=== PATIENT | female | born 1980 | race Caucasian/White ===

== ENCOUNTER 2021-06-23 14:07 | Inpatient (IN) ==
[2021-06-23 14:12] VITALS: BMI 34.3
[2021-06-23] MEDS ORDERED: ZOFRAN INJ 4 MG VIAL ONE (14:17)
[2021-06-23] MEDS ORDERED: NS 1,000 ML IV 1,000 ML ONE ×2 (14:17→17:36)
[2021-06-23] MEDS ORDERED: NS 1,000 ML IV 1,000 ML IV ONE (14:30)
[2021-06-23] MEDS ORDERED: ZOFRAN INJ 4 MG VIAL IVP ONE (14:30)
--- NOTE | 2021-06-23 15:06 | DR.SOBA ---
HPI Time Seen Time Seen by Provider: 06/23/21 14:45 Primary Care Physician Primary Care Physician: WOODY Complaints Chief Complaint Doctors Comments: 40 y/o female, ill for 1 week. Having a harsh, barky cough. Saw her MD. Has tested negative for Covid twice. Was treated with IM rocephin/steroid, then d/c'd to home with cefdinir, steroids and nebulizer treatment. Not much better. went back to work today. Started feeling dyspnea with exertion from her desk. + developed nausea, vomited x 1 after eating lunch. Started becoming lightheaded, nauseous, diaphoretic. Came here. Denies chest pain. No previous h/o lung or cardiac issues in the past. Chief Complaint:: PATIENT STATES SHE HAS BEEN HAVING DIFFICULTY BREATHING THAT STARTED TODAY. PATIENT STATES SHE HAS BEEN SICK FOR THE PAST WEEK AND SHE HAS BEEN TESTED FOR COVID TWICE, BUT WAS NEGATIVE. PATIENT HAS BEEN BEIUNG TREATED FOR A UPPER RESP INFECTION WITH ANTIBIOTIC AND BREATHING TREATMENTS. PATINET STATES SHE IS VERY NASUEATED AND SHE HAS VOMITED TODAY COVID-19 Coronavirus risk:travel/contact w/high risk person: No Has patient experienced Coronavirus symptoms: Yes Coronavirus symptoms experienced: Shortness of Breath Reviewed Nurses Notes Reviewed: Yes Source History Provided: Patient Mode of Arrival Mode of Arrival: Ambulatory Timing Onset of Chief Complaint: 06/16/21 PMH PMH Past Medical History: No Past Surgical History: Yes Surgical History: Family History History of Family Medical Conditions: Yes Family Medical History: Diabetes Mellitus, [place], Coronary Artery Disease and Hypertension Social History Does any household member use tobacco: No Alcohol Use: None Do you use any recreational Drugs:: No Lives With: Family Lives Where: Home Travel Risk Coronavirus risk:travel/contact w/high risk person: No Has patient experienced Coronavirus symptoms: Yes Coronavirus symptoms experienced: Shortness of Breath Infectious screening In the last 2 months have you had wt loss of >10#?: NO Have you had fever, night sweats or hemotysis?: No Have you traveled outside the country in the last 6 months?: No Isolation: Droplet ROS Review of Systems Constitutional: Diaphoresis and Weakness Eyes: No Symptoms Reported ENTM: No Symptoms Reported Respiratoy: Non-Productive Cough and Short of Breath Cardiovascular: No Symptoms Reported Gastrointestinal/Abdominal: Nausea and Vomiting Genitourinary: No Symptoms Reported Neurological: Weakness Musculoskeletal: No Symptoms Reported Integumentary: No Symptoms Reported Hematologic/Lymphatic: No Symptoms Reported Psychiatric: No Symptoms Reported All Other Systems: Reviewed and Negative PE Vital Signs Vitals: Temperature 97.6 F Pulse Rate 130 Respiratory Rate 20 Blood Pressure [Left Arm] 112/64 Blood Pressure 159/85 O2 Sat by Pulse Oximetry 93 General Limitations: No Limitations General Appearance: Alert and In No Apparent Distress Head Head Exam: Normal Inspection Eyes Eye exam: Normal Appearance, PERRL and EOMI ENT ENT Exam: Normal Exam and Mucous Membranes Moist Neck Neck Exam: Normal Inspection Chest Chest Inspection: Normal Inspection Respiratory Respiratory Exam: Normal Lung Sounds Bilat; negative Accessory Muscle Use and Respiratory Distress Respiratory Exam: Bilateral: Clear to Auscultation Cardiovascular Cardiovascular Exam: Regular Rate, Normal Rhythm and Normal Heart Sounds Abdominal Exam Abdominal Exam: Normal Inspection, Normal Bowel Sounds and Soft; negative Tenderness Extremities Extremities Exam: Normal Inspection, Full ROM and Tenderness; negative Edema Back Back Exam: Normal Inspection Neurologic Neurological Exam: Alert, Oriented X3 and CN II-XII Intact; negative Motor Senso ry Deficit Psychiatric Psychiatric Exam: Normal Affect Skin Skin Exam: Warm and Dry MDM Differential Diagnosis Differential Diagnosis: Bronchitis, CHF and Pneumonia Differential Diagnosis Comment:: Covid, Flu COURSE Treatment Treatment: Pt ill with URI symptoms over the past week, already treated with steroids/antibiotics. Feeling worse today. W/u initiated. Results show CXR to be acceptable. Chemistries with elevated WBC and hyperglycemia (483). Both possibly due to steroids (was on decadron 12 mg qday). Denies previous h/o DM. EMR shows glucose to have been elevated in the 200s last visit 2018 (had steroids then too, per pt). Recommend admission. Discussed with Dr Dow, covering for admissions, she accepts the admission. Pt given 5 U regular insulin here, additional IV fluids. Will admit on a sliding scale. ROR Labs Reviewed Result Diagrams: 06/23/21 14:00 06/23/21 14:00 Laboratory: WBC 15.1 X10^3/uL (3.6-10.0) H 06/23/21 14:00 RBC 5.05 X10^6/uL (3.5-5.4) 06/23/21 14:00 Hgb 9.0 g/dL (12.0-16.0) L 06/23/21 14:00 Hct 30.2 % (36.0-47.0) L 06/23/21 14:00 MCV 59.9 fL (80.0-100.0) L 06/23/21 14:00 MCH 17.8 pg (27.0-34.0) L 06/23/21 14:00 MCHC 29.8 g/dL (33.0-35.0) L 06/23/21 14:00 RDW 20.5 % (11.6-16.5) H 06/23/21 14:00 Plt Count 648 X10^3/uL (150.0-450.0) H 06/23/21 14:00 Plt Count Comment Increased (ADEQUATE) A 06/23/21 14:00 MPV 8.1 fL (7.4-11.0) 06/23/21 14:00 Neut % (Auto) 90.0 % (42.0-75.0) H 06/23/21 14:00 Lymph % (Auto) 6.5 % (21.0-51.0) L 06/23/21 14:00 [place] % (Auto) 3.1 % (0.0-13.0) 06/23/21 14:00 Eos % (Auto) 0.1 % (0.9-2.9) L 06/23/21 14:00 Baso % (Auto) 0.3 % (0.2-1.0) 06/23/21 14:00 Neut # (Auto) 13.6 x10^3/uL (2.2-4.8) H 06/23/21 14:00 Lymph # (Auto) 1.0 X10^3/uL (1.3-2.9) L 06/23/21 14:00 [place] # (Auto) 0.5 x10^3/uL (0.3-0.8) 06/23/21 14:00 Eos # (Auto) 0.0 x10^3/uL (0.0-0.2) 06/23/21 14:00 Baso # (Auto) 0.0 X10^3/uL (0.0-0.1) 06/23/21 14:00 Absolute Nucleated RBC 0.1 /100WBC 06/23/21 14:00 Plt Morphology Comment Normal (NORMAL) 06/23/21 14:00 RBC Morphology Abnormal (NORMAL) A 06/23/21 14:00 Anisocytosis 1+ A 06/23/21 14:00 Microcytosis 3+ A 06/23/21 14:00 Sodium 123 mmol/L (136-145) L* 06/23/21 14:00 Corrected Sodium 132 mmol/L (136-145) L 06/23/21 14:00 Potassium 4.8 mmol/L (3.5-5.1) 06/23/21 14:00 Chloride 89 mmol/L (98-107) L 06/23/21 14:00 Carbon Dioxide 24.0 mmol/L (21-32) 06/23/21 14:00 BUN 16 mg/dL (7-18) 06/23/21 14:00 Creatinine 1.02 mg/dL (0.55-1.02) 06/23/21 14:00 Est GFR (MDRD) Af Amer > 60 (>60) 06/23/21 14:00 Est GFR (MDRD) Non-Af > 60 (>60) 06/23/21 14:00 Glucose 483 mg/dL (65-99) H 06/23/21 14:00 Calcium 9.7 mg/dL (8.5-10.1) 06/23/21 14:00 Corrected Calcium 10.3 mg/dL (8.5-10.1) H 06/23/21 14:00 Total Bilirubin 1.00 mg/dL (0.2-1.0) 06/23/21 14:00 AST 7 Units/L (15-37) L 06/23/21 14:00 ALT 11 Units/L (12-78) L 06/23/21 14:00 Alkaline Phosphatase 83 Units/L (46-116) 06/23/21 14:00 Creatine Kinase 14 Units/L (26-192) L 06/23/21 14:00 CK-MB (CK-2) < 1.0 ng/mL (0-4.0) 06/23/21 14:00 CK/CKMB % Calc 7.1 % (<4) 06/23/21 14:00 Troponin I High Sens < 4.0 ng/L (4.0-60.0) L 06/23/21 14:00 Total Protein 9.7 g/dL (6.4-8.2) H 06/23/21 14:00 Albumin 3.3 g/dL (3.4-5.0) L 06/23/21 14:00 Globulin 6.4 g/dL (2.5-4.5) H 06/23/21 14:00 Albumin/Globulin Ratio 0.5 Ratio (1.1-2.1) L 06/23/21 14:00 SARS-CoV-2 (PCR) Negative (NEGATIVE) 06/23/21 15:00 Influenza Type A (PCR) Negative (NEGATIVE) 06/23/21 15:00 Influenza Type B (PCR) Negative (NEGATIVE) 06/23/21 15:00 RSV (PCR) Negative (NEGATIVE) 06/23/21 15:00 Opioid Opioid Risk Tool Age ([place] box if 16-45): Yes History of Preadolescent Sexual Abuse: No Total: 1 Total Score Risk Category: Low Risk Copyright: Darius CARRANZA predicting aberrant behaviors Diagnosis Discharge Problem: New onset type 2 diabetes mellitus, Hyponatremia
--- NOTE | 2021-06-23 15:30 | RAD ---
HISTORYDYSPNEA, CP, N/V CSECTION,STUDYCHEST, 1 VIEWCOMPARISONChest x-ray dated March 06, 2019.FINDINGSThe trachea is midline. The cardiac silhouette is unremarkable. The lungs are clear without focal infiltrate, pneumothorax, or effusion. The bony thorax is unremarkable.IMPRESSIONNo acute cardiopulmonary findings .Electronically signed by: ANTHONY GONZALEZ (Jun 23, 2021 15:29:29)
[2021-06-23 15:46] LABS: MONOCYTES # (AUTO) 0.5 x10^3/uL (0.3-0.8); MONOCYTES % (AUTO) 3.1 % (0.0-13.0)
[2021-06-23 15:51] LABS: BASOPHILS % (AUTO) 0.3 % (0.2-1.0); EOSINOPHILS % (AUTO) 0.1 % (0.9-2.9); HEMATOCRIT 30.2 % (36.0-47.0); LYMPHOCYTES % (AUTO) 6.5 % (21.0-51.0); MEAN CORPUSCULAR HEMOGLOBIN 17.8 pg (27.0-34.0); MEAN CORPUSCULAR HGB CONC 29.8 g/dL (33.0-35.0); MEAN CORPUSCULAR VOLUME 59.9 fL (80.0-100.0); MEAN PLATELET VOLUME 8.1 fL (7.4-11.0); NEUTROPHILS # (AUTO) 13.6 x10^3/uL (2.2-4.8); PLATELET COUNT 648 X10^3/uL (150.0-450.0); RED BLOOD COUNT 5.05 X10^6/uL (3.5-5.4); RED CELL DISTRIBUTION WIDTH 20.5 % (11.6-16.5); WHITE BLOOD COUNT 15.1 X10^3/uL (3.6-10.0)
[2021-06-23 15:55] LABS: MICROCYTOSIS 3+; PLATELET MORPHOLOGY COMMENT NORMAL (NORMAL)
[2021-06-23 15:56] LABS: ANISOCYTOSIS 1+
[2021-06-23 16:06] LABS: ALANINE AMINOTRANSFERASE 11 Units/L (12-78); ALBUMIN 3.3 g/dL (3.4-5.0); ALKALINE PHOSPHATASE 83 Units/L (46-116); ASPARTATE AMINO TRANSFERASE 7 Units/L (15-37); BLOOD UREA NITROGEN 16 mg/dL (7-18); CALCIUM 9.7 mg/dL (8.5-10.1); CHLORIDE 89 mmol/L (98-107); CKMB % 7.1 % (<4); COR CA(FOR HYPOALB) 10.3 mg/dL (8.5-10.1); COR NA(FOR HYPERGLY) 132 mmol/L (136-145); CREATINE KINASE 14 Units/L (26-192); CREATINE KINASE MB < 1.0 ng/mL (0-4.0); CREATININE 1.02 mg/dL (0.55-1.02); TOTAL PROTEIN 9.7 g/dL (6.4-8.2); eGFR NON BLACK RACES > 60 (>60)
[2021-06-23 16:09] LABS: SODIUM 123 mmol/L (136-145)
[2021-06-23] MEDS ORDERED: NovoLIN R (or HumuLIN R) IV ONE (17:26)
[2021-06-23] MEDS ORDERED: NovoLIN R (or HumuLIN R) ONE (17:36)
[2021-06-23] MEDS ORDERED: NS 1,000 ML IV 1,000 ML IV SCH (18:00)
[2021-06-23] MEDS ORDERED: NovoLIN R (or HumuLIN R) SUBCUT PRN (18:05)
[2021-06-23] MEDS: NS 1,000 ML IV 1,000 ML IV SCH (19:18)
[2021-06-23] MEDS ORDERED: SNACK - Diabetic Appropriate PO SCH ×2 (20:00)
[2021-06-24] MEDS: NS 1,000 ML IV 1,000 ML IV SCH (03:36)
[2021-06-24 05:25] LABS: BASOPHILS # (AUTO) 0.1 X10^3/uL (0.0-0.1); BASOPHILS % (AUTO) 0.7 % (0.2-1.0); EOSINOPHILS # (AUTO) 0.2 x10^3/uL (0.0-0.2); EOSINOPHILS % (AUTO) 2.3 % (0.9-2.9); HEMATOCRIT 25.5 % (36.0-47.0); HEMOGLOBIN 7.7 g/dL (12.0-16.0); MEAN CORPUSCULAR VOLUME 59.9 fL (80.0-100.0); MEAN PLATELET VOLUME 7.8 fL (7.4-11.0); MONOCYTES # (AUTO) 0.7 x10^3/uL (0.3-0.8); MONOCYTES % (AUTO) 8.4 % (0.0-13.0); NEUTROPHILS # (AUTO) 4.9 x10^3/uL (2.2-4.8); NEUTROPHILS % (AUTO) 62.6 % (42.0-75.0); PLATELET COUNT 431 X10^3/uL (150.0-450.0); RED BLOOD COUNT 4.26 X10^6/uL (3.5-5.4); RED CELL DISTRIBUTION WIDTH 20.3 % (11.6-16.5); WHITE BLOOD COUNT 7.8 X10^3/uL (3.6-10.0)
[2021-06-24 05:35] LABS: ALANINE AMINOTRANSFERASE 10 Units/L (12-78); ALBUMIN 2.7 g/dL (3.4-5.0); ALKALINE PHOSPHATASE 59 Units/L (46-116); ASPARTATE AMINO TRANSFERASE 7 Units/L (15-37); BLOOD UREA NITROGEN 11 mg/dL (7-18); CALCIUM 8.8 mg/dL (8.5-10.1); CARBON DIOXIDE 29.1 mmol/L (21-32); CHLORIDE 98 mmol/L (98-107); COR CA(FOR HYPOALB) 9.8 mg/dL (8.5-10.1); COR NA(FOR HYPERGLY) 134 mmol/L (136-145); CREATININE 0.59 mg/dL (0.55-1.02); SODIUM 132 mmol/L (136-145); TOTAL PROTEIN 7.7 g/dL (6.4-8.2); eGFR NON BLACK RACES > 60 (>60)
[2021-06-24 06:01] LABS: PLATELET MORPHOLOGY COMMENT NORMAL (NORMAL)
[2021-06-24 06:02] LABS: ANISOCYTOSIS 1+; HYPOCHROMASIA 2+; MICROCYTOSIS 3+
[2021-06-24 08:44] LABS: HEMOGLOBIN A1C 8.2 %
[2021-06-24] MEDS ORDERED: FOLIC ACID TAB 1 MG PO SCH (10:00)
[2021-06-24 11:48] LABS: HEMATOCRIT 27.1 % (36.0-47.0); HEMOGLOBIN 8.1 g/dL (12.0-16.0)
--- NOTE | 2021-06-24 12:36 | DR.SSS ---
SHORT STAY SUMMARY Admission Date Date of Admission: 06/23/21 Discharge Date Discharge Date: 06/24/21 Admission Diagnoses Admission Diagnoses: Hyponatremia Hyperglycemia Anemia Discharge Diagnoses Discharge Diagnoses: Hyponatremia Idon deficiency anemia Type 2 diabetes mellitus Folic deficiency Chief Complaint Chief Complaint: nausea, dizziness History of Present Illness History of Present Illness: Ms Rob is a 40 y/o female with no pertinent PMH presented with dizziness, nausea and diaphoresis. She had been sick for the past week with URI Sx. She saw her PCP and was tested for COVID twice, both negative. She was treated with abx and steroids. She reports going back to work yesterday and started feeling dizzy with nausea so came to the ER. Denies chest pain or SOB. Denies fever or chills. Patient states her URI Sx have improved. In the ER, she was noted to have hyponatremia and hyperglycemia. Her covid test was negative and also normal cardiac enzymes. Her glucose was above 400 and she was started on IV fluids and insulin. Denies hx of diabetes. Patient was admitted for further care. Past Surgical History Surgical History: Allergies Allergies Allergy/AdvReac Type Severity Reaction Status Date / Time No Known Drug Allergies Allergy Verified 03/06/19 21:36 Medications Home Medications: No Known Drug Allergies Allergy (Verified 03/06/19 21:36) CONTINUE taking the following medications albuterol sulfate [ProAir HFA] 2 puff INHALATION Q4-6H PRN 06/23/21 [History] ipratropium-albuterol 3 ml INHALATION Q4-6H PRN 06/23/21 [History] New Prescriptions ferrous gluconate 324 mg PO BIDWM 30 Days #60 tab 06/24/21 [Rx] folic acid 1 mg PO DAILY 30 Days #30 tab 06/24/21 [Rx] metformin 500 mg PO BIDWM 30 Days #60 tab 06/24/21 [Rx] Family History Family Medical History: Diabetes Mellitus, [place], Coronary Artery Disease and Hypertension Social History Does patient currently use any type of tobacco product: No Have you used tobacco products in the last 12 months: No Type of Tobacco Use: None Does any household member use tobacco: No Alcohol Use: None Drug Use: None Review of Systems Constitutional: Weakness and Malaise Eyes: No Symptoms Reported ENT: No Symptoms Reported Respiratory: Cough Cardiovascular: No Symptoms Reported Gastrointestinal: Nausea Genitourinary: No Symptoms Reported Musculoskeletal: No Symptoms Reported Skin: No Symptoms Reported Neurological: No Symptoms Reported Physical Exam Vital Signs: Last Vital Signs Temp 98.1 F 06/24/21 08:00 Pulse 94 H 06/24/21 08:00 Resp 20 06/24/21 08:00 BP 136/77 06/24/21 08:00 Pulse Ox 98 06/24/21 08:00 Oriented: Normal Eyes: Normal Ear: Normal Nose: Normal Throat: Normal Respiratory: Clear Throughout Cardiovascular: Normal Auscultation: Bowel Sounds: Normal Palpation: Normal Tenderness: Normal Skin: Normal Musculoskeletal: Normal Psychiatric: Normal Mood Description: Calm Affect: Normal Speech Pattern: Clear and Appropriate Labs Labs: Laboratory Last Values WBC 7.8 X10^3/uL (3.6-10.0) 06/24/21 04:40 RBC 4.26 X10^6/uL (3.5-5.4) 06/24/21 04:40 Hgb 8.1 g/dL (12.0-16.0) L 06/24/21 11:41 Hct 27.1 % (36.0-47.0) L 06/24/21 11:41 MCV 59.9 fL (80.0-100.0) L 06/24/21 04:40 MCH 18.0 pg (27.0-34.0) L 06/24/21 04:40 MCHC 30.0 g/dL (33.0-35.0) L 06/24/21 04:40 RDW 20.3 % (11.6-16.5) H 06/24/21 04:40 Plt Count 431 X10^3/uL (150.0-450.0) 06/24/21 04:40 Plt Count Comment Adequate (ADEQUATE) 06/24/21 04:40 MPV 7.8 fL (7.4-11.0) 06/24/21 04:40 Neut % (Auto) 62.6 % (42.0-75.0) 06/24/21 04:40 Lymph % (Auto) 26.0 % (21.0-51.0) 06/24/21 04:40 [place] % (Auto) 8.4 % (0.0-13.0) 06/24/21 04:40 Eos % (Auto) 2.3 % (0.9-2.9) 06/24/21 04:40 Baso % (Auto) 0.7 % (0.2-1.0) 06/24/21 04:40 Neut # (Auto) 4.9 x10^3/uL (2.2-4.8) H 06/24/21 04:40 Lymph # (Auto) 2.0 X10^3/uL (1.3-2.9) 06/24/21 04:40 [place] # (Auto) 0.7 x10^3/uL (0.3-0.8) 06/24/21 04:40 Eos # (Auto) 0.2 x10^3/uL (0.0-0.2) 06/24/21 04:40 Baso # (Auto) 0.1 X10^3/uL (0.0-0.1) 06/24/21 04:40 Absolute Nucleated RBC 0.1 /100WBC 06/24/21 04:40 Plt Morphology Comment Normal (NORMAL) 06/24/21 04:40 RBC Morphology Abnormal (NORMAL) A 06/24/21 04:40 Hypochromasia 2+ A 06/24/21 04:40 Anisocytosis 1+ A 06/24/21 04:40 Microcytosis 3+ A 06/24/21 04:40 Sodium 132 mmol/L (136-145) L 06/24/21 04:40 Corrected Sodium 134 mmol/L (136-145) L 06/24/21 04:40 Potassium 3.9 mmol/L (3.5-5.1) 06/24/21 04:40 Chloride 98 mmol/L (98-107) 06/24/21 04:40 Carbon Dioxide 29.1 mmol/L (21-32) 06/24/21 04:40 BUN 11 mg/dL (7-18) 06/24/21 04:40 Creatinine 0.59 mg/dL (0.55-1.02) 06/24/21 04:40 Est GFR (MDRD) Af Amer > 60 (>60) 06/24/21 04:40 Est GFR (MDRD) Non-Af > 60 (>60) 06/24/21 04:40 Glucose 200 mg/dL (65-99) H 06/24/21 04:40 POC Glucose (mg/dL) 191 mg/dL (65-99) H 06/24/21 05:02 Hemoglobin A1c 8.2 % 06/24/21 04:40 Calcium 8.8 mg/dL (8.5-10.1) 06/24/21 04:40 Corrected Calcium 9.8 mg/dL (8.5-10.1) 06/24/21 04:40 Iron 20 ug/dL (50-175) L 06/24/21 04:40 Transferrin 222 mg/dL (202-364) 06/24/21 04:40 Ferritin 40 ng/mL (8-252) 06/24/21 04:40 Total Bilirubin 0.60 mg/dL (0.2-1.0) 06/24/21 04:40 AST 7 Units/L (15-37) L 06/24/21 04:40 ALT 10 Units/L (12-78) L 06/24/21 04:40 Alkaline Phosphatase 59 Units/L (46-116) 06/24/21 04:40 Creatine Kinase 14 Units/L (26-192) L 06/23/21 14:00 CK-MB (CK-2) < 1.0 ng/mL (0-4.0) 06/23/21 14:00 CK/CKMB % Calc 7.1 % (<4) 06/23/21 14:00 Troponin I High Sens < 4.0 ng/L (4.0-60.0) L 06/23/21 14:00 Total Protein 7.7 g/dL (6.4-8.2) 06/24/21 04:40 Albumin 2.7 g/dL (3.4-5.0) L 06/24/21 04:40 Globulin 5.0 g/dL (2.5-4.5) H 06/24/21 04:40 Albumin/Globulin Ratio 0.5 Ratio (1.1-2.1) L 06/24/21 04:40 Vitamin B12 227 pg/mL (193-986) 06/24/21 04:40 Folate 6.1 ng/mL (>8.6) L 06/24/21 04:40 SARS-CoV-2 (PCR) Negative (NEGATIVE) 06/23/21 15:00 Influenza Type A (PCR) Negative (NEGATIVE) 06/23/21 15:00 Influenza Type B (PCR) Negative (NEGATIVE) 06/23/21 15:00 RSV (PCR) Negative (NEGATIVE) 06/23/21 15:00 Assessment/Plan (1) Dehydration: (2) Sinus tachycardia: (3) New onset type 2 diabetes mellitus: (4) Hyponatremia: (5) MILVIA (iron deficiency anemia): (6) Folic acid deficiency: Hospital Course Hospital Course: Patient was admitted for hyponatremia and hyperglycemia. Her glucose improved with insulin and she was started on metformin 500 mg BID. Her A1C was 8.3%. She also has anemia, work up show iron deficiency and folic acid deficiency. Denies active bleeding. Her Hgb was monitored and remained stable. She was started on iron and folic acid supplements. She will follow up with PCP for further anemia work up. She was stable for discharge, tolerating PO intake. She was ambulating in the room. She will follow up with PCP in one week. Discharge Medications Discharge Medications: Home Medication List albuterol sulfate [ProAir HFA] 2 puff INHALATION Q4-6H PRN 06/23/21 [History] ipratropium-albuterol 3 ml INHALATION Q4-6H PRN 06/23/21 [History] ferrous gluconate 324 mg PO BIDWM 30 Days #60 tab 06/24/21 [Rx] folic acid 1 mg PO DAILY 30 Days #30 tab 06/24/21 [Rx] metformin 500 mg PO BIDWM 30 Days #60 tab 06/24/21 [Rx] Prescriptions: ferrous gluconate Loyda Dow folic acid Loyda Dow metformin Loyda Dow Discharge Disposition Discharge Disposition: Home
[2021-06-24 14:07] VITALS: BP 134/79
[2021-06-24] MEDS ORDERED: GLUCOPHAGE PO SCH (17:00)
[2021-06-24] MEDS ORDERED: FERROUS GLUCONATE PO SCH (17:00)
== END 2021-06-24 14:07 | disposition home or self-care (01) | DRG 638 ==
LOC: ER 14:07 → MED/SURG 17:04
PROVIDERS: ADMIT Internal Medicine; ATTEND Internal Medicine
DX: E11.65 Type 2 diabetes mellitus with hyperglycemia; Z20.822 Contact with and (suspected) exposure to COVID-19; R06.02 Shortness of breath; E87.1 Hypo-osmolality and hyponatremia

== ENCOUNTER 2021-07-19 09:09 | Inpatient (IN) ==
[2021-07-19] MEDS ORDERED: NS 1,000 ML IV 1,000 ML IV ONE (09:29)
[2021-07-19] MEDS ORDERED: ZOFRAN INJ 4 MG VIAL IVP ONE (09:32)
[2021-07-19] MEDS ORDERED: TORADOL 30 MG VIAL IVP ONE (09:32)
--- NOTE | 2021-07-19 09:41 | DR.GENAD ---
HPI Time Seen Time Seen by Provider: 07/19/21 09:29 Complaint/Symptoms Chief Complaint Doctors Comments: 41 y/o female presents for evaluation. Hospitalized 3 weeks ago with syncope, hasn't felt right since. Has a persistent cough, has been running fevers. Cough productive of white sputum. Has had ne gative Covid tests, last done last week. Feeling malaise, weakness. Having nausea, some vomiting. Last DM last pm, was dark with increased odor. Has had runny nose. Over the past 3 days, developed a tender mass of the lower abdomen. Pain is dull, constant, worse or RLQ. Does not radiate. Is worse with movement and palpation. Nothing makes it better. LMP < 1 month. H/o . COVID-19 Coronavirus risk:travel/contact w/high risk person: No Has patient experienced Coronavirus symptoms: No Coronavirus symptoms experienced: Fever and Coughing Nurses notes reviewed Nurses Notes Review: Yes Source History Provided: Patient Mode of Arrival Mode of Arrival: Ambulatory PMH PMH Past Surgical History: Yes Surgical History: Family History Family Medical History: Diabetes Mellitus, [place], Coronary Artery Disease and Hypertension Social History Do you use any recreational Drugs:: No Travel Risk Coronavirus risk:travel/contact w/high risk person: No Has patient experienced Coronavirus symptoms: No ROS Review of Systems Constitutional: Fever and Weakness Eyes: No Symptoms Reported ENTM: Nose Discharge Respiratoy: Productive Cough; negative Short of Breath Cardiovascular: No Symptoms Reported Gastrointestinal/Abdominal: Abdominal Pain, Nausea and Vomiting Genitourinary: No Symptoms Reported Neurological: Weakness Musculoskeletal: Muscle Pain Integumentary: No Symptoms Reported Hematologic/Lymphatic: No Symptoms Reported Endocrine: No Symptoms Reported Psychiatric: No Symptoms Reported All Other Systems: Reviewed and Negative PE Vital Signs Vitals: Temperature 98.3 F Pulse Rate 112 Respiratory Rate 16 Blood Pressure [Left Arm] 134/79 Blood Pressure 103/55 O2 Sat by Pulse Oximetry 100 General Limitations: No Limitations General Appearance: Alert and In No Apparent Distress Head Head Exam: Normal Inspection Eyes Eye exam: Normal Appearance and PERRL ENT ENT Exam: Normal Exam Throat Exam: Normal Inspection Neck Neck Exam: Normal Inspection and Full ROM Chest Chest Inspection: Normal Inspection Respiratory Respiratory Exam: Normal Lung Sounds Bilat; negative Accessory Muscle Use and Respiratory Distress Respiratory Exam: Bilateral: Clear to Auscultation Cardiovascular Cardiovascular Exam: Regular Rate, Normal Rhythm, Tachycardia and Normal Heart Sounds Abdominal Exam Abdominal Exam: Normal Bowel Sounds and Mass (+ RLQ, 10 x 6 cms, firm, tender) Extremities Extremities Exam: Normal Inspection and Full ROM Back Back Exam: Normal Inspection and Full ROM; negative (R) CVA Tenderness and (L) CVA Tenderness Neurologic Neurological Exam: Alert, Oriented X3 and CN II-XII Intact Psychiatric Psychiatric Exam: Normal Affect Skin Skin Exam: Warm and Dry COURSE Treatment Treatment: 41 y/o femlae not feeling well past few weeks. W/u initiated. Now + for Covid. CXR acceptable. Labs show her to have hypokalemia (2.5), given IV po tassium. Hgb low at 6.2. CT of the abd/pelvis with IV only (pt was nauseous, oral not given) shows possible pelvic abscess (although appears more likely hernia clinically). Will consult with surgery, discussed with Dr Cooper. Will to medicine, will discuss with Dr Winter. Will cover with IV Zofran at the present time. 1225 - Discussed with Dr Winter, accepts the admission. ROR Labs Reviewed Laboratory Results Reviewed?: Yes Result Diagrams: 07/19/21 09:49 07/19/21 09:49 Laboratory: WBC 11.0 X10^3/uL (3.6-10.0) H 07/19/21 09:49 RBC 3.44 X10^6/uL (3.5-5.4) L 07/19/21 09:49 Hgb 6.2 g/dL (12.0-16.0) L* 07/19/21 09:49 Hct 20.7 % (36.0-47.0) L 07/19/21 09:49 MCV 60.2 fL (80.0-100.0) L 07/19/21 09:49 MCH 18.0 pg (27.0-34.0) L 07/19/21 09:49 MCHC 29.9 g/dL (33.0-35.0) L 07/19/21 09:49 RDW 20.1 % (11.6-16.5) H 07/19/21 09:49 Plt Count 380 X10^3/uL (150.0-450.0) 07/19/21 09:49 Plt Count Comment Adequate (ADEQUATE) 07/19/21 09:49 MPV 6.6 fL (7.4-11.0) L 07/19/21 09:49 Neut % (Auto) 89.9 % (42.0-75.0) H 07/19/21 09:49 Lymph % (Auto) 2.8 % (21.0-51.0) L 07/19/21 09:49 [place] % (Auto) 7.1 % (0.0-13.0) 07/19/21 09:49 Eos % (Auto) 0.1 % (0.9-2.9) L 07/19/21 09:49 Baso % (Auto) 0.1 % (0.2-1.0) L 07/19/21 09:49 Neut # (Auto) 9.9 x10^3/uL (2.2-4.8) H 07/19/21 09:49 Lymph # (Auto) 0.3 X10^3/uL (1.3-2.9) L 07/19/21 09:49 [place] # (Auto) 0.8 x10^3/uL (0.3-0.8) 07/19/21 09:49 Eos # (Auto) 0.0 x10^3/uL (0.0-0.2) 07/19/21 09:49 Baso # (Auto) 0.0 X10^3/uL (0.0-0.1) 07/19/21 09:49 Absolute Nucleated RBC 0.0 /100WBC 07/19/21 09:49 Plt Morphology Comment Normal (NORMAL) 07/19/21 09:49 RBC Morphology Abnormal (NORMAL) A 07/19/21 09:49 Hypochromasia 3+ A 07/19/21 09:49 Poikilocytosis Slight A 07/19/21 09:49 Anisocytosis 1+ A 07/19/21 09:49 Microcytosis 2+ A 07/19/21 09:49 Stomatocytes Present 07/19/21 09:49 Sodium 133 mmol/L (136-145) L 07/19/21 09:49 Corrected Sodium 135 mmol/L (136-145) L 07/19/21 09:49 Potassium 2.5 mmol/L (3.5-5.1) L* 07/19/21 09:49 Chloride 94 mmol/L (98-107) L 07/19/21 09:49 Carbon Dioxide 25.9 mmol/L (21-32) 07/19/21 09:49 BUN 11 mg/dL (7-18) 07/19/21 09:49 Creatinine 0.62 mg/dL (0.55-1.02) 07/19/21 09:49 Est GFR (MDRD) Af Amer > 60 (>60) 07/19/21 09:49 Est GFR (MDRD) Non-Af > 60 (>60) 07/19/21 09:49 Glucose 185 mg/dL (65-99) H 07/19/21 09:49 Calcium 8.6 mg/dL (8.5-10.1) 07/19/21 09:49 Corrected Calcium 10.1 mg/dL (8.5-10.1) 07/19/21 09:49 Total Bilirubin 1.10 mg/dL (0.2-1.0) H 07/19/21 09:49 AST 19 Units/L (15-37) 07/19/21 09:49 ALT 19 Units/L (12-78) 07/19/21 09:49 Alkaline Phosphatase 91 Units/L (46-116) 07/19/21 09:49 Total Protein 8.5 g/dL (6.4-8.2) H 07/19/21 09:49 Albumin 2.1 g/dL (3.4-5.0) L 07/19/21 09:49 Globulin 6.4 g/dL (2.5-4.5) H 07/19/21 09:49 Albumin/Globulin Ratio 0.3 Ratio (1.1-2.1) L 07/19/21 09:49 Lipase 57 Units/L (73-393) L 07/19/21 09:49 HCG, Qual Negative <10 mIU/mL 07/19/21 09:49 SARS CoV-2 RNA Rapid DARIEL Positive (NEGATIVE) A 07/19/21 09:56 Other Results Comments: see discussion XRAY XRAY Interpreted by: Radiologist X-ray Results: see discussion Opioid Opioid Risk Tool Age ([place] box if 16-45): No History of Preadolescent Sexual Abuse: No Total: 0 Total Score Risk Category: Low Risk Copyright: Darius CARRANZA predicting aberrant behaviors Diagnosis Discharge Problem: Abdominal mass, right lower quadrant, Acute hypokalemia Anemia Qualifiers: Anemia type: unspecified type Qualified Code(s): D64.9 - Anemia, unspecified
[2021-07-19] MEDS ORDERED: ZOFRAN INJ 4 MG VIAL ONE ×3 (09:42→22:39)
[2021-07-19] MEDS ORDERED: TORADOL 30 MG VIAL ONE (09:42)
[2021-07-19] MEDS ORDERED: NS 1,000 ML IV 1,000 ML ONE (09:42)
--- NOTE | 2021-07-19 10:00 | RAD ---
HISTORYCOUGH, FEVER, NAUSEA, ABD PAINSTUDYCHEST x-ray, 1 VIEWCOMPARISONX-ray 06/23/2021FINDINGSThe trachea is midline. The cardiac silhouette is unremarkable .Lungs appear clear. No pneumothorax or pleural effusion is seen.No acute bony abnormality is seen.IMPRESSIONNo acute cardiopulmonary abnormality is seen.Electronically signed by: Carroll Forrest (Jul 19, 2021 09:58:45)
[2021-07-19 10:18] LABS: ALANINE AMINOTRANSFERASE 19 Units/L (12-78); ALBUMIN 2.1 g/dL (3.4-5.0); ALKALINE PHOSPHATASE 91 Units/L (46-116); ASPARTATE AMINO TRANSFERASE 19 Units/L (15-37); BLOOD UREA NITROGEN 11 mg/dL (7-18); CALCIUM 8.6 mg/dL (8.5-10.1); CARBON DIOXIDE 25.9 mmol/L (21-32); CHLORIDE 94 mmol/L (98-107); COR CA(FOR HYPOALB) 10.1 mg/dL (8.5-10.1); COR NA(FOR HYPERGLY) 135 mmol/L (136-145); CREATININE 0.62 mg/dL (0.55-1.02); LIPASE 57 Units/L (73-393); SODIUM 133 mmol/L (136-145); TOTAL PROTEIN 8.5 g/dL (6.4-8.2); eGFR NON BLACK RACES > 60 (>60)
[2021-07-19 10:24] LABS: SERUM PREGNANCY TEST, QUAL NEGATIVE <10 mIU/mL
[2021-07-19 10:49] LABS: BASOPHILS % (AUTO) 0.1 % (0.2-1.0); EOSINOPHILS % (AUTO) 0.1 % (0.9-2.9); HEMATOCRIT 20.7 % (36.0-47.0); LYMPHOCYTES # (AUTO) 0.3 X10^3/uL (1.3-2.9); LYMPHOCYTES % (AUTO) 2.8 % (21.0-51.0); MEAN CORPUSCULAR HGB CONC 29.9 g/dL (33.0-35.0); MEAN CORPUSCULAR VOLUME 60.2 fL (80.0-100.0); MEAN PLATELET VOLUME 6.6 fL (7.4-11.0); MONOCYTES # (AUTO) 0.8 x10^3/uL (0.3-0.8); MONOCYTES % (AUTO) 7.1 % (0.0-13.0); NEUTROPHILS # (AUTO) 9.9 x10^3/uL (2.2-4.8); NEUTROPHILS % (AUTO) 89.9 % (42.0-75.0); RED BLOOD COUNT 3.44 X10^6/uL (3.5-5.4); RED CELL DISTRIBUTION WIDTH 20.1 % (11.6-16.5)
[2021-07-19 11:00] LABS: HEMOGLOBIN 6.2 g/dL (12.0-16.0)
[2021-07-19] MEDS ORDERED: K-RIDER 10 MEQ/NS 100 ML 10 MEQ/100 ML BAG IV ONE ×2 (11:17→11:40)
[2021-07-19 11:20] LABS: PLATELET MORPHOLOGY COMMENT NORMAL (NORMAL)
[2021-07-19 11:21] LABS: ANISOCYTOSIS 1+; HYPOCHROMASIA 3+; MICROCYTOSIS 2+; POIKILOCYTOSIS SLIGHT; STOMATOCYTES PRESENT
--- NOTE | 2021-07-19 11:24 | CT ---
HISTORYRLQ MASSSTUDYABDOMEN/PELVIS WITH CONCOMPARISONNone.TECHNIQUEMultiple axial images of the abdomen and pelvis were obtained from the lung bases to the pubic symphysis after the administration of IV contrast. Dose reduction techniques including Automated Exposure Control (AEC) and adjustment of mA and kV were utilized.FINDINGSThe lung bases are clear. The heart is normal in size. There is focal fatty infiltration of the liver adjacent the falciform ligament. The gallbladder, pancreas, and adrenal glands appear benign. The spleen is enlarged measuring 16.9 cm AP. See image 33 series 4. The kidneys appear benign without calculus, suspicious mass, or hydronephrosis.The urinary bladder appears benign. Uterus is present. There is wall thickening involving a long segment of the sigmoid colon with the left sided wall measuring up to 1.8 cm at the distal sigmoid colon image 73 series 4. There is a peripherally enhancing complex collection in the pelvis with internal debris and gas which extends from superior to the left uterine fundus image 74 series 4, anteriorly between the dome of the urinary bladder and inferior wall of the sigmoid colon image 34 series 7, and into the anterior pelvic wall. Together this collection measures up to 16.1 cm AP, approximately 6.4 cm craniocaudal, and approximately 10.1 cm medial-lateral image 77 series 4 and image 30 series 7. There is surrounding fat stranding and mild fluid about these collections. Normal amount of stool in the colon. The appendix appears normal. Normal caliber not atherosclerotic abdominal aorta. No discernible free air. No pathologic adenopathy. No acute osseous abnormality.IMPRESSIONThere is a large heterogeneous peripherally enhancing collection in the pelvis extending into the anterior pelvic wall as described above. The collection extends from superior to the uterus and in between the sigmoid colon and urinary bladder, through the anterior abdominal musculature, and into the subcutaneous fat. There is debris and gas within the collection. Suspect that this represents a large abscess although evolving hematoma with recent surgery can have a similar appearance. Recommend clinical correlation and aspiration as clinically warranted.There is severe wall thickening of a long segment of the sigmoid colon. This may be reactive from the presumed abscess or represent colitis. Recommend follow-up CT or colonoscopy after appropriate treatment to confirm resolution of sigmoid colon wall thickening. Differential includes perforated diverticulitis but this is less likely given the length of wall thickening and at the inflammation does not appear to be centered on the sigmoid colon.Splenomegaly. Recommend nonemergent clinical workup.Electronically signed by: Rip Zhu (Jul 19, 2021 11:23:01)
[2021-07-19] MEDS ORDERED: ZOSYN VIAL 3.375 GRAMS 3.375 G in NS 100 ML IV + SPIKE MINIBAG* 100 ML IV ONE (11:52)
[2021-07-19] MEDS ORDERED: NS 100 ML IV + SPIKE MINIBAG* 100 ML IV ONE ×2 (12:09→22:03)
[2021-07-19] MEDS ORDERED: ZOSYN VIAL 3.375 GRAMS IV ONE ×2 (12:09→22:03)
[2021-07-19] MEDS ORDERED: NovoLIN R (or HumuLIN R) SUBCUT PRN ×2 (16:22→20:33)
[2021-07-19] MEDS ORDERED: MORPHINE SULFATE INJ 2 MG INJ IVP PRN (16:24)
[2021-07-19] MEDS ORDERED: NS + KCL 20 MEQ/L 1,000 ML IV ONE (16:32)
[2021-07-19] MEDS ORDERED: MORPHINE SULFATE INJ 2 MG INJ ONE (16:32)
[2021-07-19] MEDS ORDERED: ZOFRAN INJ 4 MG VIAL IVP PRN (16:50)
[2021-07-19] MEDS ORDERED: NS + KCL 20 MEQ/L 1,000 ML IV SCH (17:00)
[2021-07-19] MEDS ORDERED: DUONEB 0.5 MG/3 MG (3 mL) NEB PRN ×2 (17:15→17:24)
[2021-07-19] MEDS ORDERED: DUONEB 0.5 MG/3 MG (3 mL) NEB SCH (18:00)
[2021-07-19 19:24] LABS: BILIRUBIN,URINE NEGATIVE (NEGATIVE); BLOOD/HEMOGLOBIN,URINE 4+ (NEGATIVE); GLUCOSE, URINE NEGATIVE (NEGATIVE); KETONES,URINE 4+ (NEGATIVE); LEUKOCYTE ESTERASE ,URINE 1+ (NEGATIVE); NITRITES,URINE NEGATIVE (NEGATIVE); PROTEIN,URINE 3+ (NEGATIVE); UROBILINOGEN,URINE 1+ (NORMAL)
[2021-07-19 19:37] LABS: APPEARANCE,URINE CLEAR (CLEAR); COLOR,URINE DARK YELLOW (YELLOW)
[2021-07-19 19:38] LABS: BACTERIA,URINE TRACE /HPF (NEGATIVE); SQUAMOUS EPITHELIAL CELL,UR MODERATE /HPF (NEGATIVE)
[2021-07-19] MEDS ORDERED: SNACK - Diabetic Appropriate PO SCH (20:00)
[2021-07-19] MEDS ORDERED: D5 1/2 NS 1,000 ML 1,000 ML IV ONE (20:13)
[2021-07-19] MEDS: D5 1/2 NS 1,000 ML 1,000 ML IV SCH (20:26)
[2021-07-19] MEDS ORDERED: TUSSIONEX PENNKINETIC SUSP PO PRN (20:33)
[2021-07-19] MEDS ORDERED: TYLENOL 325 MG TAB PO PRN (20:34)
[2021-07-19] MEDS ORDERED: TYLENOL 325 MG TAB PO ONE (20:39)
[2021-07-19] MEDS ORDERED: NS 250 ML IV 250 ML IV ONE (20:39)
[2021-07-19] MEDS: ZOSYN VIAL 3.375 GRAMS 3.375 G in NS 100 ML IV + SPIKE MINIBAG* 100 ML IV SCH (22:39)
[2021-07-19] MEDS: ZOFRAN INJ 4 MG VIAL IVP PRN (22:41)
[2021-07-20 01:59] LABS: HEMATOCRIT 23.8 % (36.0-47.0); HEMOGLOBIN 7.4 g/dL (12.0-16.0)
[2021-07-20] MEDS ORDERED: ZOSYN VIAL 3.375 GRAMS IV ONE ×2 (05:16→14:17)
[2021-07-20] MEDS ORDERED: NS 100 ML IV + SPIKE MINIBAG* 100 ML IV ONE ×2 (05:16→14:17)
[2021-07-20] MEDS ORDERED: ZOFRAN INJ 4 MG VIAL ONE ×2 (05:57→16:14)
[2021-07-20] MEDS: ZOFRAN INJ 4 MG VIAL IVP PRN ×3 (06:16→21:10)
[2021-07-20] MEDS: ZOSYN VIAL 3.375 GRAMS 3.375 G in NS 100 ML IV + SPIKE MINIBAG* 100 ML IV SCH ×3 (06:16→21:36)
[2021-07-20] MEDS ORDERED: POTASSIUM CHLORIDE LIQ 20 MEQ UDC PO PRN (07:02)
[2021-07-20] MEDS ORDERED: POTASSIUM CHL 40 MEQ/NS 0.45% 500 ML IV PRN (07:02)
[2021-07-20] MEDS ORDERED: KLOR-CON PO PRN (07:02)
[2021-07-20] MEDS ORDERED: MICRO K EXTEN CAP 10 MEQ PO PRN (07:02)
[2021-07-20] MEDS ORDERED: POTASSIUM CHL 60 MEQ/NS 0.45% 500 ML IV PRN (07:02)
[2021-07-20 07:50] LABS: BASOPHILS % (AUTO) 0.2 % (0.2-1.0); HEMATOCRIT 22.8 % (36.0-47.0); HEMOGLOBIN 7.1 g/dL (12.0-16.0); LYMPHOCYTES # (AUTO) 0.5 X10^3/uL (1.3-2.9); LYMPHOCYTES % (AUTO) 3.9 % (21.0-51.0); MEAN CORPUSCULAR HEMOGLOBIN 19.4 pg (27.0-34.0); MEAN CORPUSCULAR HGB CONC 30.9 g/dL (33.0-35.0); MEAN CORPUSCULAR VOLUME 62.6 fL (80.0-100.0); MEAN PLATELET VOLUME 6.9 fL (7.4-11.0); MONOCYTES % (AUTO) 7.2 % (0.0-13.0); NEUTROPHILS # (AUTO) 12.3 x10^3/uL (2.2-4.8); NEUTROPHILS % (AUTO) 88.7 % (42.0-75.0); RED BLOOD COUNT 3.64 X10^6/uL (3.5-5.4); RED CELL DISTRIBUTION WIDTH 21.9 % (11.6-16.5); WHITE BLOOD COUNT 13.8 X10^3/uL (3.6-10.0)
[2021-07-20 08:04] LABS: ANISOCYTOSIS 1+; HYPOCHROMASIA 3+; MICROCYTOSIS 2+; PLATELET MORPHOLOGY COMMENT NORMAL (NORMAL)
[2021-07-20 08:05] LABS: ALANINE AMINOTRANSFERASE 15 Units/L (12-78); ALBUMIN 1.6 g/dL (3.4-5.0); ALKALINE PHOSPHATASE 81 Units/L (46-116); ASPARTATE AMINO TRANSFERASE 20 Units/L (15-37); BLOOD UREA NITROGEN 6 mg/dL (7-18); CALCIUM 7.8 mg/dL (8.5-10.1); CHLORIDE 97 mmol/L (98-107); COR CA(FOR HYPOALB) 9.7 mg/dL (8.5-10.1); COR NA(FOR HYPERGLY) 136 mmol/L (136-145); CREATININE 0.58 mg/dL (0.55-1.02); SODIUM 134 mmol/L (136-145); eGFR NON BLACK RACES > 60 (>60)
[2021-07-20] MEDS: D5 1/2 NS 1,000 ML 1,000 ML IV SCH ×2 (08:38→20:30)
[2021-07-20] MEDS ORDERED: DIPRIVAN VIAL 20 ML ONE (10:42)
[2021-07-20] MEDS ORDERED: NS 1,000 ML IV 1,000 ML ONE ×2 (10:49→14:37)
--- NOTE | 2021-07-20 11:18 | DR.H&P ---
H&P History & Physical for Day of: H&P Date: 07/19/21 Chief Complaint Chief Complaint: Generalized weakness Abdominal pain, Cough, Congestion Allergies Allergies Allergy/AdvReac Type Severity Reaction Status Date / Time No Known Drug Allergies Allergy Verified 07/19/21 09:09 History of Present Illness History of Present Illness: Pt is a 41 year old female past medical history of DMT2 presenting with generalized weakness and lower abdominal pain. Pt reports symptoms have been gradually worsening. She reports feeling pain and "mass" in her lower abdomen for the past two days. She also has not been taking any iron supplements or metformin that she was prescribed prior to her discharge from the hospital. Reports her pcp and her decided diet control for diabetes. In the ED, labs/imaging: Wbc 11, Hgb 6.2, Plt 380, Na 133, K 2.5, Creatinine 0.62, Glucose 185, COVID-19 positive, CT Abdomen/Pelvis was obtained that revealed a large mass with peripheral enhancement in the pelvis protruding into the anterior pelvic wall and into the subcutaneous tissue. There is debris and gas within the collection suspicious for large abscess. There was some thickening of the long segment of the sigmoid colon. CXR: no acute cardiopulmonary abnormalities. Pt was started on IVF NS+KCL@75ml/h, antibiotics: IV Zosyn, and SSI. Will keep NPO. Replete potassium per protocol. Order and transfuse 1 unit packed red blood cells. Seriel H/H. General surgery consulted, follow up recommendations. Pt did test positive for COVID-19, her oxygen saturations are appropriate on room air. Will continue to closely monitor and follow up labs/imaging. Past Surgical History Surgical History: Family History Family Medical History: Diabetes Mellitus and Heart Failure Social History Does patient currently use any type of tobacco product: No Have you used tobacco products in the last 12 months: No Type of Tobacco Use: None Does any household member use tobacco: No Alcohol Use: None Medications Home Medications: No Known Drug Allergies Allergy (Verified 07/19/21 09:09) CONTINUE taking the following medications glipizide 2.5 mg PO DAILY 07/19/21 [History] ivermectin 12 mg PO HS 07/19/21 [History] Labs Result Diagrams: 07/20/21 07:42 07/20/21 07:42 Labs: Laboratory WBC 13.8 X10^3/uL (3.6-10.0) H 07/20/21 07:42 RBC 3.64 X10^6/uL (3.5-5.4) 07/20/21 07:42 Hgb 7.1 g/dL (12.0-16.0) L 07/20/21 07:42 Hct 22.8 % (36.0-47.0) L 07/20/21 07:42 MCV 62.6 fL (80.0-100.0) L 07/20/21 07:42 MCH 19.4 pg (27.0-34.0) L 07/20/21 07:42 MCHC 30.9 g/dL (33.0-35.0) L 07/20/21 07:42 RDW 21.9 % (11.6-16.5) H 07/20/21 07:42 Plt Count 332 X10^3/uL (150.0-450.0) 07/20/21 07:42 Plt Count Comment Adequate (ADEQUATE) 07/20/21 07:42 MPV 6.9 fL (7.4-11.0) L 07/20/21 07:42 Neut % (Auto) 88.7 % (42.0-75.0) H 07/20/21 07:42 Lymph % (Auto) 3.9 % (21.0-51.0) L 07/20/21 07:42 [place] % (Auto) 7.2 % (0.0-13.0) 07/20/21 07:42 Eos % (Auto) 0.0 % (0.9-2.9) L 07/20/21 07:42 Baso % (Auto) 0.2 % (0.2-1.0) 07/20/21 07:42 Neut # (Auto) 12.3 x10^3/uL (2.2-4.8) H 07/20/21 07:42 Lymph # (Auto) 0.5 X10^3/uL (1.3-2.9) L 07/20/21 07:42 [place] # (Auto) 1.0 x10^3/uL (0.3-0.8) H 07/20/21 07:42 Eos # (Auto) 0.0 x10^3/uL (0.0-0.2) 07/20/21 07:42 Baso # (Auto) 0.0 X10^3/uL (0.0-0.1) 07/20/21 07:42 Absolute Nucleated RBC 0.0 /100WBC 07/20/21 07:42 Plt Morphology Comment Normal (NORMAL) 07/20/21 07:42 RBC Morphology Abnormal (NORMAL) A 07/20/21 07:42 Dimorphic RBCs Slight 07/20/21 07:42 Hypochromasia 3+ A 07/20/21 07:42 Poikilocytosis Slight A 07/19/21 09:49 Anisocytosis 1+ A 07/20/21 07:42 Microcytosis 2+ A 07/20/21 07:42 Stomatocytes Present 07/19/21 09:49 Sodium 134 mmol/L (136-145) L 07/20/21 07:42 Corrected Sodium 136 mmol/L (136-145) 07/20/21 07:42 Potassium 2.4 mmol/L (3.5-5.1) L* 07/20/21 07:42 Chloride 97 mmol/L (98-107) L 07/20/21 07:42 Carbon Dioxide 29.0 mmol/L (21-32) 07/20/21 07:42 BUN 6 mg/dL (7-18) L 07/20/21 07:42 Creatinine 0.58 mg/dL (0.55-1.02) 07/20/21 07:42 Est GFR (MDRD) Af Amer > 60 (>60) 07/20/21 07:42 Est GFR (MDRD) Non-Af > 60 (>60) 07/20/21 07:42 Glucose 176 mg/dL (65-99) H 07/20/21 07:42 POC Glucose (mg/dL) 160 mg/dL (65-99) H 07/20/21 06:22 Calcium 7.8 mg/dL (8.5-10.1) L 07/20/21 07:42 Corrected Calcium 9.7 mg/dL (8.5-10.1) 07/20/21 07:42 Total Bilirubin 1.40 mg/dL (0.2-1.0) H 07/20/21 07:42 AST 20 Units/L (15-37) 07/20/21 07:42 ALT 15 Units/L (12-78) 07/20/21 07:42 Alkaline Phosphatase 81 Units/L (46-116) 07/20/21 07:42 Total Protein 7.0 g/dL (6.4-8.2) 07/20/21 07:42 Albumin 1.6 g/dL (3.4-5.0) L 07/20/21 07:42 Globulin 5.4 g/dL (2.5-4.5) H 07/20/21 07:42 Albumin/Globulin Ratio 0.3 Ratio (1.1-2.1) L 07/20/21 07:42 Lipase 57 Units/L (73-393) L 07/19/21 09:49 HCG, Qual Negative <10 mIU/mL 07/19/21 09:49 Specimen Type Clean catch urine 07/19/21 19:09 Urine Color Dark yellow (YELLOW) 07/19/21 19:09 Urine Appearance Clear (CLEAR) 07/19/21 19:09 Urine pH 6.0 (5.0 - 8.0) 07/19/21 19:09 Ur Specific [place] 1.010 (1.000-1.030) 07/19/21 19:09 Urine Protein 3+ (NEGATIVE) 07/19/21 19:09 Urine Glucose (UA) Negative (NEGATIVE) 07/19/21 19:09 Urine Ketones 4+ (NEGATIVE) 07/19/21 19:09 Urine Occult Blood 4+ (NEGATIVE) 07/19/21 19:09 Urine Nitrite Negative (NEGATIVE) 07/19/21 19:09 Urine Bilirubin Negative (NEGATIVE) 07/19/21 19:09 Urine Urobilinogen 1+ (NORMAL) 07/19/21 19:09 Ur Leukocyte Esterase 1+ (NEGATIVE) 07/19/21 19:09 Urine RBC 5-10 /HPF (0-3) A 07/19/21 19:09 Urine WBC 5-10 /HPF (0-5) A 07/19/21 19:09 Ur Squamous Epith Cells Moderate /HPF (NEGATIVE) 07/19/21 19:09 Urine Bacteria Trace /HPF (NEGATIVE) 07/19/21 19:09 Ur Culture Indicated? No/not indicated 07/19/21 19:09 SARS CoV-2 RNA Rapid DARIEL Positive (NEGATIVE) A 07/19/21 09:56 Blood Type O POSITIVE 07/19/21 16:45 Antibody Screen Negative 07/19/21 16:45 Crossmatch See Detail 07/19/21 16:45 Review of Systems Constitutional: Weakness; denies Fever and Chills Eyes: No Symptoms Reported ENT: No Symptoms Reported Respiratory: Cough; denies Shortness of Breath and Wheezing Cardiovascular: No Symptoms Reported Gastrointestinal: Abdominal Pain Genitourinary: No Symptoms Reported Musculoskeletal: No Symptoms Reported Skin: No Symptoms Reported Neurological: No Symptoms Reported Physical Exam Vital Signs: Temperature 99.5 F Pulse Rate [Apical] 113 Pulse Rate 122 Respiratory Rate 18 Blood Pressure [Left Arm] 119/69 Blood Pressure 110/60 O2 Sat by Pulse Oximetry 96 Oriented: Normal Eyes: Normal Ear: Normal Nose: Normal Throat: Normal Respiratory: Clear Throughout Cardiovascular: Normal : Normal Auscultation: Bowel Sounds: Normal Palpation: Normal Tenderness: RLQ, LUQ and Mild Skin: Normal Musculoskeletal: Normal Psychiatric: Normal Mood Description: Calm and Appropriate Affect: Normal Speech Pattern: Clear and Appropriate Assessment/Plan (1) Abdominal mass, right lower quadrant: Status: Acute Plan: surgery consult IV antibiotics (2) Acute hypokalemia: Status: Acute (3) Symptomatic anemia: Status: Acute (4) COVID-19: Status: Acute Review H&P Reviewed: Yes Patient was examined?: Yes
[2021-07-20] MEDS ORDERED: BETADINE SOLN ONE (13:54)
--- NOTE | 2021-07-20 13:54 | PCM.PROG ---
Progress Note Progress Note for Day of Date of Exam: 07/20/21 Subjective Subjective: Pt is a 41 year old female past medical history of DMT2 admitted for Abdominal mass/abscess rule out, Hypokalemia, Symptomatic anemia, COVID-19 positive. This morning she reports no significant change in her symptoms of feeling weak and fatigue. Labs/imaging: Wbc 13.8, Hgb 7.1, Plt 332, Na 134, K 2.4, Creatinine 0.58, Glucose 176. She did receive 1 unit packed red blood cells yesterday with hemoglobin responded appropriately. She is hypokalemic this morning, continue to replete per protocol. Continue current treatments of: IVF NS+KCL@75ml/h, antibiotics: IV Zosyn, and SSI. Pt was NPO overnight and received bowel prep for scheduled sigmoidoscopy this morning. Otherwise continue with shannon mendieta treatment plan. Breezy H/H. General surgery following. Continue to closely monitor and follow up labs/imaging. Past Medical Family Social History Past Med/Fam/Surg Hx: No changes since H&P Allergies: Allergies No Known Drug Allergies Allergy (Verified 07/19/21 09:09) Review of Systems ROS: No change since H&P Vital Signs and I&O's Vital Signs: Temperature 98.7 F Pulse Rate [Apical] 111 Pulse Rate 122 Respiratory Rate 19 Blood Pressure [Left Arm] 96/52 Blood Pressure 110/60 O2 Sat by Pulse Oximetry 99 Intake and Output: Intake & Output 07/17/21 07/18/21 07/19/21 07/20/21 23:59 23:59 23:59 23:59 Intake Total 3900 / 3900 1458 / 1458 Balance 3900 / 3900 1458 / 1458 Physical Exam Oriented: Normal Eyes: Normal Ear: Normal Nose: Normal Throat: Normal Respiratory: Normal Cardiovascular: Normal : Normal Auscultation: Bowel Sounds: Normal Tenderness: RLQ and Mild Skin: Normal Musculoskeletal: Normal Psychiatric: Normal Mood Description: Calm and Appropriate Affect: Normal Speech Pattern: Clear and Appropriate Laboratory and Diagnostics Result Diagrams: 07/20/21 07:42 07/20/21 07:42 Labs: Laboratory WBC 13.8 X10^3/uL (3.6-10.0) H 07/20/21 07:42 RBC 3.64 X10^6/uL (3.5-5.4) 07/20/21 07:42 Hgb 7.1 g/dL (12.0-16.0) L 07/20/21 07:42 Hct 22.8 % (36.0-47.0) L 07/20/21 07:42 MCV 62.6 fL (80.0-100.0) L 07/20/21 07:42 MCH 19.4 pg (27.0-34.0) L 07/20/21 07:42 MCHC 30.9 g/dL (33.0-35.0) L 07/20/21 07:42 RDW 21.9 % (11.6-16.5) H 07/20/21 07:42 Plt Count 332 X10^3/uL (150.0-450.0) 07/20/21 07:42 Plt Count Comment Adequate (ADEQUATE) 07/20/21 07:42 MPV 6.9 fL (7.4-11.0) L 07/20/21 07:42 Neut % (Auto) 88.7 % (42.0-75.0) H 07/20/21 07:42 Lymph % (Auto) 3.9 % (21.0-51.0) L 07/20/21 07:42 [place] % (Auto) 7.2 % (0.0-13.0) 07/20/21 07:42 Eos % (Auto) 0.0 % (0.9-2.9) L 07/20/21 07:42 Baso % (Auto) 0.2 % (0.2-1.0) 07/20/21 07:42 Neut # (Auto) 12.3 x10^3/uL (2.2-4.8) H 07/20/21 07:42 Lymph # (Auto) 0.5 X10^3/uL (1.3-2.9) L 07/20/21 07:42 [place] # (Auto) 1.0 x10^3/uL (0.3-0.8) H 07/20/21 07:42 Eos # (Auto) 0.0 x10^3/uL (0.0-0.2) 07/20/21 07:42 Baso # (Auto) 0.0 X10^3/uL (0.0-0.1) 07/20/21 07:42 Absolute Nucleated RBC 0.0 /100WBC 07/20/21 07:42 Plt Morphology Comment Normal (NORMAL) 07/20/21 07:42 RBC Morphology Abnormal (NORMAL) A 07/20/21 07:42 Dimorphic RBCs Slight 07/20/21 07:42 Hypochromasia 3+ A 07/20/21 07:42 Poikilocytosis Slight A 07/19/21 09:49 Anisocytosis 1+ A 07/20/21 07:42 Microcytosis 2+ A 07/20/21 07:42 Stomatocytes Present 07/19/21 09:49 Sodium 134 mmol/L (136-145) L 07/20/21 07:42 Corrected Sodium 136 mmol/L (136-145) 07/20/21 07:42 Potassium 2.4 mmol/L (3.5-5.1) L* 07/20/21 07:42 Chloride 97 mmol/L (98-107) L 07/20/21 07:42 Carbon Dioxide 29.0 mmol/L (21-32) 07/20/21 07:42 BUN 6 mg/dL (7-18) L 07/20/21 07:42 Creatinine 0.58 mg/dL (0.55-1.02) 07/20/21 07:42 Est GFR (MDRD) Af Amer > 60 (>60) 07/20/21 07:42 Est GFR (MDRD) Non-Af > 60 (>60) 07/20/21 07:42 Glucose 176 mg/dL (65-99) H 07/20/21 07:42 POC Glucose (mg/dL) 163 mg/dL (65-99) H 07/20/21 12:29 Calcium 7.8 mg/dL (8.5-10.1) L 07/20/21 07:42 Corrected Calcium 9.7 mg/dL (8.5-10.1) 07/20/21 07:42 Total Bilirubin 1.40 mg/dL (0.2-1.0) H 07/20/21 07:42 AST 20 Units/L (15-37) 07/20/21 07:42 ALT 15 Units/L (12-78) 07/20/21 07:42 Alkaline Phosphatase 81 Units/L (46-116) 07/20/21 07:42 Total Protein 7.0 g/dL (6.4-8.2) 07/20/21 07:42 Albumin 1.6 g/dL (3.4-5.0) L 07/20/21 07:42 Globulin 5.4 g/dL (2.5-4.5) H 07/20/21 07:42 Albumin/Globulin Ratio 0.3 Ratio (1.1-2.1) L 07/20/21 07:42 Lipase 57 Units/L (73-393) L 07/19/21 09:49 HCG, Qual Negative <10 mIU/mL 07/19/21 09:49 Specimen Type Clean catch urine 07/19/21 19:09 Urine Color Dark yellow (YELLOW) 07/19/21 19:09 Urine Appearance Clear (CLEAR) 07/19/21 19:09 Urine pH 6.0 (5.0 - 8.0) 07/19/21 19:09 Ur Specific [place] 1.010 (1.000-1.030) 07/19/21 19:09 Urine Protein 3+ (NEGATIVE) 07/19/21 19:09 Urine Glucose (UA) Negative (NEGATIVE) 07/19/21 19:09 Urine Ketones 4+ (NEGATIVE) 07/19/21 19:09 Urine Occult Blood 4+ (NEGATIVE) 07/19/21 19:09 Urine Nitrite Negative (NEGATIVE) 07/19/21 19:09 Urine Bilirubin Negative (NEGATIVE) 07/19/21 19:09 Urine Urobilinogen 1+ (NORMAL) 07/19/21 19:09 Ur Leukocyte Esterase 1+ (NEGATIVE) 07/19/21 19:09 Urine RBC 5-10 /HPF (0-3) A 07/19/21 19:09 Urine WBC 5-10 /HPF (0-5) A 07/19/21 19:09 Ur Squamous Epith Cells Moderate /HPF (NEGATIVE) 07/19/21 19:09 Urine Bacteria Trace /HPF (NEGATIVE) 07/19/21 19:09 Ur Culture Indicated? No/not indicated 07/19/21 19:09 SARS CoV-2 RNA Rapid DARIEL Positive (NEGATIVE) A 07/19/21 09:56 Blood Type O POSITIVE 07/19/21 16:45 Antibody Screen Negative 07/19/21 16:45 Crossmatch See Detail 07/19/21 16:45 Plan (1) Abdominal mass, right lower quadrant: Status: Acute Plan: surgery consult IV antibiotics (2) Acute hypokalemia: Status: Acute (3) Symptomatic anemia: Status: Acute (4) COVID-19: Status: Acute (5) Abdominal abscess: Status: Acute Plan: IV antibiotics
[2021-07-20] MEDS ORDERED: FENTANYL VIAL INJ 100 mcg ONE (14:08)
[2021-07-20] MEDS ORDERED: LR 1,000 ML IV 1,000 ML IV ONE (14:08)
[2021-07-20] MEDS ORDERED: KETAMINE HCL ONE (14:10)
[2021-07-20] MEDS ORDERED: DIPRIVAN VIAL ONE (14:10)
[2021-07-20] MEDS ORDERED: VERSED ONE (14:10)
[2021-07-20] MEDS ORDERED: XYLOCAINE 2 % (PLAIN) ONE (14:10)
[2021-07-20] MEDS ORDERED: XYLOCAINE 1 % (PLAIN) ONE (14:11)
--- NOTE | 2021-07-20 16:00 | OR.IMMED ---
Immediate Post-Op Note - Immediate Post-Op Note Pre-Op Diagnosis: anemia , abnormal abdominal / pelvic CT . pelvic and a bdominal wall abscess . Post-Op Diagnosis: limited sigmoidoscopy . abdominal and deep pelvic abscess Procedure: limited sigmoidoscopy . needle aspirate lower abdominal wall , pelvic abscess Description of Procedure: see report . Specimens Removed: purulent material from abdominal wall abscess Drains: NONE Complications: none . Condition: Stable (for I&D lower abdominal wa abscess later on rtoday .)
[2021-07-20] MEDS: MORPHINE SULFATE INJ 2 MG INJ IVP PRN ×2 (16:13→20:30)
[2021-07-20] MEDS ORDERED: MORPHINE SULFATE INJ 2 MG INJ ONE (16:13)
[2021-07-21] MEDS: ZOSYN VIAL 3.375 GRAMS 3.375 G in NS 100 ML IV + SPIKE MINIBAG* 100 ML IV SCH ×3 (06:10→21:59)
[2021-07-21 06:14] LABS: BASOPHILS % (AUTO) 0.2 % (0.2-1.0); EOSINOPHILS % (AUTO) 0.1 % (0.9-2.9); LYMPHOCYTES # (AUTO) 0.9 X10^3/uL (1.3-2.9); LYMPHOCYTES % (AUTO) 7.9 % (21.0-51.0); MEAN CORPUSCULAR HEMOGLOBIN 19.3 pg (27.0-34.0); MEAN CORPUSCULAR VOLUME 62.1 fL (80.0-100.0); MEAN PLATELET VOLUME 7.2 fL (7.4-11.0); MONOCYTES # (AUTO) 0.8 x10^3/uL (0.3-0.8); NEUTROPHILS # (AUTO) 9.6 x10^3/uL (2.2-4.8); NEUTROPHILS % (AUTO) 84.8 % (42.0-75.0); RED BLOOD COUNT 3.21 X10^6/uL (3.5-5.4); RED CELL DISTRIBUTION WIDTH 21.5 % (11.6-16.5); WHITE BLOOD COUNT 11.3 X10^3/uL (3.6-10.0)
[2021-07-21 06:28] LABS: ALANINE AMINOTRANSFERASE 11 Units/L (12-78); ALBUMIN 1.4 g/dL (3.4-5.0); ALKALINE PHOSPHATASE 65 Units/L (46-116); ASPARTATE AMINO TRANSFERASE 15 Units/L (15-37); BLOOD UREA NITROGEN 6 mg/dL (7-18); CALCIUM 7.9 mg/dL (8.5-10.1); CARBON DIOXIDE 32.3 mmol/L (21-32); CHLORIDE 98 mmol/L (98-107); COR NA(FOR HYPERGLY) 136 mmol/L (136-145); CREATININE 0.61 mg/dL (0.55-1.02); SODIUM 135 mmol/L (136-145); TOTAL PROTEIN 6.5 g/dL (6.4-8.2); eGFR NON BLACK RACES > 60 (>60)
[2021-07-21 06:33] LABS: HEMOGLOBIN 6.2 g/dL (12.0-16.0)
[2021-07-21 06:43] LABS: PLATELET MORPHOLOGY COMMENT NORMAL (NORMAL)
[2021-07-21 06:44] LABS: ANISOCYTOSIS 1+; HYPOCHROMASIA 3+; MICROCYTOSIS 2+
[2021-07-21] MEDS ORDERED: NS 100 ML IV 100 ML with VENOFER 400 MG IV NR ×2 (10:14)
[2021-07-21] MEDS: D5 1/2 NS 1,000 ML 1,000 ML IV SCH ×3 (10:41→21:59)
[2021-07-21 13:26] LABS: CRYPTOSPORIDIUM PARVUM ANTIGEN NEGATIVE (NEGATIVE); GIARDIA LAMBLIA ANTIGEN NEGATIVE (NEGATIVE)
[2021-07-21] MEDS: K-DUR TAB 20 MEQ PO PRN ×3 (13:43→20:58)
[2021-07-21] MEDS: MORPHINE SULFATE INJ 2 MG INJ IVP PRN ×2 (14:10→20:58)
[2021-07-21] MEDS: GOLYTELY or GAVILYTE or Equivalent PO SCH (15:19)
--- NOTE | 2021-07-21 15:31 | DR.PROGNOT ---
Hospital Progress Notes - Progress Note for Day of: Progress Note Date: 07/21/21 - Chief Complaint Chief Complaint: feeling better after draining the abscess . having transfusion today .. - Past Medical Family Social History Past Med/Fam/Surg Hx: No changes since H&P Allergies: Allergies No Known Drug Allergies Allergy (Verified 07/19/21 09:09) - Review Of Systems ROS: No change since H&P - Vital Signs Vital Signs: Temperature 98.5 F Pulse Rate [Apical] 90 Pulse Rate 122 Respiratory Rate 18 Blood Pressure [Left Arm] 91/52 Blood Pressure 110/60 O2 Sat by Pulse Oximetry 100 - Physical Exam Oriented: Normal Eyes: Normal Ear: Normal Nose: Normal Throat: Normal Respiratory: Normal Cardiovascular: Normal : Normal GI:Auscultation: Normal GI:Palpation: Normal GI: Tenderness: RLQ (soft abdomen with moderate tenderness RLQ and suprapubic area .), Mild Skin: Normal Musculoskeletal: Normal Psychiatric: Normal Mood Description: Calm, Appropriate Affect: Normal Speech Pattern: Clear, Appropriate - Laboratory and Diagnostics Result Diagrams: 07/21/21 05:29 07/21/21 05:29 Labs: 07/21/21 11:10 Stool - Final 07/20/21 14:35 Abdomen Wound Gram Stain - Final 07/20/21 14:35 Abdomen Wound Culture - Preliminary 07/20/21 11:12 Abdomen Wound Gram Stain - Final 07/20/21 11:12 Abdomen Wound Culture - Preliminary Laboratory WBC 11.3 X10^3/uL (3.6-10.0) H 07/21/21 05:29 RBC 3.21 X10^6/uL (3.5-5.4) L 07/21/21 05:29 Hgb 6.2 g/dL (12.0-16.0) L* 07/21/21 05:29 Hct 20.0 % (36.0-47.0) L* 07/21/21 05:29 MCV 62.1 fL (80.0-100.0) L 07/21/21 05:29 MCH 19.3 pg (27.0-34.0) L 07/21/21 05:29 MCHC 31.0 g/dL (33.0-35.0) L 07/21/21 05:29 RDW 21.5 % (11.6-16.5) H 07/21/21 05:29 Plt Count 290 X10^3/uL (150.0-450.0) 07/21/21 05:29 Plt Count Comment Adequate (ADEQUATE) 07/21/21 05:29 MPV 7.2 fL (7.4-11.0) L 07/21/21 05:29 Neut % (Auto) 84.8 % (42.0-75.0) H 07/21/21 05:29 Lymph % (Auto) 7.9 % (21.0-51.0) L 07/21/21 05:29 [place] % (Auto) 7.0 % (0.0-13.0) 07/21/21 05:29 Eos % (Auto) 0.1 % (0.9-2.9) L 07/21/21 05:29 Baso % (Auto) 0.2 % (0.2-1.0) 07/21/21 05:29 Neut # (Auto) 9.6 x10^3/uL (2.2-4.8) H 07/21/21 05:29 Lymph # (Auto) 0.9 X10^3/uL (1.3-2.9) L 07/21/21 05:29 [place] # (Auto) 0.8 x10^3/uL (0.3-0.8) 07/21/21 05:29 Eos # (Auto) 0.0 x10^3/uL (0.0-0.2) 07/21/21 05:29 Baso # (Auto) 0.0 X10^3/uL (0.0-0.1) 07/21/21 05:29 Absolute Nucleated RBC 0.0 /100WBC 07/21/21 05:29 Plt Morphology Comment Normal (NORMAL) 07/21/21 05:29 RBC Morphology Abnormal (NORMAL) A 07/21/21 05:29 Dimorphic RBCs Slight 07/20/21 07:42 Hypochromasia 3+ A 07/21/21 05:29 Poikilocytosis Slight A 07/19/21 09:49 Anisocytosis 1+ A 07/21/21 05:29 Microcytosis 2+ A 07/21/21 05:29 Stomatocytes Present 07/19/21 09:49 Sodium 135 mmol/L (136-145) L 07/21/21 05:29 Corrected Sodium 136 mmol/L (136-145) 07/21/21 05:29 Potassium 2.7 mmol/L (3.5-5.1) L* 07/21/21 05:29 Chloride 98 mmol/L (98-107) 07/21/21 05:29 Carbon Dioxide 32.3 mmol/L (21-32) H 07/21/21 05:29 BUN 6 mg/dL (7-18) L 07/21/21 05:29 Creatinine 0.61 mg/dL (0.55-1.02) 07/21/21 05:29 Est GFR (MDRD) Af Amer > 60 (>60) 07/21/21 05:29 Est GFR (MDRD) Non-Af > 60 (>60) 07/21/21 05:29 Glucose 151 mg/dL (65-99) H 07/21/21 05:29 POC Glucose (mg/dL) 117 mg/dL (65-99) H 07/21/21 11:58 Calcium 7.9 mg/dL (8.5-10.1) L 07/21/21 05:29 Corrected Calcium 10.0 mg/dL (8.5-10.1) 07/21/21 05:29 Iron 9 ug/dL (50-175) L 07/21/21 05:29 Transferrin 100 mg/dL (202-364) L 07/21/21 05:29 Ferritin 184 ng/mL (8-252) 07/21/21 05:29 Total Bilirubin 1.00 mg/dL (0.2-1.0) 07/21/21 05:29 AST 15 Units/L (15-37) 07/21/21 05:29 ALT 11 Units/L (12-78) L 07/21/21 05:29 Alkaline Phosphatase 65 Units/L (46-116) 07/21/21 05:29 Total Protein 6.5 g/dL (6.4-8.2) 07/21/21 05:29 Albumin 1.4 g/dL (3.4-5.0) L 07/21/21 05:29 Globulin 5.1 g/dL (2.5-4.5) H 07/21/21 05:29 Albumin/Globulin Ratio 0.3 Ratio (1.1-2.1) L 07/21/21 05:29 Lipase 57 Units/L (73-393) L 07/19/21 09:49 Vitamin B12 1254 pg/mL (193-986) H 07/21/21 05:29 Folate 4.2 ng/mL (>8.6) L 07/21/21 05:29 HCG, Qual Negative <10 mIU/mL 07/19/21 09:49 Specimen Type Clean catch urine 07/19/21 19:09 Urine Color Dark yellow (YELLOW) 07/19/21 19:09 Urine Appearance Clear (CLEAR) 07/19/21 19:09 Urine pH 6.0 (5.0 - 8.0) 07/19/21 19:09 Ur Specific [place] 1.010 (1.000-1.030) 07/19/21 19:09 Urine Protein 3+ (NEGATIVE) 07/19/21 19:09 Urine Glucose (UA) Negative (NEGATIVE) 07/19/21 19:09 Urine Ketones 4+ (NEGATIVE) 07/19/21 19:09 Urine Occult Blood 4+ (NEGATIVE) 07/19/21 19:09 Urine Nitrite Negative (NEGATIVE) 07/19/21 19:09 Urine Bilirubin Negative (NEGATIVE) 07/19/21 19:09 Urine Urobilinogen 1+ (NORMAL) 07/19/21 19:09 Ur Leukocyte Esterase 1+ (NEGATIVE) 07/19/21 19:09 Urine RBC 5-10 /HPF (0-3) A 07/19/21 19:09 Urine WBC 5-10 /HPF (0-5) A 07/19/21 19:09 Ur Squamous Epith Cells Moderate /HPF (NEGATIVE) 07/19/21 19:09 Urine Bacteria Trace /HPF (NEGATIVE) 07/19/21 19:09 Ur Culture Indicated? No/not indicated 07/19/21 19:09 Stool Description 15g 07/21/21 11:10 Stool Description 15g 07/21/21 11:10 Stl Occult Blood (IFOB) Negative (NEGATIVE) 07/21/21 11:10 Stl C. diff Tox B Gene Negative (NEGATIVE) 07/21/21 11:10 Stl C. diff [id number] Presumptive negative (NEGATIVE) 07/21/21 11:10 Cryptosporid parvum Ag Negative (NEGATIVE) 07/21/21 11:10 Giardia lamblia Ag Negative (NEGATIVE) 07/21/21 11:10 SARS CoV-2 RNA Rapid DARIEL Positive (NEGATIVE) A 07/19/21 09:56 Blood Type O POSITIVE 07/19/21 16:45 Antibody Screen Negative 07/19/21 16:45 Crossmatch See Detail 07/19/21 16:45 - Assessment and Plan 1: abdominal wall and pelvic abscess . S/P I&D . anemia . abnormal CT with thick sigmoid wall . positive Covid 19 . for colonoscopy in am . - Problem Patient Problems: Patient Problems Abdominal mass, right lower quadrant (Acute) R19.03 Acute hypokalemia (Acute) E87.6 Anemia (Acute) D64.9
--- NOTE | 2021-07-21 16:12 | PCM.PROG ---
Progress Note Progress Note for Day of Date of Exam: 07/21/21 Subjective Subjective: Pt is a 41 year old female past medical history of DMT2 admitted for Abdominal abscess, Hypokalemia, Symptomatic anemia, COVID-19 positive. Yesterday patient had incision and drainage of abdominal abscess. This morning her abdominal symptoms have improved. Labs/imaging: Wbc 11.3, Hgb 6.2, Plt 290, Na 135, K 2.7, Creatinine 0.61, Glucose 151. Wound culture pending. She has received a total of 1 unit packed red blood cells, hemoglobin low this morning. Will order transfusion of 2 additional units of packed red blood cells and also iron infusion for iron deficiency anemia. She is hypokalemic this morning, continue to replete per protocol. Continue current treatments of: IVF NS+KCL@75ml/h, antibiotics: IV Zosyn, and SSI. Pt will be NPO overnight for colonoscopy in the morning. Otherwise continue with current treatment plan. Serial H/H. General surgery following. Continue to closely monitor and follow up labs/imaging. Past Medical Family Social History Past Med/Fam/Surg Hx: No changes since H&P Allergies: Allergies No Known Drug Allergies Allergy (Verified 07/19/21 09:09) Review of Systems ROS: No change since H&P Vital Signs and I&O's Vital Signs: Temperature 98.5 F Pulse Rate [Apical] 90 Pulse Rate 122 Respiratory Rate 18 Blood Pressure [Left Arm] 91/52 Blood Pressure 110/60 O2 Sat by Pulse Oximetry 100 Intake and Output: Intake & Output 07/18/21 07/19/21 07/20/21 07/21/21 23:59 23:59 23:59 23:59 Intake Total 3900 / 3900 4508 / 4508 2200 / 2200 Output Total 2004 Balance 3900 / 3900 2503 / 2503 2200 / 2200 Physical Exam Oriented: Normal Eyes: Normal Ear: Normal Nose: Normal Throat: Normal Respiratory: Normal Cardiovascular: Normal : Normal Auscultation: Bowel Sounds: Normal Tenderness: RLQ (soft abdomen with moderate tenderness RLQ and suprapubic area .) and Mild Skin: Normal Musculoskeletal: Normal Psychiatric: Normal Mood Description: Calm and Appropriate Affect: Normal Speech Pattern: Clear and Appropriate Laboratory and Diagnostics Result Diagrams: 07/21/21 05:29 07/21/21 15:47 Labs: 07/21/21 11:10 Stool - Final 07/20/21 14:35 Abdomen Wound Gram Stain - Final 07/20/21 14:35 Abdomen Wound Culture - Preliminary 07/20/21 11:12 Abdomen Wound Gram Stain - Final 07/20/21 11:12 Abdomen Wound Culture - Preliminary Laboratory WBC 11.3 X10^3/uL (3.6-10.0) H 07/21/21 05:29 RBC 3.21 X10^6/uL (3.5-5.4) L 07/21/21 05:29 Hgb 6.2 g/dL (12.0-16.0) L* 07/21/21 05:29 Hct 20.0 % (36.0-47.0) L* 07/21/21 05:29 MCV 62.1 fL (80.0-100.0) L 07/21/21 05:29 MCH 19.3 pg (27.0-34.0) L 07/21/21 05:29 MCHC 31.0 g/dL (33.0-35.0) L 07/21/21 05:29 RDW 21.5 % (11.6-16.5) H 07/21/21 05:29 Plt Count 290 X10^3/uL (150.0-450.0) 07/21/21 05:29 Plt Count Comment Adequate (ADEQUATE) 07/21/21 05:29 MPV 7.2 fL (7.4-11.0) L 07/21/21 05:29 Neut % (Auto) 84.8 % (42.0-75.0) H 07/21/21 05:29 Lymph % (Auto) 7.9 % (21.0-51.0) L 07/21/21 05:29 [place] % (Auto) 7.0 % (0.0-13.0) 07/21/21 05:29 Eos % (Auto) 0.1 % (0.9-2.9) L 07/21/21 05:29 Baso % (Auto) 0.2 % (0.2-1.0) 07/21/21 05:29 Neut # (Auto) 9.6 x10^3/uL (2.2-4.8) H 07/21/21 05:29 Lymph # (Auto) 0.9 X10^3/uL (1.3-2.9) L 07/21/21 05:29 [place] # (Auto) 0.8 x10^3/uL (0.3-0.8) 07/21/21 05:29 Eos # (Auto) 0.0 x10^3/uL (0.0-0.2) 07/21/21 05:29 Baso # (Auto) 0.0 X10^3/uL (0.0-0.1) 07/21/21 05:29 Absolute Nucleated RBC 0.0 /100WBC 07/21/21 05:29 Plt Morphology Comment Normal (NORMAL) 07/21/21 05:29 RBC Morphology Abnormal (NORMAL) A 07/21/21 05:29 Dimorphic RBCs Slight 07/20/21 07:42 Hypochromasia 3+ A 07/21/21 05:29 Poikilocytosis Slight A 07/19/21 09:49 Anisocytosis 1+ A 07/21/21 05:29 Microcytosis 2+ A 07/21/21 05:29 Stomatocytes Present 07/19/21 09:49 Sodium 135 mmol/L (136-145) L 07/21/21 05:29 Corrected Sodium 136 mmol/L (136-145) 07/21/21 05:29 Potassium 2.7 mmol/L (3.5-5.1) L* 07/21/21 05:29 Chloride 98 mmol/L (98-107) 07/21/21 05:29 Carbon Dioxide 32.3 mmol/L (21-32) H 07/21/21 05:29 BUN 6 mg/dL (7-18) L 07/21/21 05:29 Creatinine 0.61 mg/dL (0.55-1.02) 07/21/21 05:29 Est GFR (MDRD) Af Amer > 60 (>60) 07/21/21 05:29 Est GFR (MDRD) Non-Af > 60 (>60) 07/21/21 05:29 Glucose 151 mg/dL (65-99) H 07/21/21 05:29 POC Glucose (mg/dL) 117 mg/dL (65-99) H 07/21/21 11:58 Calcium 7.9 mg/dL (8.5-10.1) L 07/21/21 05:29 Corrected Calcium 10.0 mg/dL (8.5-10.1) 07/21/21 05:29 Iron 9 ug/dL (50-175) L 07/21/21 05:29 Transferrin 100 mg/dL (202-364) L 07/21/21 05:29 Ferritin 184 ng/mL (8-252) 07/21/21 05:29 Total Bilirubin 1.00 mg/dL (0.2-1.0) 07/21/21 05:29 AST 15 Units/L (15-37) 07/21/21 05:29 ALT 11 Units/L (12-78) L 07/21/21 05:29 Alkaline Phosphatase 65 Units/L (46-116) 07/21/21 05:29 Total Protein 6.5 g/dL (6.4-8.2) 07/21/21 05:29 Albumin 1.4 g/dL (3.4-5.0) L 07/21/21 05:29 Globulin 5.1 g/dL (2.5-4.5) H 07/21/21 05:29 Albumin/Globulin Ratio 0.3 Ratio (1.1-2.1) L 07/21/21 05:29 Lipase 57 Units/L (73-393) L 07/19/21 09:49 Vitamin B12 1254 pg/mL (193-986) H 07/21/21 05:29 Folate 4.2 ng/mL (>8.6) L 07/21/21 05:29 HCG, Qual Negative <10 mIU/mL 07/19/21 09:49 Specimen Type Clean catch urine 07/19/21 19:09 Urine Color Dark yellow (YELLOW) 07/19/21 19:09 Urine Appearance Clear (CLEAR) 07/19/21 19:09 Urine pH 6.0 (5.0 - 8.0) 07/19/21 19:09 Ur Specific [place] 1.010 (1.000-1.030) 07/19/21 19:09 Urine Protein 3+ (NEGATIVE) 07/19/21 19:09 Urine Glucose (UA) Negative (NEGATIVE) 07/19/21 19:09 Urine Ketones 4+ (NEGATIVE) 07/19/21 19:09 Urine Occult Blood 4+ (NEGATIVE) 07/19/21 19:09 Urine Nitrite Negative (NEGATIVE) 07/19/21 19:09 Urine Bilirubin Negative (NEGATIVE) 07/19/21 19:09 Urine Urobilinogen 1+ (NORMAL) 07/19/21 19:09 Ur Leukocyte Esterase 1+ (NEGATIVE) 07/19/21 19:09 Urine RBC 5-10 /HPF (0-3) A 07/19/21 19:09 Urine WBC 5-10 /HPF (0-5) A 07/19/21 19:09 Ur Squamous Epith Cells Moderate /HPF (NEGATIVE) 07/19/21 19:09 Urine Bacteria Trace /HPF (NEGATIVE) 07/19/21 19:09 Ur Culture Indicated? No/not indicated 07/19/21 19:09 Stool Description 15g 07/21/21 11:10 Stool Description 15g 07/21/21 11:10 Stl Occult Blood (IFOB) Negative (NEGATIVE) 07/21/21 11:10 Stl C. diff Tox B Gene Negative (NEGATIVE) 07/21/21 11:10 Stl C. diff [id number] Presumptive negative (NEGATIVE) 07/21/21 11:10 Cryptosporid parvum Ag Negative (NEGATIVE) 07/21/21 11:10 Giardia lamblia Ag Negative (NEGATIVE) 07/21/21 11:10 SARS CoV-2 RNA Rapid DARIEL Positive (NEGATIVE) A 07/19/21 09:56 Blood Type O POSITIVE 07/19/21 16:45 Antibody Screen Negative 07/19/21 16:45 Crossmatch See Detail 07/19/21 16:45 Plan (1) Abdominal mass, right lower quadrant: Status: Acute Plan: surgery consult IV antibiotics (2) Acute hypokalemia: Status: Acute (3) Symptomatic anemia: Status: Acute (4) COVID-19: Status: Acute (5) Abdominal abscess: Status: Acute Plan: IV antibiotics
[2021-07-21] MEDS: NS 500 ML IV 500 ML IV SCH (16:49)
[2021-07-21 20:03] LABS: HEMATOCRIT 26.1 % (36.0-47.0); HEMOGLOBIN 8.1 g/dL (12.0-16.0)
[2021-07-21] MEDS: ZOFRAN INJ 4 MG VIAL IVP PRN (20:58)
[2021-07-22] MEDS: MORPHINE SULFATE INJ 2 MG INJ IVP PRN ×4 (03:49→20:22)
[2021-07-22] MEDS ORDERED: NS 100 ML IV + SPIKE MINIBAG* 100 ML IV ONE (04:46)
[2021-07-22] MEDS ORDERED: ZOSYN VIAL 3.375 GRAMS IV ONE (04:47)
[2021-07-22] MEDS: ZOSYN VIAL 3.375 GRAMS 3.375 G in NS 100 ML IV + SPIKE MINIBAG* 100 ML IV SCH ×3 (06:35→21:08)
[2021-07-22 06:51] LABS: BASOPHILS % (AUTO) 0.4 % (0.2-1.0); EOSINOPHILS % (AUTO) 0.1 % (0.9-2.9); HEMATOCRIT 24.3 % (36.0-47.0); HEMOGLOBIN 7.7 g/dL (12.0-16.0); LYMPHOCYTES # (AUTO) 0.7 X10^3/uL (1.3-2.9); LYMPHOCYTES % (AUTO) 7.2 % (21.0-51.0); MEAN CORPUSCULAR HEMOGLOBIN 20.3 pg (27.0-34.0); MEAN CORPUSCULAR HGB CONC 31.7 g/dL (33.0-35.0); MEAN PLATELET VOLUME 7.4 fL (7.4-11.0); MONOCYTES # (AUTO) 0.9 x10^3/uL (0.3-0.8); MONOCYTES % (AUTO) 8.8 % (0.0-13.0); NEUTROPHILS # (AUTO) 8.5 x10^3/uL (2.2-4.8); NEUTROPHILS % (AUTO) 83.5 % (42.0-75.0); RED BLOOD COUNT 3.79 X10^6/uL (3.5-5.4); RED CELL DISTRIBUTION WIDTH 22.6 % (11.6-16.5); WHITE BLOOD COUNT 10.2 X10^3/uL (3.6-10.0)
[2021-07-22 07:11] LABS: ALANINE AMINOTRANSFERASE 16 Units/L (12-78); ALBUMIN 1.5 g/dL (3.4-5.0); ALKALINE PHOSPHATASE 80 Units/L (46-116); ASPARTATE AMINO TRANSFERASE 24 Units/L (15-37); BLOOD UREA NITROGEN 5 mg/dL (7-18); CARBON DIOXIDE 27.9 mmol/L (21-32); CHLORIDE 97 mmol/L (98-107); COR NA(FOR HYPERGLY) 134 mmol/L (136-145); CREATININE 0.65 mg/dL (0.55-1.02); MAGNESIUM 2.1 mg/dL (1.7-2.9); SODIUM 133 mmol/L (136-145); TOTAL PROTEIN 6.9 g/dL (6.4-8.2); eGFR NON BLACK RACES > 60 (>60)
[2021-07-22 07:16] LABS: ANISOCYTOSIS 2+; HYPOCHROMASIA 2+; MICROCYTOSIS 2+; PLATELET MORPHOLOGY COMMENT NORMAL (NORMAL)
[2021-07-22] MEDS ORDERED: DIPRIVAN VIAL 40 ML ONE (07:18)
[2021-07-22] MEDS ORDERED: XYLOCAINE 2 % (PLAIN) ONE (07:18)
[2021-07-22] MEDS ORDERED: NS 1,000 ML IV 1,000 ML ONE (07:27)
[2021-07-22] MEDS: K-DUR TAB 20 MEQ PO PRN ×2 (10:48→14:10)
--- NOTE | 2021-07-22 11:27 | PCM.PROG ---
Progress Note - Progress Note for Day of Date of Exam: 07/22/21 - Subjective Subjective: Pt is a 41 year old female, patient of with a past medical history of DMT2. She was admitted for Abdominal wall and pelvic abscess, Hypokalemia, Symptomatic anemia, COVID-19 positive. On 07/20/21, patient had incision and drainage of abdominal abscess. She continues to have moderate, foul smelling, drainage from incision. She has received two units of packed red blood cells since admission. Labs/imaging: Wbc 10.2, hgb 7.7, hct 24.3, sodium 133, potassium 3.2, chloride 97, bun 5, creatinine 0.65, glucose 148, calcium 8.0, total bili 1.30, albumin 1.5. Abdominal wound culture positive for growth of e.coli. Stool culture is pending. She is scheduled for a colonoscopy this morn ing. She is hypokalemic this morning, continue to replete per protocol. Continue current treatments of: D51/2ns at 75 ml/hr, zosyn 3.375g iv tid, duonebs q6h prn, tussionex 5ml po q12h prn, morphine 2mg iv q4h prn, Zofran 4mg iv q8h prn, otbs achs, humulin r sliding scale, Tylenol 650mg po q6h prn. Otherwise continue with current treatment plan. General surgery following. Continue to closely monitor and follow up labs/imaging. TIME SPENT ON CLINICAL ASSESSMENT, REVIEWING LABS AND IMAGING, DECISION MAKING, AND DOCUMENTATION GREATER THAN 45 MINUTES. - Past Medical Family Social History Past Med/Fam/Surg Hx: No changes since H&P Allergies: Allergies No Known Drug Allergies Allergy (Verified 07/19/21 09:09) - Review of Systems ROS: No change since H&P - Vital Signs and I&O's Vital Signs: Temperature 97.6 F Pulse Rate [Apical] 98 Pulse Rate 122 Respiratory Rate 20 Blood Pressure [Left Arm] 103/60 Blood Pressure 110/60 O2 Sat by Pulse Oximetry 98 Intake and Output: Intake & Output 07/19/21 07/20/21 07/21/21 07/22/21 11:59 11:59 11:59 11:59 Intake Total 5358 / 5358 3850 / 3850 5414 / 5414 Output Total 2004 Balance 5358 / 5358 1845 / 1845 5414 / 5414 - Physical Exam Oriented: Normal Eyes: Normal Ear: Normal Nose: Normal Throat: Normal Respiratory: Normal Cardiovascular: Normal : Normal Auscultation: Bowel Sounds: Normal Palpation: Normal Tenderness: RLQ (soft abdomen with moderate tenderness RLQ and suprapubic area .), Mild Skin: Normal Musculoskeletal: Normal Psychiatric: Normal Mood Description: Calm, Appropriate Affect: Normal Speech Pattern: Clear, Appropriate - Laboratory and Diagnostics Result Diagrams: 07/22/21 06:38 07/22/21 06:38 Labs: 07/21/21 11:10 Stool Stool Culture - Preliminary 07/21/21 11:10 Stool - Final 07/20/21 14:35 Abdomen Wound Gram Stain - Final 07/20/21 14:35 Abdomen Wound Culture - Preliminary 07/20/21 11:12 Abdomen Wound Gram Stain - Final 07/20/21 11:12 Abdomen Wound Culture - Preliminary Escherichia Coli Laboratory WBC 10.2 X10^3/uL (3.6-10.0) H 07/22/21 06:38 RBC 3.79 X10^6/uL (3.5-5.4) 07/22/21 06:38 Hgb 7.7 g/dL (12.0-16.0) L 07/22/21 06:38 Hct 24.3 % (36.0-47.0) L 07/22/21 06:38 MCV 64.0 fL (80.0-100.0) L 07/22/21 06:38 MCH 20.3 pg (27.0-34.0) L 07/22/21 06:38 MCHC 31.7 g/dL (33.0-35.0) L 07/22/21 06:38 RDW 22.6 % (11.6-16.5) H 07/22/21 06:38 Plt Count 320 X10^3/uL (150.0-450.0) 07/22/21 06:38 Plt Count Comment Adequate (ADEQUATE) 07/22/21 06:38 MPV 7.4 fL (7.4-11.0) 07/22/21 06:38 Neut % (Auto) 83.5 % (42.0-75.0) H 07/22/21 06:38 Lymph % (Auto) 7.2 % (21.0-51.0) L 07/22/21 06:38 [place] % (Auto) 8.8 % (0.0-13.0) 07/22/21 06:38 Eos % (Auto) 0.1 % (0.9-2.9) L 07/22/21 06:38 Baso % (Auto) 0.4 % (0.2-1.0) 07/22/21 06:38 Neut # (Auto) 8.5 x10^3/uL (2.2-4.8) H 07/22/21 06:38 Lymph # (Auto) 0.7 X10^3/uL (1.3-2.9) L 07/22/21 06:38 [place] # (Auto) 0.9 x10^3/uL (0.3-0.8) H 07/22/21 06:38 Eos # (Auto) 0.0 x10^3/uL (0.0-0.2) 07/22/21 06:38 Baso # (Auto) 0.0 X10^3/uL (0.0-0.1) 07/22/21 06:38 Absolute Nucleated RBC 0.1 /100WBC 07/22/21 06:38 Plt Morphology Comment Normal (NORMAL) 07/22/21 06:38 RBC Morphology Abnormal (NORMAL) A 07/22/21 06:38 Dimorphic RBCs Slight 07/22/21 06:38 Hypochromasia 2+ A 07/22/21 06:38 Poikilocytosis Slight A 07/19/21 09:49 Anisocytosis 2+ A 07/22/21 06:38 Microcytosis 2+ A 07/22/21 06:38 Stomatocytes Present 07/19/21 09:49 Sodium 133 mmol/L (136-145) L 07/22/21 06:38 Corrected Sodium 134 mmol/L (136-145) L 07/22/21 06:38 Potassium 3.2 mmol/L (3.5-5.1) L 07/22/21 06:38 Chloride 97 mmol/L (98-107) L 07/22/21 06:38 Carbon Dioxide 27.9 mmol/L (21-32) 07/22/21 06:38 BUN 5 mg/dL (7-18) L 07/22/21 06:38 Creatinine 0.65 mg/dL (0.55-1.02) 07/22/21 06:38 Est GFR (MDRD) Af Amer > 60 (>60) 07/22/21 06:38 Est GFR (MDRD) Non-Af > 60 (>60) 07/22/21 06:38 Glucose 148 mg/dL (65-99) H 07/22/21 06:38 POC Glucose (mg/dL) 148 mg/dL (65-99) H 07/22/21 05:28 Calcium 8.0 mg/dL (8.5-10.1) L 07/22/21 06:38 Corrected Calcium 10.0 mg/dL (8.5-10.1) 07/22/21 06:38 Magnesium 2.1 mg/dL (1.7-2.9) 07/22/21 06:38 Iron 9 ug/dL (50-175) L 07/21/21 05:29 Transferrin 100 mg/dL (202-364) L 07/21/21 05:29 Ferritin 184 ng/mL (8-252) 07/21/21 05:29 Total Bilirubin 1.30 mg/dL (0.2-1.0) H 07/22/21 06:38 AST 24 Units/L (15-37) 07/22/21 06:38 ALT 16 Units/L (12-78) 07/22/21 06:38 Alkaline Phosphatase 80 Units/L (46-116) 07/22/21 06:38 Total Protein 6.9 g/dL (6.4-8.2) 07/22/21 06:38 Albumin 1.5 g/dL (3.4-5.0) L 07/22/21 06:38 Globulin 5.4 g/dL (2.5-4.5) H 07/22/21 06:38 Albumin/Globulin Ratio 0.3 Ratio (1.1-2.1) L 07/22/21 06:38 Lipase 57 Units/L (73-393) L 07/19/21 09:49 Vitamin B12 1254 pg/mL (193-986) H 07/21/21 05:29 Folate 4.2 ng/mL (>8.6) L 07/21/21 05:29 HCG, Qual Negative <10 mIU/mL 07/19/21 09:49 Specimen Type Clean catch urine 07/19/21 19:09 Urine Color Dark yellow (YELLOW) 07/19/21 19:09 Urine Appearance Clear (CLEAR) 07/19/21 19:09 Urine pH 6.0 (5.0 - 8.0) 07/19/21 19:09 Ur Specific [place] 1.010 (1.000-1.030) 07/19/21 19:09 Urine Protein 3+ (NEGATIVE) 07/19/21 19:09 Urine Glucose (UA) Negative (NEGATIVE) 07/19/21 19:09 Urine Ketones 4+ (NEGATIVE) 07/19/21 19:09 Urine Occult Blood 4+ (NEGATIVE) 07/19/21 19:09 Urine Nitrite Negative (NEGATIVE) 07/19/21 19:09 Urine Bilirubin Negative (NEGATIVE) 07/19/21 19:09 Urine Urobilinogen 1+ (NORMAL) 07/19/21 19:09 Ur Leukocyte Esterase 1+ (NEGATIVE) 07/19/21 19:09 Urine RBC 5-10 /HPF (0-3) A 07/19/21 19:09 Urine WBC 5-10 /HPF (0-5) A 07/19/21 19:09 Ur Squamous Epith Cells Moderate /HPF (NEGATIVE) 07/19/21 19:09 Urine Bacteria Trace /HPF (NEGATIVE) 07/19/21 19:09 Ur Culture Indicated? No/not indicated 07/19/21 19:09 Stool Description 15g 07/21/21 11:10 Stool Description 15g 07/21/21 11:10 Stl Occult Blood (IFOB) Negative (NEGATIVE) 07/21/21 11:10 Stl C. diff Tox B Gene Negative (NEGATIVE) 07/21/21 11:10 Stl C. diff [id number] Presumptive negative (NEGATIVE) 07/21/21 11:10 Cryptosporid parvum Ag Negative (NEGATIVE) 07/21/21 11:10 Giardia lamblia Ag Negative (NEGATIVE) 07/21/21 11:10 SARS CoV-2 RNA Rapid DARIEL Positive (NEGATIVE) A 07/19/21 09:56 Tissue Pathology To follow 07/22/21 07:41 Blood Type O POSITIVE 07/19/21 16:45 Antibody Screen Negative 07/19/21 16:45 Crossmatch See Detail 07/19/21 16:45 - Plan (1) Abdominal mass, right lower quadrant Status: Acute Plan: surgery consult, continue IV antibiotics, IV fluids, pain management, otbs achs, ssi. (2) Symptomatic anemia Status: Acute (3) Acute hypokalemia Status: Acute (4) COVID-19 Status: Acute (5) Diabetes mellitus Status: Chronic Qualifiers: Diabetes mellitus type: type 2 Diabetes mellitus usp insulin use: with usp use Diabetes mellitus complication status: with hyperglycemia Qualified Code(s): E11.65 - Type 2 diabetes mellitus with hyperglycemia; Z79.4 - assisted (current) use of insulin
[2021-07-22] MEDS: D5 1/2 NS 1,000 ML 1,000 ML IV SCH (12:14)
[2021-07-22] MEDS: NS 500 ML IV 500 ML IV SCH (15:55)
[2021-07-22] MEDS: GOLYTELY or GAVILYTE or Equivalent PO SCH (15:56)
[2021-07-22 18:43] LABS: HEMATOCRIT 24.8 % (36.0-47.0); HEMOGLOBIN 7.7 g/dL (12.0-16.0)
[2021-07-23] MEDS: D5 1/2 NS 1,000 ML 1,000 ML IV SCH ×3 (01:59→15:19)
[2021-07-23] MEDS: MORPHINE SULFATE INJ 2 MG INJ IVP PRN ×4 (03:30→23:45)
[2021-07-23] MEDS: ZOSYN VIAL 3.375 GRAMS 3.375 G in NS 100 ML IV + SPIKE MINIBAG* 100 ML IV SCH ×3 (05:30→21:45)
[2021-07-23 06:17] LABS: BASOPHILS % (AUTO) 0.4 % (0.2-1.0); LYMPHOCYTES # (AUTO) 0.8 X10^3/uL (1.3-2.9); MONOCYTES # (AUTO) 0.6 x10^3/uL (0.3-0.8); NEUTROPHILS % (AUTO) 77.9 % (42.0-75.0)
[2021-07-23 06:28] LABS: EOSINOPHILS % (AUTO) 0.5 % (0.9-2.9); HEMATOCRIT 21.1 % (36.0-47.0); LYMPHOCYTES % (AUTO) 12.3 % (21.0-51.0); MEAN CORPUSCULAR HEMOGLOBIN 20.6 pg (27.0-34.0); MEAN CORPUSCULAR VOLUME 64.5 fL (80.0-100.0); MEAN PLATELET VOLUME 7.5 fL (7.4-11.0); MONOCYTES % (AUTO) 8.9 % (0.0-13.0); NEUTROPHILS # (AUTO) 4.9 x10^3/uL (2.2-4.8); RED BLOOD COUNT 3.27 X10^6/uL (3.5-5.4); RED CELL DISTRIBUTION WIDTH 22.1 % (11.6-16.5); WHITE BLOOD COUNT 6.3 X10^3/uL (3.6-10.0)
[2021-07-23 06:44] LABS: ALANINE AMINOTRANSFERASE 17 Units/L (12-78); ALBUMIN 1.3 g/dL (3.4-5.0); ALKALINE PHOSPHATASE 79 Units/L (46-116); ASPARTATE AMINO TRANSFERASE 20 Units/L (15-37); BLOOD UREA NITROGEN 2 mg/dL (7-18); CARBON DIOXIDE 30.1 mmol/L (21-32); CHLORIDE 99 mmol/L (98-107); COR CA(FOR HYPOALB) 10.2 mg/dL (8.5-10.1); COR NA(FOR HYPERGLY) 134 mmol/L (136-145); SODIUM 134 mmol/L (136-145); TOTAL PROTEIN 6.3 g/dL (6.4-8.2); eGFR NON BLACK RACES > 60 (>60)
[2021-07-23 07:15] LABS: HEMOGLOBIN 6.7 g/dL (12.0-16.0)
[2021-07-23 07:44] LABS: ANISOCYTOSIS 2+; HYPOCHROMASIA 2+; MICROCYTOSIS 2+; PLATELET MORPHOLOGY COMMENT NORMAL (NORMAL)
[2021-07-23] MEDS: K-DUR TAB 20 MEQ PO PRN (09:12)
[2021-07-23] MEDS ORDERED: NS 500 ML IV 500 ML IV ONE (11:35)
--- NOTE | 2021-07-23 11:52 | PCM.PROG ---
Progress Note - Progress Note for Day of Date of Exam: 07/23/21 - Subjective Subjective: Pt is a 41 year old female, patient of with a past medical history of DMT2. She was admitted for Abdominal wall and pelvic abscess, Hypokalemia, Symptomatic anemia, COVID-19 positive. On 07/20/21, patient had incision and drainage of abdominal abscess. She had a colonoscopy yesterday. A large abdominal mass was found. plans for bowel resection on Sunday. She has received two units of packed red blood cells since admission. She continues with complaints of weakness and abdominal tenderness today. Vitals this morning are: 97.9-80-20-99%-108/64. Labs/imaging: Wbc 6.3, rbc 3.27, hgb 6.7, hct 21.1, sodium 134, potassium 3.4, bun 2, creatinine 0.50, glucose 118, calcium 8.0, total protein 6.3, albumin 1.3. Abdominal wound culture positive for growth of e.coli. Stool culture is pending. She is hypokalemic this morning, continue to replete per protocol. Continue current treatments of: D51/2ns at 75 ml/hr, zosyn 3.375g iv tid, duonebs q6h prn, tussionex 5ml po q12h prn, morphine 2mg iv q4h prn, Zofran 4mg iv q8h prn, otbs achs, humulin r sliding scale, Tylenol 650mg po q6h prn. We will add Albumin 25% iv daily. We will transfuse two units of packed red blood cells today. Otherwise continue with current treatment plan. General surgery following. Continue to closely monitor and follow up labs/imaging. TIME SPENT ON CLINICAL ASSESSMENT, REVIEWING LABS AND IMAGING, DECISION MAKING, AND DOCUMENTATION GREATER THAN 45 MINUTES. - Past Medical Family Social History Past Med/Fam/Surg Hx: No changes since H&P Allergies: Allergies No Known Drug Allergies Allergy (Verified 07/19/21 09:09) - Review of Systems ROS: No change since H&P - Vital Signs and I&O's Vital Signs: Temperature 97.9 F Pulse Rate [Apical] 80 Pulse Rate 122 Respiratory Rate 20 Blood Pressure [Left Arm] 108/64 Blood Pressure 110/60 O2 Sat by Pulse Oximetry 99 Intake and Output: Intake & Output 07/20/21 07/21/21 07/22/21 07/23/21 11:59 11:59 11:59 11:59 Intake Total 5358 / 5358 3850 / 3850 5414 / 5414 1629 / 1629 Output Total 2004 315 / 315 Balance 5358 / 5358 1845 / 1845 5414 / 5414 1314 / 1314 - Physical Exam Oriented: Normal Eyes: Normal Ear: Normal Nose: Normal Throat: Normal Respiratory: Normal Cardiovascular: Normal : Normal Auscultation: Bowel Sounds: Normal Palpation: Normal Tenderness: RLQ (soft abdomen with moderate tenderness RLQ and suprapubic area .), Mild Skin: Normal Musculoskeletal: Normal Psychiatric: Normal Mood Description: Calm, Appropriate Affect: Normal Speech Pattern: Clear, Appropriate - Laboratory and Diagnostics Result Diagrams: 07/23/21 05:20 07/23/21 05:20 Labs: 07/21/21 11:10 Stool Stool Culture - Preliminary 07/21/21 11:10 Stool - Final 07/20/21 14:35 Abdomen Wound Gram Stain - Final 07/20/21 14:35 Abdomen Wound Culture - Preliminary 07/20/21 11:12 Abdomen Wound Gram Stain - Final 07/20/21 11:12 Abdomen Wound Culture - Preliminary Escherichia Coli Laboratory WBC 6.3 X10^3/uL (3.6-10.0) 07/23/21 05:20 RBC 3.27 X10^6/uL (3.5-5.4) L 07/23/21 05:20 Hgb 6.7 g/dL (12.0-16.0) L* 07/23/21 05:20 Hct 21.1 % (36.0-47.0) L 07/23/21 05:20 MCV 64.5 fL (80.0-100.0) L 07/23/21 05:20 MCH 20.6 pg (27.0-34.0) L 07/23/21 05:20 MCHC 32.0 g/dL (33.0-35.0) L 07/23/21 05:20 RDW 22.1 % (11.6-16.5) H 07/23/21 05:20 Plt Count 264 X10^3/uL (150.0-450.0) 07/23/21 05:20 Plt Count Comment Adequate (ADEQUATE) 07/23/21 05:20 MPV 7.5 fL (7.4-11.0) 07/23/21 05:20 Neut % (Auto) 77.9 % (42.0-75.0) H 07/23/21 05:20 Lymph % (Auto) 12.3 % (21.0-51.0) L 07/23/21 05:20 [place] % (Auto) 8.9 % (0.0-13.0) 07/23/21 05:20 Eos % (Auto) 0.5 % (0.9-2.9) L 07/23/21 05:20 Baso % (Auto) 0.4 % (0.2-1.0) 07/23/21 05:20 Neut # (Auto) 4.9 x10^3/uL (2.2-4.8) H 07/23/21 05:20 Lymph # (Auto) 0.8 X10^3/uL (1.3-2.9) L 07/23/21 05:20 [place] # (Auto) 0.6 x10^3/uL (0.3-0.8) 07/23/21 05:20 Eos # (Auto) 0.0 x10^3/uL (0.0-0.2) 07/23/21 05:20 Baso # (Auto) 0.0 X10^3/uL (0.0-0.1) 07/23/21 05:20 Absolute Nucleated RBC 0.1 /100WBC 07/23/21 05:20 Plt Morphology Comment Normal (NORMAL) 07/23/21 05:20 RBC Morphology Abnormal (NORMAL) A 07/23/21 05:20 Dimorphic RBCs Slight 07/22/21 06:38 Hypochromasia 2+ A 07/23/21 05:20 Poikilocytosis Slight A 07/19/21 09:49 Anisocytosis 2+ A 07/23/21 05:20 Microcytosis 2+ A 07/23/21 05:20 Stomatocytes Present 07/19/21 09:49 Sodium 134 mmol/L (136-145) L 07/23/21 05:20 Corrected Sodium 134 mmol/L (136-145) L 07/23/21 05:20 Potassium 3.4 mmol/L (3.5-5.1) L 07/23/21 05:20 Chloride 99 mmol/L (98-107) 07/23/21 05:20 Carbon Dioxide 30.1 mmol/L (21-32) 07/23/21 05:20 BUN 2 mg/dL (7-18) L 07/23/21 05:20 Creatinine 0.50 mg/dL (0.55-1.02) L 07/23/21 05:20 Est GFR (MDRD) Af Amer > 60 (>60) 07/23/21 05:20 Est GFR (MDRD) Non-Af > 60 (>60) 07/23/21 05:20 Glucose 118 mg/dL (65-99) H 07/23/21 05:20 POC Glucose (mg/dL) 108 mg/dL (65-99) H 07/23/21 11:29 Calcium 8.0 mg/dL (8.5-10.1) L 07/23/21 05:20 Corrected Calcium 10.2 mg/dL (8.5-10.1) H 07/23/21 05:20 Magnesium 2.1 mg/dL (1.7-2.9) 07/22/21 06:38 Iron 9 ug/dL (50-175) L 07/21/21 05:29 Transferrin 100 mg/dL (202-364) L 07/21/21 05:29 Ferritin 184 ng/mL (8-252) 07/21/21 05:29 Total Bilirubin 1.00 mg/dL (0.2-1.0) 07/23/21 05:20 AST 20 Units/L (15-37) 07/23/21 05:20 ALT 17 Units/L (12-78) 07/23/21 05:20 Alkaline Phosphatase 79 Units/L (46-116) 07/23/21 05:20 Total Protein 6.3 g/dL (6.4-8.2) L 07/23/21 05:20 Albumin 1.3 g/dL (3.4-5.0) L 07/23/21 05:20 Globulin 5.0 g/dL (2.5-4.5) H 07/23/21 05:20 Albumin/Globulin Ratio 0.3 Ratio (1.1-2.1) L 07/23/21 05:20 Lipase 57 Units/L (73-393) L 07/19/21 09:49 Vitamin B12 1254 pg/mL (193-986) H 07/21/21 05:29 Folate 4.2 ng/mL (>8.6) L 07/21/21 05:29 HCG, Qual Negative <10 mIU/mL 07/19/21 09:49 Specimen Type Clean catch urine 07/19/21 19:09 Urine Color Dark yellow (YELLOW) 07/19/21 19:09 Urine Appearance Clear (CLEAR) 07/19/21 19:09 Urine pH 6.0 (5.0 - 8.0) 07/19/21 19:09 Ur Specific [place] 1.010 (1.000-1.030) 07/19/21 19:09 Urine Protein 3+ (NEGATIVE) 07/19/21 19:09 Urine Glucose (UA) Negative (NEGATIVE) 07/19/21 19:09 Urine Ketones 4+ (NEGATIVE) 07/19/21 19:09 Urine Occult Blood 4+ (NEGATIVE) 07/19/21 19:09 Urine Nitrite Negative (NEGATIVE) 07/19/21 19:09 Urine Bilirubin Negative (NEGATIVE) 07/19/21 19:09 Urine Urobilinogen 1+ (NORMAL) 07/19/21 19:09 Ur Leukocyte Esterase 1+ (NEGATIVE) 07/19/21 19:09 Urine RBC 5-10 /HPF (0-3) A 07/19/21 19:09 Urine WBC 5-10 /HPF (0-5) A 07/19/21 19:09 Ur Squamous Epith Cells Moderate /HPF (NEGATIVE) 07/19/21 19:09 Urine Bacteria Trace /HPF (NEGATIVE) 07/19/21 19:09 Ur Culture Indicated? No/not indicated 07/19/21 19:09 Stool Description 15g 07/21/21 11:10 Stool Description 15g 07/21/21 11:10 Stl Occult Blood (IFOB) Negative (NEGATIVE) 07/21/21 11:10 Stl C. diff Tox B Gene Negative (NEGATIVE) 07/21/21 11:10 Stl C. diff [id number] Presumptive negative (NEGATIVE) 07/21/21 11:10 Cryptosporid parvum Ag Negative (NEGATIVE) 07/21/21 11:10 Giardia lamblia Ag Negative (NEGATIVE) 07/21/21 11:10 SARS CoV-2 RNA Rapid DARIEL Positive (NEGATIVE) A 07/19/21 09:56 Tissue Pathology To follow 07/22/21 07:41 Blood Type O POSITIVE 07/19/21 16:45 Antibody Screen Negative 07/19/21 16:45 Crossmatch See Detail 07/19/21 16:45 - Plan (1) Abdominal mass, right lower quadrant Status: Acute Plan: surgery consult, continue IV antibiotics, IV fluids, pain management, otbs achs, ssi. 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
[2021-07-23] MEDS: ALBUMIN HUMAN 25%- 100 ML 100 ML IV SCH (12:52)
[2021-07-23] MEDS: NS 500 ML IV 500 ML IV SCH (15:26)
[2021-07-23 17:56] LABS: HEMATOCRIT 25.4 % (36.0-47.0)
[2021-07-23 18:05] LABS: HEMOGLOBIN 7.9 g/dL (12.0-16.0)
[2021-07-24] MEDS: D5 1/2 NS 1,000 ML 1,000 ML IV SCH ×2 (02:48→15:23)
[2021-07-24] MEDS: MORPHINE SULFATE INJ 2 MG INJ IVP PRN ×3 (04:30→18:16)
[2021-07-24] MEDS: ZOSYN VIAL 3.375 GRAMS 3.375 G in NS 100 ML IV + SPIKE MINIBAG* 100 ML IV SCH ×3 (05:14→21:30)
[2021-07-24 05:38] LABS: BASOPHILS % (AUTO) 0.3 % (0.2-1.0); EOSINOPHILS # (AUTO) 0.1 x10^3/uL (0.0-0.2); EOSINOPHILS % (AUTO) 0.8 % (0.9-2.9); HEMATOCRIT 23.3 % (36.0-47.0); HEMOGLOBIN 7.5 g/dL (12.0-16.0); LYMPHOCYTES # (AUTO) 0.9 X10^3/uL (1.3-2.9); LYMPHOCYTES % (AUTO) 13.2 % (21.0-51.0); MEAN CORPUSCULAR HEMOGLOBIN 21.3 pg (27.0-34.0); MEAN CORPUSCULAR HGB CONC 32.1 g/dL (33.0-35.0); MEAN CORPUSCULAR VOLUME 66.4 fL (80.0-100.0); MEAN PLATELET VOLUME 7.7 fL (7.4-11.0); MONOCYTES # (AUTO) 0.6 x10^3/uL (0.3-0.8); MONOCYTES % (AUTO) 9.1 % (0.0-13.0); NEUTROPHILS % (AUTO) 76.6 % (42.0-75.0); RED BLOOD COUNT 3.51 X10^6/uL (3.5-5.4); RED CELL DISTRIBUTION WIDTH 23.8 % (11.6-16.5); WHITE BLOOD COUNT 6.5 X10^3/uL (3.6-10.0)
[2021-07-24 05:52] LABS: ALANINE AMINOTRANSFERASE 12 Units/L (12-78); ALBUMIN 1.5 g/dL (3.4-5.0); ALKALINE PHOSPHATASE 69 Units/L (46-116); ASPARTATE AMINO TRANSFERASE 18 Units/L (15-37); BLOOD UREA NITROGEN 4 mg/dL (7-18); CALCIUM 7.9 mg/dL (8.5-10.1); CARBON DIOXIDE 28.9 mmol/L (21-32); CHLORIDE 99 mmol/L (98-107); COR CA(FOR HYPOALB) 9.9 mg/dL (8.5-10.1); COR NA(FOR HYPERGLY) 134 mmol/L (136-145); CREATININE 0.46 mg/dL (0.55-1.02); SODIUM 134 mmol/L (136-145); TOTAL PROTEIN 6.2 g/dL (6.4-8.2); eGFR NON BLACK RACES > 60 (>60)
[2021-07-24 06:55] LABS: ANISOCYTOSIS 2+; HYPOCHROMASIA 2+; MICROCYTOSIS 1+; PLATELET MORPHOLOGY COMMENT NORMAL (NORMAL); TARGET CELLS PRESENT
[2021-07-24 06:56] LABS: STOMATOCYTES PRESENT
--- NOTE | 2021-07-24 08:52 | PCM.PROG ---
Progress Note - Progress Note for Day of Date of Exam: 07/24/21 - Subjective Subjective: Pt is a 41 year old female, patient of with a past medical history of DMT2. She was admitted for Abdominal wall and pelvic abscess, Hypokalemia, Symptomatic anemia, COVID-19 positive. On 07/20/21, patient had incision and drainage of abdominal abscess. She had a colonoscopy on Sunday. A large abdominal mass was found. plans for bowel resection on Sunday. She has received three units of packed red blood cells since admission. She continues with complaints of weakness and abdominal tenderness today. Vitals this morning are: 98.3-72-20-94%-111/64. Labs/imaging: wbc 6.5, hgb 7.5, hct 23.3, sodium 134, potassium 3.3, bun 4, creatinine 0.46, glucose 117, calcium 7.9, total protein 6.2, albumin 1.5. Abdominal wound culture positive for growth of e.coli. Stool culture is pending. She is hypokalemic this morning, continue to replete per protocol. Continue current treatments of: D51/2ns at 75 ml/hr, zosyn 3.375g iv tid, duonebs q6h prn, tussionex 5ml po q12h prn, morphine 2mg iv q4h prn, Zofran 4mg iv q8h prn, otbs achs, humulin r sliding scale, Tylenol 650mg po q6h prn. We will add Albumin 25% iv daily. We will continue with current treatment plan today. General surgery following. Continue to closely monitor and follow up labs/imaging. TIME SPENT ON CLINICAL ASSESSMENT, REVIEWING LABS AND IMAGING, DECISION MAKING, AND DOCUMENTATION GREATER THAN 45 MINUTES. - Past Medical Family Social History Past Med/Fam/Surg Hx: No changes since H&P Allergies: Allergies No Known Drug Allergies Allergy (Verified 07/19/21 09:09) - Review of Systems ROS: No change since H&P - Vital Signs and I&O's Vital Signs: Temperature 98.3 F Pulse Rate [Apical] 72 Pulse Rate 86 Respiratory Rate 18 Blood Pressure [Left Arm] 111/64 Blood Pressure 110/60 O2 Sat by Pulse Oximetry 94 Intake and Output: Intake & Output 07/21/21 07/22/21 07/23/21 07/24/21 11:59 11:59 11:59 11:59 Intake Total 3850 / 3850 5414 / 5414 1629 / 1629 2385 / 2385 Output Total 2004 315 / 315 215 / 215 Balance 1845 / 1845 5414 / 5414 1314 / 1314 2170 / 2170 - Physical Exam Oriented: Normal Eyes: Normal Ear: Normal Nose: Normal Throat: Normal Respiratory: Normal Cardiovascular: Normal : Normal Auscultation: Bowel Sounds: Normal Palpation: Normal Tenderness: RLQ (soft abdomen with moderate tenderness RLQ and suprapubic area .), Mild Skin: Normal Musculoskeletal: Normal Psychiatric: Normal Mood Description: Calm, Appropriate Affect: Normal Speech Pattern: Clear, Appropriate - Laboratory and Diagnostics Result Diagrams: 07/24/21 04:45 07/24/21 04:45 Labs: 07/21/21 11:10 Stool Stool Culture - Preliminary 07/21/21 11:10 Stool - Final 07/20/21 14:35 Abdomen Wound Gram Stain - Final 07/20/21 14:35 Abdomen Wound Culture - Preliminary 07/20/21 11:12 Abdomen Wound Gram Stain - Final 07/20/21 11:12 Abdomen Wound Culture - Preliminary Escherichia Coli Laboratory WBC 6.5 X10^3/uL (3.6-10.0) 07/24/21 04:45 RBC 3.51 X10^6/uL (3.5-5.4) 07/24/21 04:45 Hgb 7.5 g/dL (12.0-16.0) L 07/24/21 04:45 Hct 23.3 % (36.0-47.0) L 07/24/21 04:45 MCV 66.4 fL (80.0-100.0) L 07/24/21 04:45 MCH 21.3 pg (27.0-34.0) L 07/24/21 04:45 MCHC 32.1 g/dL (33.0-35.0) L 07/24/21 04:45 RDW 23.8 % (11.6-16.5) H 07/24/21 04:45 Plt Count 278 X10^3/uL (150.0-450.0) 07/24/21 04:45 Plt Count Comment Adequate (ADEQUATE) 07/24/21 04:45 MPV 7.7 fL (7.4-11.0) 07/24/21 04:45 Neut % (Auto) 76.6 % (42.0-75.0) H 07/24/21 04:45 Lymph % (Auto) 13.2 % (21.0-51.0) L 07/24/21 04:45 [place] % (Auto) 9.1 % (0.0-13.0) 07/24/21 04:45 Eos % (Auto) 0.8 % (0.9-2.9) L 07/24/21 04:45 Baso % (Auto) 0.3 % (0.2-1.0) 07/24/21 04:45 Neut # (Auto) 5.0 x10^3/uL (2.2-4.8) H 07/24/21 04:45 Lymph # (Auto) 0.9 X10^3/uL (1.3-2.9) L 07/24/21 04:45 [place] # (Auto) 0.6 x10^3/uL (0.3-0.8) 07/24/21 04:45 Eos # (Auto) 0.1 x10^3/uL (0.0-0.2) 07/24/21 04:45 Baso # (Auto) 0.0 X10^3/uL (0.0-0.1) 07/24/21 04:45 Absolute Nucleated RBC 0.0 /100WBC 07/24/21 04:45 Plt Morphology Comment Normal (NORMAL) 07/24/21 04:45 RBC Morphology Abnormal (NORMAL) A 07/24/21 04:45 Dimorphic RBCs Slight 07/22/21 06:38 Hypochromasia 2+ A 07/24/21 04:45 Poikilocytosis Slight A 07/19/21 09:49 Anisocytosis 2+ A 07/24/21 04:45 Microcytosis 1+ A 07/24/21 04:45 Target Cells Present 07/24/21 04:45 Stomatocytes Present 07/24/21 04:45 Sodium 134 mmol/L (136-145) L 07/24/21 04:45 Corrected Sodium 134 mmol/L (136-145) L 07/24/21 04:45 Potassium 3.3 mmol/L (3.5-5.1) L 07/24/21 04:45 Chloride 99 mmol/L (98-107) 07/24/21 04:45 Carbon Dioxide 28.9 mmol/L (21-32) 07/24/21 04:45 BUN 4 mg/dL (7-18) L 07/24/21 04:45 Creatinine 0.46 mg/dL (0.55-1.02) L 07/24/21 04:45 Est GFR (MDRD) Af Amer > 60 (>60) 07/24/21 04:45 Est GFR (MDRD) Non-Af > 60 (>60) 07/24/21 04:45 Glucose 117 mg/dL (65-99) H 07/24/21 04:45 POC Glucose (mg/dL) 120 mg/dL (65-99) H 07/24/21 04:47 Calcium 7.9 mg/dL (8.5-10.1) L 07/24/21 04:45 Corrected Calcium 9.9 mg/dL (8.5-10.1) 07/24/21 04:45 Magnesium 2.1 mg/dL (1.7-2.9) 07/24/21 05:49 Iron 9 ug/dL (50-175) L 07/21/21 05:29 Transferrin 100 mg/dL (202-364) L 07/21/21 05:29 Ferritin 184 ng/mL (8-252) 07/21/21 05:29 Total Bilirubin 0.90 mg/dL (0.2-1.0) 07/24/21 04:45 AST 18 Units/L (15-37) 07/24/21 04:45 ALT 12 Units/L (12-78) 07/24/21 04:45 Alkaline Phosphatase 69 Units/L (46-116) 07/24/21 04:45 Total Protein 6.2 g/dL (6.4-8.2) L 07/24/21 04:45 Albumin 1.5 g/dL (3.4-5.0) L 07/24/21 04:45 Globulin 4.7 g/dL (2.5-4.5) H 07/24/21 04:45 Albumin/Globulin Ratio 0.3 Ratio (1.1-2.1) L 07/24/21 04:45 Lipase 57 Units/L (73-393) L 07/19/21 09:49 Vitamin B12 1254 pg/mL (193-986) H 07/21/21 05:29 Folate 4.2 ng/mL (>8.6) L 07/21/21 05:29 HCG, Qual Negative <10 mIU/mL 07/19/21 09:49 Specimen Type Clean catch urine 07/19/21 19:09 Urine Color Dark yellow (YELLOW) 07/19/21 19:09 Urine Appearance Clear (CLEAR) 07/19/21 19:09 Urine pH 6.0 (5.0 - 8.0) 07/19/21 19:09 Ur Specific [place] 1.010 (1.000-1.030) 07/19/21 19:09 Urine Protein 3+ (NEGATIVE) 07/19/21 19:09 Urine Glucose (UA) Negative (NEGATIVE) 07/19/21 19:09 Urine Ketones 4+ (NEGATIVE) 07/19/21 19:09 Urine Occult Blood 4+ (NEGATIVE) 07/19/21 19:09 Urine Nitrite Negative (NEGATIVE) 07/19/21 19:09 Urine Bilirubin Negative (NEGATIVE) 07/19/21 19:09 Urine Urobilinogen 1+ (NORMAL) 07/19/21 19:09 Ur Leukocyte Esterase 1+ (NEGATIVE) 07/19/21 19:09 Urine RBC 5-10 /HPF (0-3) A 07/19/21 19:09 Urine WBC 5-10 /HPF (0-5) A 07/19/21 19:09 Ur Squamous Epith Cells Moderate /HPF (NEGATIVE) 07/19/21 19:09 Urine Bacteria Trace /HPF (NEGATIVE) 07/19/21 19:09 Ur Culture Indicated? No/not indicated 07/19/21 19:09 Stool Description 15g 07/21/21 11:10 Stool Description 15g 07/21/21 11:10 Stl Occult Blood (IFOB) Negative (NEGATIVE) 07/21/21 11:10 Stl C. diff Tox B Gene Negative (NEGATIVE) 07/21/21 11:10 Stl C. diff [id number] Presumptive negative (NEGATIVE) 07/21/21 11:10 Cryptosporid parvum Ag Negative (NEGATIVE) 07/21/21 11:10 Giardia lamblia Ag Negative (NEGATIVE) 07/21/21 11:10 SARS CoV-2 RNA Rapid DARIEL Positive (NEGATIVE) A 07/19/21 09:56 Tissue Pathology To follow 07/22/21 07:41 Blood Type O POSITIVE 07/23/21 10:37 Antibody Screen Negative 07/23/21 10:37 Crossmatch See Detail 07/23/21 10:37 - Plan (1) Abdominal mass, right lower quadrant Status: Acute Plan: surgery consult, continue IV antibiotics, IV fluids, pain management, otbs achs, ssi. 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
[2021-07-24] MEDS ORDERED: CITROMA PO ONE (10:03)
[2021-07-24] MEDS: ALBUMIN HUMAN 25%- 100 ML 100 ML IV SCH (10:06)
--- NOTE | 2021-07-24 10:49 | DR.PROGNOT ---
Hospital Progress Notes - Progress Note for Day of: Progress Note Date: 07/24/21 - Chief Complaint Chief Complaint: feeling better today .. less abdominal pain . bowel fistula is draining moderate amount . having transfusion today . CEA 72 ,. Hgb 7.5.. normal LFTs . afebrile .. - Past Medical Family Social History Past Med/Fam/Surg Hx: No changes since H&P Allergies: Allergies No Known Drug Allergies Allergy (Verified 07/19/21 09:09) - Review Of Systems ROS: No change since H&P - Vital Signs Vital Signs: Temperature 98.2 F Pulse Rate [Apical] 75 Pulse Rate 86 Respiratory Rate 20 Blood Pressure [Left Arm] 117/63 Blood Pressure 110/60 O2 Sat by Pulse Oximetry 96 - Physical Exam Oriented: Normal Eyes: Normal Ear: Normal Nose: Normal Throat: Normal Respiratory: Normal Cardiovascular: Normal : Normal GI:Auscultation: Normal GI:Palpation: Normal GI: Tenderness: RLQ (soft abdomen with moderate tenderness RLQ and suprapubic area .), Mild, Other (flst abdomen with mild erythema RLQ and supra pubic area .. fistula site is draining stool ) Skin: Normal Musculoskeletal: Normal Psychiatric: Normal Mood Description: Calm, Appropriate Affect: Normal Speech Pattern: Clear, Appropriate - Laboratory and Diagnostics Result Diagrams: 07/24/21 04:45 07/24/21 04:45 Labs: 07/21/21 11:10 Stool Stool Culture - Final 07/21/21 11:10 Stool - Final 07/20/21 14:35 Abdomen Wound Gram Stain - Final 07/20/21 14:35 Abdomen Wound Culture - Preliminary 07/20/21 11:12 Abdomen Wound Gram Stain - Final 07/20/21 11:12 Abdomen Wound Culture - Preliminary Escherichia Coli Laboratory WBC 6.5 X10^3/uL (3.6-10.0) 07/24/21 04:45 RBC 3.51 X10^6/uL (3.5-5.4) 07/24/21 04:45 Hgb 7.5 g/dL (12.0-16.0) L 07/24/21 04:45 Hct 23.3 % (36.0-47.0) L 07/24/21 04:45 MCV 66.4 fL (80.0-100.0) L 07/24/21 04:45 MCH 21.3 pg (27.0-34.0) L 07/24/21 04:45 MCHC 32.1 g/dL (33.0-35.0) L 07/24/21 04:45 RDW 23.8 % (11.6-16.5) H 07/24/21 04:45 Plt Count 278 X10^3/uL (150.0-450.0) 07/24/21 04:45 Plt Count Comment Adequate (ADEQUATE) 07/24/21 04:45 MPV 7.7 fL (7.4-11.0) 07/24/21 04:45 Neut % (Auto) 76.6 % (42.0-75.0) H 07/24/21 04:45 Lymph % (Auto) 13.2 % (21.0-51.0) L 07/24/21 04:45 [place] % (Auto) 9.1 % (0.0-13.0) 07/24/21 04:45 Eos % (Auto) 0.8 % (0.9-2.9) L 07/24/21 04:45 Baso % (Auto) 0.3 % (0.2-1.0) 07/24/21 04:45 Neut # (Auto) 5.0 x10^3/uL (2.2-4.8) H 07/24/21 04:45 Lymph # (Auto) 0.9 X10^3/uL (1.3-2.9) L 07/24/21 04:45 [place] # (Auto) 0.6 x10^3/uL (0.3-0.8) 07/24/21 04:45 Eos # (Auto) 0.1 x10^3/uL (0.0-0.2) 07/24/21 04:45 Baso # (Auto) 0.0 X10^3/uL (0.0-0.1) 07/24/21 04:45 Absolute Nucleated RBC 0.0 /100WBC 07/24/21 04:45 Plt Morphology Comment Normal (NORMAL) 07/24/21 04:45 RBC Morphology Abnormal (NORMAL) A 07/24/21 04:45 Dimorphic RBCs Slight 07/22/21 06:38 Hypochromasia 2+ A 07/24/21 04:45 Poikilocytosis Slight A 07/19/21 09:49 Anisocytosis 2+ A 07/24/21 04:45 Microcytosis 1+ A 07/24/21 04:45 Target Cells Present 07/24/21 04:45 Stomatocytes Present 07/24/21 04:45 Sodium 134 mmol/L (136-145) L 07/24/21 04:45 Corrected Sodium 134 mmol/L (136-145) L 07/24/21 04:45 Potassium 3.3 mmol/L (3.5-5.1) L 07/24/21 04:45 Chloride 99 mmol/L (98-107) 07/24/21 04:45 Carbon Dioxide 28.9 mmol/L (21-32) 07/24/21 04:45 BUN 4 mg/dL (7-18) L 07/24/21 04:45 Creatinine 0.46 mg/dL (0.55-1.02) L 07/24/21 04:45 Est GFR (MDRD) Af Amer > 60 (>60) 07/24/21 04:45 Est GFR (MDRD) Non-Af > 60 (>60) 07/24/21 04:45 Glucose 117 mg/dL (65-99) H 07/24/21 04:45 POC Glucose (mg/dL) 120 mg/dL (65-99) H 07/24/21 04:47 Calcium 7.9 mg/dL (8.5-10.1) L 07/24/21 04:45 Corrected Calcium 9.9 mg/dL (8.5-10.1) 07/24/21 04:45 Magnesium 2.1 mg/dL (1.7-2.9) 07/24/21 05:49 Iron 9 ug/dL (50-175) L 07/21/21 05:29 Transferrin 100 mg/dL (202-364) L 07/21/21 05:29 Ferritin 184 ng/mL (8-252) 07/21/21 05:29 Total Bilirubin 0.90 mg/dL (0.2-1.0) 07/24/21 04:45 AST 18 Units/L (15-37) 07/24/21 04:45 ALT 12 Units/L (12-78) 07/24/21 04:45 Alkaline Phosphatase 69 Units/L (46-116) 07/24/21 04:45 Total Protein 6.2 g/dL (6.4-8.2) L 07/24/21 04:45 Albumin 1.5 g/dL (3.4-5.0) L 07/24/21 04:45 Globulin 4.7 g/dL (2.5-4.5) H 07/24/21 04:45 Albumin/Globulin Ratio 0.3 Ratio (1.1-2.1) L 07/24/21 04:45 Lipase 57 Units/L (73-393) L 07/19/21 09:49 Carcinoembryonic Ag 72.0 ng/mL (0.0-3.0) H 07/20/21 07:42 Vitamin B12 1254 pg/mL (193-986) H 07/21/21 05:29 Folate 4.2 ng/mL (>8.6) L 07/21/21 05:29 HCG, Qual Negative <10 mIU/mL 07/19/21 09:49 Specimen Type Clean catch urine 07/19/21 19:09 Urine Color Dark yellow (YELLOW) 07/19/21 19:09 Urine Appearance Clear (CLEAR) 07/19/21 19:09 Urine pH 6.0 (5.0 - 8.0) 07/19/21 19:09 Ur Specific [place] 1.010 (1.000-1.030) 07/19/21 19:09 Urine Protein 3+ (NEGATIVE) 07/19/21 19:09 Urine Glucose (UA) Negative (NEGATIVE) 07/19/21 19:09 Urine Ketones 4+ (NEGATIVE) 07/19/21 19:09 Urine Occult Blood 4+ (NEGATIVE) 07/19/21 19:09 Urine Nitrite Negative (NEGATIVE) 07/19/21 19:09 Urine Bilirubin Negative (NEGATIVE) 07/19/21 19:09 Urine Urobilinogen 1+ (NORMAL) 07/19/21 19:09 Ur Leukocyte Esterase 1+ (NEGATIVE) 07/19/21 19:09 Urine RBC 5-10 /HPF (0-3) A 07/19/21 19:09 Urine WBC 5-10 /HPF (0-5) A 07/19/21 19:09 Ur Squamous Epith Cells Moderate /HPF (NEGATIVE) 07/19/21 19:09 Urine Bacteria Trace /HPF (NEGATIVE) 07/19/21 19:09 Ur Culture Indicated? No/not indicated 07/19/21 19:09 Stool Description 15g 07/21/21 11:10 Stool Description 15g 07/21/21 11:10 Stl Occult Blood (IFOB) Negative (NEGATIVE) 07/21/21 11:10 Stl C. diff Tox B Gene Negative (NEGATIVE) 07/21/21 11:10 Stl C. diff [id number] Presumptive negative (NEGATIVE) 07/21/21 11:10 Cryptosporid parvum Ag Negative (NEGATIVE) 07/21/21 11:10 Giardia lamblia Ag Negative (NEGATIVE) 07/21/21 11:10 SARS CoV-2 RNA Rapid DARIEL Positive (NEGATIVE) A 07/19/21 09:56 Tissue Pathology To follow 07/22/21 07:41 Blood Type O POSITIVE 07/23/21 10:37 Antibody Screen Negative 07/23/21 10:37 Crossmatch See Detail 07/23/21 10:37 - Assessment and Plan 1: recto sigmoid cancer clinically .( awaiting path report ). anemia 2nd to bleeding colon tumor . entero cutaneous fistula . lower abdomen. DM . Covid 19 . for diverting colostomy in am .. - Problem Patient Problems: Patient Problems Diabetes mellitus (Chronic) E11.9 COVID-19 (Acute) U07.1 Symptomatic anemia (Acute) D64.9 Abdominal mass, right lower quadrant (Acute) R19.03 Acute hypokalemia (Acute) E87.6 Anemia (Acute) D64.9
[2021-07-24] MEDS ORDERED: NS 500 ML IV 500 ML IV ONE (12:46)
[2021-07-24] MEDS: ZOFRAN INJ 4 MG VIAL IVP PRN (13:35)
[2021-07-24 13:42] VITALS: BMI 26.4
[2021-07-24 16:38] LABS: HEMOGLOBIN 8.6 g/dL (12.0-16.0)
[2021-07-25] MEDS: MORPHINE SULFATE INJ 2 MG INJ IVP PRN ×3 (00:46→21:41)
[2021-07-25 05:23] LABS: BASOPHILS % (AUTO) 0.4 % (0.2-1.0); EOSINOPHILS % (AUTO) 0.9 % (0.9-2.9); HEMATOCRIT 26.8 % (36.0-47.0); HEMOGLOBIN 8.4 g/dL (12.0-16.0); LYMPHOCYTES # (AUTO) 0.8 X10^3/uL (1.3-2.9); LYMPHOCYTES % (AUTO) 15.2 % (21.0-51.0); MEAN CORPUSCULAR HEMOGLOBIN 21.6 pg (27.0-34.0); MEAN CORPUSCULAR HGB CONC 31.5 g/dL (33.0-35.0); MEAN CORPUSCULAR VOLUME 68.7 fL (80.0-100.0); MEAN PLATELET VOLUME 7.4 fL (7.4-11.0); MONOCYTES # (AUTO) 0.7 x10^3/uL (0.3-0.8); MONOCYTES % (AUTO) 13.8 % (0.0-13.0); NEUTROPHILS # (AUTO) 3.7 x10^3/uL (2.2-4.8); NEUTROPHILS % (AUTO) 69.7 % (42.0-75.0); RED CELL DISTRIBUTION WIDTH 23.7 % (11.6-16.5); WHITE BLOOD COUNT 5.2 X10^3/uL (3.6-10.0)
[2021-07-25 05:40] LABS: ALANINE AMINOTRANSFERASE 10 Units/L (12-78); ALBUMIN 1.9 g/dL (3.4-5.0); ALKALINE PHOSPHATASE 62 Units/L (46-116); ASPARTATE AMINO TRANSFERASE 13 Units/L (15-37); BLOOD UREA NITROGEN 2 mg/dL (7-18); CALCIUM 7.7 mg/dL (8.5-10.1); CARBON DIOXIDE 29.7 mmol/L (21-32); CHLORIDE 101 mmol/L (98-107); COR CA(FOR HYPOALB) 9.4 mg/dL (8.5-10.1); CREATININE 0.48 mg/dL (0.55-1.02); SODIUM 136 mmol/L (136-145); TOTAL PROTEIN 6.5 g/dL (6.4-8.2); eGFR NON BLACK RACES > 60 (>60)
[2021-07-25] MEDS: D5 1/2 NS 1,000 ML 1,000 ML IV SCH ×2 (05:56→15:35)
[2021-07-25] MEDS: ZOSYN VIAL 3.375 GRAMS 3.375 G in NS 100 ML IV + SPIKE MINIBAG* 100 ML IV SCH ×3 (05:56→21:29)
[2021-07-25 06:18] LABS: ANISOCYTOSIS 2+; MICROCYTOSIS 1+; PLATELET MORPHOLOGY COMMENT NORMAL (NORMAL)
[2021-07-25] MEDS: ALBUMIN HUMAN 25%- 100 ML 100 ML IV SCH (10:15)
[2021-07-25] MEDS ORDERED: PRECEDEX 400 MCG/100 ML *PREMIX 400 MCG/100 ML INFUS..BTL IV ONE (10:36)
[2021-07-25] MEDS ORDERED: BRIDION ONE (10:36)
[2021-07-25] MEDS ORDERED: DECADRON INJ ONE (10:36)
[2021-07-25] MEDS ORDERED: OFIRMEV IV 1000 MG VIAL 1,000 MG/100 ML VIAL IV ONE (10:37)
[2021-07-25] MEDS ORDERED: PEPCID 20 MG VIAL ONE (10:37)
[2021-07-25] MEDS ORDERED: ZEMURON 50 MG VIAL ONE (10:37)
[2021-07-25] MEDS ORDERED: LR 1,000 ML IV 1,000 ML IV ONE (10:37)
[2021-07-25] MEDS ORDERED: FENTANYL VIAL INJ 100 mcg ONE (10:38)
[2021-07-25] MEDS ORDERED: DILAUDID INJ ONE (10:38)
[2021-07-25] MEDS ORDERED: POLYMYXIN B SULFATE ONE (10:45)
[2021-07-25] MEDS ORDERED: KETAMINE HCL ONE (10:50)
[2021-07-25] MEDS ORDERED: NS 1,000 ML IV 1,000 ML ONE (10:52)
[2021-07-25] MEDS ORDERED: LACRI-LUBE S.O.P. ONE (11:11)
[2021-07-25] MEDS ORDERED: DIPRIVAN VIAL ONE (11:11)
[2021-07-25] MEDS ORDERED: VERSED ONE (11:11)
[2021-07-25] MEDS ORDERED: ZOFRAN INJ 4 MG VIAL ONE (11:11)
[2021-07-25] MEDS ORDERED: XYLOCAINE 2 % (PLAIN) ONE (11:11)
--- NOTE | 2021-07-25 13:08 | OR.IMMED ---
Immediate Post-Op Note - Immediate Post-Op Note Pre-Op Diagnosis: colon cancer . colo-cutaneous fistula with pelvic abscess . anemia .. Covi19 Post-Op Diagnosis: same as above . Procedure: complete diverting colostomy of the transverse colon .. Surgeon/Pigment Weigher: Dr ring Findings: normal anatomy . Estimated Blood Loss: 10 cc Drains: NONE Complications: shreya Condition: Stable (keep NPO today , same IV ABT)
[2021-07-25] MEDS ORDERED: BARHEMSYS INJ IVP PRN (13:33)
[2021-07-25] MEDS ORDERED: BENADRYL INJ 50 MG VIAL IVP PRN (13:33)
[2021-07-25] MEDS ORDERED: DILAUDID INJ IVP PRN (13:33)
[2021-07-25] MEDS ORDERED: PHENERGAN INJ 25 MG IM PRN (13:33)
[2021-07-25] MEDS: PROTONIX INJ 40 MG VIAL IVP SCH (15:36)
[2021-07-25 19:14] LABS: HEMATOCRIT 30.6 % (36.0-47.0); HEMOGLOBIN 9.7 g/dL (12.0-16.0)
[2021-07-25] MEDS: ZOFRAN INJ 4 MG VIAL IVP PRN (21:42)
--- NOTE | 2021-07-25 22:48 | PCM.PROG ---
Progress Note Progress Note for Day of Date of Exam: 07/25/21 Subjective Subjective: Pt is a 41 year old female past medical history of DMT2. She was admitted for Abdominal wall and pelvic abscess, Hypokalemia, Symptomatic anemia, COVID-19 positive. On 07/20/21, patient had incision and drainage of abdominal abscess. She had a colonoscopy on Sunday that revealed a large abdominal mass, CEA obtained also significantly elevated. Dr. Cooper plans for diverting colostomy this morning. She has received a total of four units of packed red blood cells since admission. She continues with complaints of weakness and abdominal tenderness today. Labs/imaging: wbc 5.2, hgb 9.7, plt 281, sodium 136, potassium 3.6, creatinine 0.48, glucose 92, Abdominal wound culture positive for growth of e.coli, strep anginosus, staph hyicus. Stool culture is NGTD. Continue current treatments of: D51/2ns at 75 ml/hr, zosyn 3.375g iv tid, duonebs q6h prn, tussionex 5ml po q12h prn, morphine 2mg iv q4h prn, Zofran 4mg iv q8h prn, otbs achs, humulin r sliding scale, Tylenol 650mg po q6h prn. Continue Albumin 25% iv daily. Will change antibiotics to Levaquin to cover all organisms of growth. Otherwise continue with current treatment plan today. General surgery following. Continue to closely monitor and follow up labs/imaging. TIME SPENT ON CLINICAL ASSESSMENT, REVIEWING LABS AND IMAGING, DECISION MAKING, AND DOCUMENTATION GREATER THAN 45 MINUTES. Past Medical Family Social History Past Med/Fam/Surg Hx: No changes since H&P Allergies: Allergies No Known Drug Allergies Allergy (Verified 07/19/21 09:09) Review of Systems ROS: No change since H&P Vital Signs and I&O's Vital Signs: Temperature 97.6 F Pulse Rate [Right Brachial] 68 Pulse Rate [Apical] 72 Pulse Rate 79 Respiratory Rate 18 Blood Pressure [Right Arm] 136/69 Blood Pressure [Left Arm] 111/64 Blood Pressure 113/68 O2 Sat by Pulse Oximetry 99 Intake and Output: Intake & Output 07/22/21 07/23/21 07/24/21 07/25/21 23:59 23:59 23:59 23:59 Intake Total 2142 / 2142 2571 / 2571 2004 3346 / 3346 Output Total 200 / 200 215 / 215 265 / 265 2185 / 2185 Balance 1942 / 1942 2356 / 2356 1740 / 1740 1161 / 1161 Physical Exam Oriented: Normal Eyes: Normal Ear: Normal Nose: Normal Throat: Normal Respiratory: Normal Cardiovascular: Normal : Normal Auscultation: Bowel Sounds: Normal Tenderness: RLQ (soft abdomen with moderate tenderness RLQ and suprapubic area .), Mild and Other (flst abdomen with mild erythema RLQ and supra pubic area .. fistula site is draining stool ) Skin: Normal Musculoskeletal: Normal Psychiatric: Normal Mood Description: Calm Affect: Normal Speech Pattern: Clear and Appropriate Laboratory and Diagnostics Result Diagrams: 07/25/21 18:54 07/25/21 04:50 Labs: 07/20/21 14:35 Abdomen Wound Gram Stain - Final 07/20/21 14:35 Abdomen Wound Culture - Preliminary Streptococcus Anginosus 07/20/21 11:12 Abdomen Wound Gram Stain - Final 07/20/21 11:12 Abdomen Wound Culture - Final Escherichia Coli Staphylococcus Hyicus#3 Streptococcus Anginosus 07/21/21 11:10 Stool Stool Culture - Final 07/21/21 11:10 Stool - Final Laboratory WBC 5.2 X10^3/uL (3.6-10.0) 07/25/21 04:50 RBC 3.90 X10^6/uL (3.5-5.4) 07/25/21 04:50 Hgb 9.7 g/dL (12.0-16.0) L 07/25/21 18:54 Hct 30.6 % (36.0-47.0) L 07/25/21 18:54 MCV 68.7 fL (80.0-100.0) L 07/25/21 04:50 MCH 21.6 pg (27.0-34.0) L 07/25/21 04:50 MCHC 31.5 g/dL (33.0-35.0) L 07/25/21 04:50 RDW 23.7 % (11.6-16.5) H 07/25/21 04:50 Plt Count 281 X10^3/uL (150.0-450.0) 07/25/21 04:50 Plt Count Comment Adequate (ADEQUATE) 07/25/21 04:50 MPV 7.4 fL (7.4-11.0) 07/25/21 04:50 Neut % (Auto) 69.7 % (42.0-75.0) 07/25/21 04:50 Lymph % (Auto) 15.2 % (21.0-51.0) L 07/25/21 04:50 [place] % (Auto) 13.8 % (0.0-13.0) H 07/25/21 04:50 Eos % (Auto) 0.9 % (0.9-2.9) 07/25/21 04:50 Baso % (Auto) 0.4 % (0.2-1.0) 07/25/21 04:50 Neut # (Auto) 3.7 x10^3/uL (2.2-4.8) 07/25/21 04:50 Lymph # (Auto) 0.8 X10^3/uL (1.3-2.9) L 07/25/21 04:50 [place] # (Auto) 0.7 x10^3/uL (0.3-0.8) 07/25/21 04:50 Eos # (Auto) 0.0 x10^3/uL (0.0-0.2) 07/25/21 04:50 Baso # (Auto) 0.0 X10^3/uL (0.0-0.1) 07/25/21 04:50 Absolute Nucleated RBC 0.0 /100WBC 07/25/21 04:50 Plt Morphology Comment Normal (NORMAL) 07/25/21 04:50 RBC Morphology Abnormal (NORMAL) A 07/25/21 04:50 Dimorphic RBCs Slight 07/22/21 06:38 Hypochromasia 2+ A 07/24/21 04:45 Poikilocytosis Slight A 07/19/21 09:49 Anisocytosis 2+ A 07/25/21 04:50 Microcytosis 1+ A 07/25/21 04:50 Target Cells Present 07/24/21 04:45 Stomatocytes Present 07/24/21 04:45 Sodium 136 mmol/L (136-145) 07/25/21 04:50 Corrected Sodium TNP 07/25/21 04:50 Potassium 3.6 mmol/L (3.5-5.1) 07/25/21 04:50 Chloride 101 mmol/L (98-107) 07/25/21 04:50 Carbon Dioxide 29.7 mmol/L (21-32) 07/25/21 04:50 BUN 2 mg/dL (7-18) L 07/25/21 04:50 Creatinine 0.48 mg/dL (0.55-1.02) L 07/25/21 04:50 Est GFR (MDRD) Af Amer > 60 (>60) 07/25/21 04:50 Est GFR (MDRD) Non-Af > 60 (>60) 07/25/21 04:50 Glucose 92 mg/dL (65-99) 07/25/21 04:50 POC Glucose (mg/dL) 149 mg/dL (65-99) H 07/25/21 19:01 Calcium 7.7 mg/dL (8.5-10.1) L 07/25/21 04:50 Corrected Calcium 9.4 mg/dL (8.5-10.1) 07/25/21 04:50 Magnesium 2.1 mg/dL (1.7-2.9) 07/24/21 05:49 Iron 9 ug/dL (50-175) L 07/21/21 05:29 Transferrin 100 mg/dL (202-364) L 07/21/21 05:29 Ferritin 184 ng/mL (8-252) 07/21/21 05:29 Total Bilirubin 0.90 mg/dL (0.2-1.0) 07/25/21 04:50 AST 13 Units/L (15-37) L 07/25/21 04:50 ALT 10 Units/L (12-78) L 07/25/21 04:50 Alkaline Phosphatase 62 Units/L (46-116) 07/25/21 04:50 Total Protein 6.5 g/dL (6.4-8.2) 07/25/21 04:50 Albumin 1.9 g/dL (3.4-5.0) L 07/25/21 04:50 Globulin 4.6 g/dL (2.5-4.5) H 07/25/21 04:50 Albumin/Globulin Ratio 0.4 Ratio (1.1-2.1) L 07/25/21 04:50 Lipase 57 Units/L (73-393) L 07/19/21 09:49 Carcinoembryonic Ag 72.0 ng/mL (0.0-3.0) H 07/20/21 07:42 Vitamin B12 1254 pg/mL (193-986) H 07/21/21 05:29 Folate 4.2 ng/mL (>8.6) L 07/21/21 05:29 HCG, Qual Negative <10 mIU/mL 07/19/21 09:49 Specimen Type Clean catch urine 07/19/21 19:09 Urine Color Dark yellow (YELLOW) 07/19/21 19:09 Urine Appearance Clear (CLEAR) 07/19/21 19:09 Urine pH 6.0 (5.0 - 8.0) 07/19/21 19:09 Ur Specific [place] 1.010 (1.000-1.030) 07/19/21 19:09 Urine Protein 3+ (NEGATIVE) 07/19/21 19:09 Urine Glucose (UA) Negative (NEGATIVE) 07/19/21 19:09 Urine Ketones 4+ (NEGATIVE) 07/19/21 19:09 Urine Occult Blood 4+ (NEGATIVE) 07/19/21 19:09 Urine Nitrite Negative (NEGATIVE) 07/19/21 19:09 Urine Bilirubin Negative (NEGATIVE) 07/19/21 19:09 Urine Urobilinogen 1+ (NORMAL) 07/19/21 19:09 Ur Leukocyte Esterase 1+ (NEGATIVE) 07/19/21 19:09 Urine RBC 5-10 /HPF (0-3) A 07/19/21 19:09 Urine WBC 5-10 /HPF (0-5) A 07/19/21 19:09 Ur Squamous Epith Cells Moderate /HPF (NEGATIVE) 07/19/21 19:09 Urine Bacteria Trace /HPF (NEGATIVE) 07/19/21 19:09 Ur Culture Indicated? No/not indicated 07/19/21 19:09 Stool Description 15g 07/21/21 11:10 Stool Description 15g 07/21/21 11:10 Stl Occult Blood (IFOB) Negative (NEGATIVE) 07/21/21 11:10 Stl C. diff Tox B Gene Negative (NEGATIVE) 07/21/21 11:10 Stl C. diff [id number] Presumptive negative (NEGATIVE) 07/21/21 11:10 Cryptosporid parvum Ag Negative (NEGATIVE) 07/21/21 11:10 Giardia lamblia Ag Negative (NEGATIVE) 07/21/21 11:10 SARS CoV-2 RNA Rapid DARIEL Positive (NEGATIVE) A 07/19/21 09:56 Tissue Pathology To follow 07/22/21 07:41 Blood Type O POSITIVE 07/23/21 10:37 Antibody Screen Negative 07/23/21 10:37 Crossmatch See Detail 07/23/21 10:37 Plan (1) Abdominal mass, right lower quadrant: Status: Acute Plan: surgery consult, continue IV antibiotics, IV fluids, pain manageme nt, otbs achs, ssi. (2) Symptomatic anemia: Status: Acute Plan: transfuse prbc (3) Acute hypokalemia: Status: Acute (4) COVID-19: Status: Acute (5) Diabetes mellitus: Status: Chronic Qualifiers: Diabetes mellitus complication status: with hyperglycemia Diabetes mellitus residential insulin use: with residential use Diabetes mellitus type: type 2 Qualified Code(s): E11.65 - Type 2 diabetes mellitus with hyperglycemia; Z79.4 - care home (current) use of insulin
[2021-07-26] MEDS: D5 1/2 NS 1,000 ML 1,000 ML IV SCH ×4 (00:10→22:15)
[2021-07-26] MEDS: K-RIDER 10 MEQ/NS 100 ML 10 MEQ/100 ML BAG IV PRN ×2 (00:36→02:00)
[2021-07-26] MEDS: MORPHINE SULFATE INJ 2 MG INJ IVP PRN ×3 (01:57→18:02)
[2021-07-26 06:33] LABS: BASOPHILS % (AUTO) 0.1 % (0.2-1.0); EOSINOPHILS % (AUTO) 0.1 % (0.9-2.9); HEMATOCRIT 30.9 % (36.0-47.0); HEMOGLOBIN 9.6 g/dL (12.0-16.0); LYMPHOCYTES # (AUTO) 0.6 X10^3/uL (1.3-2.9); LYMPHOCYTES % (AUTO) 11.1 % (21.0-51.0); MEAN CORPUSCULAR HEMOGLOBIN 21.7 pg (27.0-34.0); MEAN CORPUSCULAR HGB CONC 31.3 g/dL (33.0-35.0); MEAN CORPUSCULAR VOLUME 69.3 fL (80.0-100.0); MEAN PLATELET VOLUME 7.4 fL (7.4-11.0); MONOCYTES # (AUTO) 0.5 x10^3/uL (0.3-0.8); MONOCYTES % (AUTO) 9.8 % (0.0-13.0); NEUTROPHILS # (AUTO) 4.1 x10^3/uL (2.2-4.8); NEUTROPHILS % (AUTO) 78.9 % (42.0-75.0); RED BLOOD COUNT 4.45 X10^6/uL (3.5-5.4); RED CELL DISTRIBUTION WIDTH 24.7 % (11.6-16.5); WHITE BLOOD COUNT 5.1 X10^3/uL (3.6-10.0)
[2021-07-26 07:00] LABS: ALANINE AMINOTRANSFERASE 7 Units/L (12-78); ALBUMIN 2.1 g/dL (3.4-5.0); ALKALINE PHOSPHATASE 59 Units/L (46-116); ASPARTATE AMINO TRANSFERASE 10 Units/L (15-37); BLOOD UREA NITROGEN 7 mg/dL (7-18); CARBON DIOXIDE 26.2 mmol/L (21-32); CHLORIDE 100 mmol/L (98-107); COR CA(FOR HYPOALB) 9.5 mg/dL (8.5-10.1); COR NA(FOR HYPERGLY) 135 mmol/L (136-145); CREATININE 0.57 mg/dL (0.55-1.02); MAGNESIUM 2.7 mg/dL (1.7-2.9); SODIUM 133 mmol/L (136-145); eGFR NON BLACK RACES > 60 (>60)
[2021-07-26 07:41] LABS: ANISOCYTOSIS 3+; MICROCYTOSIS 1+; PLATELET MORPHOLOGY COMMENT NORMAL (NORMAL)
[2021-07-26] MEDS: LEVAQUIN PREMIX IV 750 MG 750 MG/150 ML BAG IV SCH (09:23)
[2021-07-26] MEDS: PROTONIX INJ 40 MG VIAL IVP SCH (09:23)
[2021-07-26] MEDS: ALBUMIN HUMAN 25%- 100 ML 100 ML IV SCH (10:15)
--- NOTE | 2021-07-26 11:48 | DR.PROGNOT ---
Hospital Progress Notes - Progress Note for Day of: Progress Note Date: 07/26/21 - Chief Complaint Chief Complaint: s/p diverting colostomy .. feeling better today with less abdominal pain . bowel fistula is draining moderate amount . Hgb 9.6.. normal LFTs . afebrile .. - Past Medical Family Social History Past Med/Fam/Surg Hx: No changes since H&P Allergies: Allergies No Known Drug Allergies Allergy (Verified 07/19/21 09:09) - Review Of Systems ROS: No change since H&P - Vital Signs Vital Signs: Temperature 97.6 F Pulse Rate [Right Brachial] 68 Pulse Rate [Apical] 72 Pulse Rate 79 Respiratory Rate 18 Blood Pressure [Right Arm] 130/68 Blood Pressure [Left Arm] 111/64 Blood Pressure 113/68 O2 Sat by Pulse Oximetry 98 - Physical Exam Oriented: Normal Eyes: Normal Ear: Normal Nose: Normal Throat: Normal Respiratory: Normal Cardiovascular: Normal : Normal GI:Auscultation: Normal GI:Palpation: Normal GI: Tenderness: RLQ (soft abdomen with moderate tenderness RLQ and suprapubic area .), Mild, Other (flst abdomen with mild erythema RLQ and supra pubic area .. fistula site is draining stool) Skin: Normal Musculoskeletal: Normal Psychiatric: Normal Mood Description: Calm Affect: Normal Speech Pattern: Clear, Appropriate - Laboratory and Diagnostics Result Diagrams: 07/26/21 06:13 07/26/21 06:13 Labs: 07/20/21 14:35 Abdomen Wound Gram Stain - Final 07/20/21 14:35 Abdomen Wound Culture - Final Staphylococcus Hyicus Streptococcus Anginosus 07/20/21 11:12 Abdomen Wound Gram Stain - Final 07/20/21 11:12 Abdomen Wound Culture - Final Escherichia Coli Staphylococcus Hyicus#3 Streptococcus Anginosus 07/21/21 11:10 Stool Stool Culture - Final 07/21/21 11:10 Stool - Final Laboratory WBC 5.1 X10^3/uL (3.6-10.0) 07/26/21 06:13 RBC 4.45 X10^6/uL (3.5-5.4) 07/26/21 06:13 Hgb 9.6 g/dL (12.0-16.0) L 07/26/21 06:13 Hct 30.9 % (36.0-47.0) L 07/26/21 06:13 MCV 69.3 fL (80.0-100.0) L 07/26/21 06:13 MCH 21.7 pg (27.0-34.0) L 07/26/21 06:13 MCHC 31.3 g/dL (33.0-35.0) L 07/26/21 06:13 RDW 24.7 % (11.6-16.5) H 07/26/21 06:13 Plt Count 354 X10^3/uL (150.0-450.0) 07/26/21 06:13 Plt Count Comment Adequate (ADEQUATE) 07/26/21 06:13 MPV 7.4 fL (7.4-11.0) 07/26/21 06:13 Neut % (Auto) 78.9 % (42.0-75.0) H 07/26/21 06:13 Lymph % (Auto) 11.1 % (21.0-51.0) L 07/26/21 06:13 [place] % (Auto) 9.8 % (0.0-13.0) 07/26/21 06:13 Eos % (Auto) 0.1 % (0.9-2.9) L 07/26/21 06:13 Baso % (Auto) 0.1 % (0.2-1.0) L 07/26/21 06:13 Neut # (Auto) 4.1 x10^3/uL (2.2-4.8) 07/26/21 06:13 Lymph # (Auto) 0.6 X10^3/uL (1.3-2.9) L 07/26/21 06:13 [place] # (Auto) 0.5 x10^3/uL (0.3-0.8) 07/26/21 06:13 Eos # (Auto) 0.0 x10^3/uL (0.0-0.2) 07/26/21 06:13 Baso # (Auto) 0.0 X10^3/uL (0.0-0.1) 07/26/21 06:13 Absolute Nucleated RBC 0.0 /100WBC 07/26/21 06:13 Plt Morphology Comment Normal (NORMAL) 07/26/21 06:13 RBC Morphology Abnormal (NORMAL) A 07/26/21 06:13 Dimorphic RBCs Slight 07/22/21 06:38 Hypochromasia 2+ A 07/24/21 04:45 Poikilocytosis Slight A 07/19/21 09:49 Anisocytosis 3+ A 07/26/21 06:13 Microcytosis 1+ A 07/26/21 06:13 Target Cells Present 07/24/21 04:45 Stomatocytes Present 07/24/21 04:45 Sodium 133 mmol/L (136-145) L 07/26/21 06:13 Corrected Sodium 135 mmol/L (136-145) L 07/26/21 06:13 Potassium 4.6 mmol/L (3.5-5.1) 07/26/21 06:13 Chloride 100 mmol/L (98-107) 07/26/21 06:13 Carbon Dioxide 26.2 mmol/L (21-32) 07/26/21 06:13 BUN 7 mg/dL (7-18) 07/26/21 06:13 Creatinine 0.57 mg/dL (0.55-1.02) 07/26/21 06:13 Est GFR (MDRD) Af Amer > 60 (>60) 07/26/21 06:13 Est GFR (MDRD) Non-Af > 60 (>60) 07/26/21 06:13 Glucose 201 mg/dL (65-99) H 07/26/21 06:13 POC Glucose (mg/dL) 184 mg/dL (65-99) H 07/26/21 05:14 Calcium 8.0 mg/dL (8.5-10.1) L 07/26/21 06:13 Corrected Calcium 9.5 mg/dL (8.5-10.1) 07/26/21 06:13 Magnesium 2.7 mg/dL (1.7-2.9) 07/26/21 06:13 Iron 9 ug/dL (50-175) L 07/21/21 05:29 Transferrin 100 mg/dL (202-364) L 07/21/21 05:29 Ferritin 184 ng/mL (8-252) 07/21/21 05:29 Total Bilirubin 0.80 mg/dL (0.2-1.0) 07/26/21 06:13 AST 10 Units/L (15-37) L 07/26/21 06:13 ALT 7 Units/L (12-78) L 07/26/21 06:13 Alkaline Phosphatase 59 Units/L (46-116) 07/26/21 06:13 Total Protein 7.0 g/dL (6.4-8.2) 07/26/21 06:13 Albumin 2.1 g/dL (3.4-5.0) L 07/26/21 06:13 Globulin 4.9 g/dL (2.5-4.5) H 07/26/21 06:13 Albumin/Globulin Ratio 0.4 Ratio (1.1-2.1) L 07/26/21 06:13 Lipase 57 Units/L (73-393) L 07/19/21 09:49 Carcinoembryonic Ag 72.0 ng/mL (0.0-3.0) H 07/20/21 07:42 Vitamin B12 1254 pg/mL (193-986) H 07/21/21 05:29 Folate 4.2 ng/mL (>8.6) L 07/21/21 05:29 HCG, Qual Negative <10 mIU/mL 07/19/21 09:49 Specimen Type Clean catch urine 07/19/21 19:09 Urine Color Dark yellow (YELLOW) 07/19/21 19:09 Urine Appearance Clear (CLEAR) 07/19/21 19:09 Urine pH 6.0 (5.0 - 8.0) 07/19/21 19:09 Ur Specific [place] 1.010 (1.000-1.030) 07/19/21 19:09 Urine Protein 3+ (NEGATIVE) 07/19/21 19:09 Urine Glucose (UA) Negative (NEGATIVE) 07/19/21 19:09 Urine Ketones 4+ (NEGATIVE) 07/19/21 19:09 Urine Occult Blood 4+ (NEGATIVE) 07/19/21 19:09 Urine Nitrite Negative (NEGATIVE) 07/19/21 19:09 Urine Bilirubin Negative (NEGATIVE) 07/19/21 19:09 Urine Urobilinogen 1+ (NORMAL) 07/19/21 19:09 Ur Leukocyte Esterase 1+ (NEGATIVE) 07/19/21 19:09 Urine RBC 5-10 /HPF (0-3) A 07/19/21 19:09 Urine WBC 5-10 /HPF (0-5) A 07/19/21 19:09 Ur Squamous Epith Cells Moderate /HPF (NEGATIVE) 07/19/21 19:09 Urine Bacteria Trace /HPF (NEGATIVE) 07/19/21 19:09 Ur Culture Indicated? No/not indicated 07/19/21 19:09 Stool Description 15g 07/21/21 11:10 Stool Description 15g 07/21/21 11:10 Stl Occult Blood (IFOB) Negative (NEGATIVE) 07/21/21 11:10 Stl C. diff Tox B Gene Negative (NEGATIVE) 07/21/21 11:10 Stl C. diff [id number] Presumptive negative (NEGATIVE) 07/21/21 11:10 Cryptosporid parvum Ag Negative (NEGATIVE) 07/21/21 11:10 Giardia lamblia Ag Negative (NEGATIVE) 07/21/21 11:10 SARS CoV-2 RNA Rapid DARIEL Positive (NEGATIVE) A 07/19/21 09:56 Tissue Pathology To follow 07/22/21 07:41 Blood Type O POSITIVE 07/23/21 10:37 Antibody Screen Negative 07/23/21 10:37 Crossmatch See Detail 07/23/21 10:37 - Assessment and Plan 1: s/p diverting colostomy .. 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 elevated CEA 72. anemia 2nd to bleeding colon tumor . entero cutaneous fistula . lower abdomen. DM . Covid 19 . to d/c NGT , clear liquid .. - Problem Patient Problems: Patient Problems Diabetes mellitus (Chronic) E11.9 COVID-19 (Acute) U07.1 Symptomatic anemia (Acute) D64.9 Abdominal mass, right lower quadrant (Acute) R19.03 Acute hypokalemia (Acute) E87.6 Anemia (Acute) D64.9
[2021-07-26] MEDS: ZOFRAN INJ 4 MG VIAL IVP PRN (13:30)
--- NOTE | 2021-07-26 19:17 | PCM.PROG ---
Progress Note Progress Note for Day of Date of Exam: 07/26/21 Subjective Subjective: Pt is a 41 year old female past medical history of DMT2. She was admitted for Abdominal/Pelvic abscess, Hypokalemia, Symptomatic anemia, COVID-19 positive, and Abdominal mass. This morning she is post colostomy day #1. For her anemia, she has received a total of four units of packed red blood cells since admission. Her hemoglobin appears to have stabilized today. She does report some mild-moderate abdominal pain due to procedure. Labs/imaging: wbc 5.1, hgb 9.6, plt 354, sodium 135, potassium 4.6, creatinine 0.57, glucose 201, Abdominal wound culture positive for growth of e.coli, strep anginosus, staph hyicus. Stool culture is NGTD. Continue current treatments of: D51/2ns at 75 ml/hr, IV Levaquin 750mg, duonebs q6h prn, tussionex 5ml po q12h prn, morphine 2mg iv q4h prn, Zofran 4mg iv q8h prn, otbs achs, humulin r sliding scale, Tylenol 650mg po q6h prn. Continue Albumin 25% iv daily. Will remove NG tube this morning and start patient on clear liquid diet. Otherwise continue with current treatment plan today. General surgery following. Continue to closely monitor and follow up labs/imaging. TIME SPENT ON CLINICAL ASSESSMENT, REVIEWING LABS AND IMAGING, DECISION MAKING, AND DOCUMENTATION GREATER THAN 45 MINUTES. Past Medical Family Social History Past Med/Fam/Surg Hx: No changes since H&P Allergies: Allergies No Known Drug Allergies Allergy (Verified 07/19/21 09:09) Review of Systems ROS: No change since H&P Vital Signs and I&O's Vital Signs: Temperature 97.6 F Pulse Rate [Right Brachial] 68 Pulse Rate [Apical] 72 Pulse Rate 79 Respiratory Rate 20 Blood Pressure [Right Arm] 150/70 Blood Pressure [Left Arm] 111/64 Blood Pressure 113/68 O2 Sat by Pulse Oximetry 98 Intake and Output: Intake & Output 07/23/21 07/24/21 07/25/21 07/26/21 23:59 23:59 23:59 23:59 Intake Total 2571 / 2571 2004 4119 / 4119 3488 / 3488 Output Total 215 / 215 265 / 265 2945 / 2945 1300 / 1300 Balance 2356 / 2356 1740 / 1740 1174 / 1174 2188 / 2188 Physical Exam Oriented: Normal Eyes: Normal Ear: Normal Nose: Normal Throat: Normal Respiratory: Normal Cardiovascular: Normal : Normal Auscultation: Bowel Sounds: Normal Tenderness: Periumbilical and Mild Skin: Normal Musculoskeletal: Normal Psychiatric: Normal Mood Description: Calm Affect: Normal Speech Pattern: Clear and Appropriate Laboratory and Diagnostics Result Diagrams: 07/26/21 06:13 07/26/21 06:13 Labs: 07/20/21 14:35 Abdomen Wound Gram Stain - Final 07/20/21 14:35 Abdomen Wound Culture - Final Staphylococcus Hyicus Streptococcus Anginosus 07/20/21 11:12 Abdomen Wound Gram Stain - Final 07/20/21 11:12 Abdomen Wound Culture - Final Escherichia Coli Staphylococcus Hyicus#3 Streptococcus Anginosus 07/21/21 11:10 Stool Stool Culture - Final 07/21/21 11:10 Stool - Final Laboratory WBC 5.1 X10^3/uL (3.6-10.0) 07/26/21 06:13 RBC 4.45 X10^6/uL (3.5-5.4) 07/26/21 06:13 Hgb 9.6 g/dL (12.0-16.0) L 07/26/21 06:13 Hct 30.9 % (36.0-47.0) L 07/26/21 06:13 MCV 69.3 fL (80.0-100.0) L 07/26/21 06:13 MCH 21.7 pg (27.0-34.0) L 07/26/21 06:13 MCHC 31.3 g/dL (33.0-35.0) L 07/26/21 06:13 RDW 24.7 % (11.6-16.5) H 07/26/21 06:13 Plt Count 354 X10^3/uL (150.0-450.0) 07/26/21 06:13 Plt Count Comment Adequate (ADEQUATE) 07/26/21 06:13 MPV 7.4 fL (7.4-11.0) 07/26/21 06:13 Neut % (Auto) 78.9 % (42.0-75.0) H 07/26/21 06:13 Lymph % (Auto) 11.1 % (21.0-51.0) L 07/26/21 06:13 [place] % (Auto) 9.8 % (0.0-13.0) 07/26/21 06:13 Eos % (Auto) 0.1 % (0.9-2.9) L 07/26/21 06:13 Baso % (Auto) 0.1 % (0.2-1.0) L 07/26/21 06:13 Neut # (Auto) 4.1 x10^3/uL (2.2-4.8) 07/26/21 06:13 Lymph # (Auto) 0.6 X10^3/uL (1.3-2.9) L 07/26/21 06:13 [place] # (Auto) 0.5 x10^3/uL (0.3-0.8) 07/26/21 06:13 Eos # (Auto) 0.0 x10^3/uL (0.0-0.2) 07/26/21 06:13 Baso # (Auto) 0.0 X10^3/uL (0.0-0.1) 07/26/21 06:13 Absolute Nucleated RBC 0.0 /100WBC 07/26/21 06:13 Plt Morphology Comment Normal (NORMAL) 07/26/21 06:13 RBC Morphology Abnormal (NORMAL) A 07/26/21 06:13 Dimorphic RBCs Slight 07/22/21 06:38 Hypochromasia 2+ A 07/24/21 04:45 Poikilocytosis Slight A 07/19/21 09:49 Anisocytosis 3+ A 07/26/21 06:13 Microcytosis 1+ A 07/26/21 06:13 Target Cells Present 07/24/21 04:45 Stomatocytes Present 07/24/21 04:45 Sodium 133 mmol/L (136-145) L 07/26/21 06:13 Corrected Sodium 135 mmol/L (136-145) L 07/26/21 06:13 Potassium 4.6 mmol/L (3.5-5.1) 07/26/21 06:13 Chloride 100 mmol/L (98-107) 07/26/21 06:13 Carbon Dioxide 26.2 mmol/L (21-32) 07/26/21 06:13 BUN 7 mg/dL (7-18) 07/26/21 06:13 Creatinine 0.57 mg/dL (0.55-1.02) 07/26/21 06:13 Est GFR (MDRD) Af Amer > 60 (>60) 07/26/21 06:13 Est GFR (MDRD) Non-Af > 60 (>60) 07/26/21 06:13 Glucose 201 mg/dL (65-99) H 07/26/21 06:13 POC Glucose (mg/dL) 184 mg/dL (65-99) H 07/26/21 16:32 Calcium 8.0 mg/dL (8.5-10.1) L 07/26/21 06:13 Corrected Calcium 9.5 mg/dL (8.5-10.1) 07/26/21 06:13 Magnesium 2.7 mg/dL (1.7-2.9) 07/26/21 06:13 Iron 9 ug/dL (50-175) L 07/21/21 05:29 Transferrin 100 mg/dL (202-364) L 07/21/21 05:29 Ferritin 184 ng/mL (8-252) 07/21/21 05:29 Total Bilirubin 0.80 mg/dL (0.2-1.0) 07/26/21 06:13 AST 10 Units/L (15-37) L 07/26/21 06:13 ALT 7 Units/L (12-78) L 07/26/21 06:13 Alkaline Phosphatase 59 Units/L (46-116) 07/26/21 06:13 Total Protein 7.0 g/dL (6.4-8.2) 07/26/21 06:13 Albumin 2.1 g/dL (3.4-5.0) L 07/26/21 06:13 Globulin 4.9 g/dL (2.5-4.5) H 07/26/21 06:13 Albumin/Globulin Ratio 0.4 Ratio (1.1-2.1) L 07/26/21 06:13 Lipase 57 Units/L (73-393) L 07/19/21 09:49 Carcinoembryonic Ag 72.0 ng/mL (0.0-3.0) H 07/20/21 07:42 Vitamin B12 1254 pg/mL (193-986) H 07/21/21 05:29 Folate 4.2 ng/mL (>8.6) L 07/21/21 05:29 HCG, Qual Negative <10 mIU/mL 07/19/21 09:49 Specimen Type Clean catch urine 07/19/21 19:09 Urine Color Dark yellow (YELLOW) 07/19/21 19:09 Urine Appearance Clear (CLEAR) 07/19/21 19:09 Urine pH 6.0 (5.0 - 8.0) 07/19/21 19:09 Ur Specific [place] 1.010 (1.000-1.030) 07/19/21 19:09 Urine Protein 3+ (NEGATIVE) 07/19/21 19:09 Urine Glucose (UA) Negative (NEGATIVE) 07/19/21 19:09 Urine Ketones 4+ (NEGATIVE) 07/19/21 19:09 Urine Occult Blood 4+ (NEGATIVE) 07/19/21 19:09 Urine Nitrite Negative (NEGATIVE) 07/19/21 19:09 Urine Bilirubin Negative (NEGATIVE) 07/19/21 19:09 Urine Urobilinogen 1+ (NORMAL) 07/19/21 19:09 Ur Leukocyte Esterase 1+ (NEGATIVE) 07/19/21 19:09 Urine RBC 5-10 /HPF (0-3) A 07/19/21 19:09 Urine WBC 5-10 /HPF (0-5) A 07/19/21 19:09 Ur Squamous Epith Cells Moderate /HPF (NEGATIVE) 07/19/21 19:09 Urine Bacteria Trace /HPF (NEGATIVE) 07/19/21 19:09 Ur Culture Indicated? No/not indicated 07/19/21 19:09 Stool Description 15g 07/21/21 11:10 Stool Description 15g 07/21/21 11:10 Stl Occult Blood (IFOB) Negative (NEGATIVE) 07/21/21 11:10 Stl C. diff Tox B Gene Negative (NEGATIVE) 07/21/21 11:10 Stl C. diff [id number] Presumptive negative (NEGATIVE) 07/21/21 11:10 Cryptosporid parvum Ag Negative (NEGATIVE) 07/21/21 11:10 Giardia lamblia Ag Negative (NEGATIVE) 07/21/21 11:10 SARS CoV-2 RNA Rapid DARIEL Positive (NEGATIVE) A 07/19/21 09:56 Tissue Pathology To follow 07/22/21 07:41 Blood Type O POSITIVE 07/23/21 10:37 Antibody Screen Negative 07/23/21 10:37 Crossmatch See Detail 07/23/21 10:37 Plan (1) Abdominal mass, right lower quadrant: Status: Acute Plan: surgery consult, continue IV antibiotics, IV fluids, pain management, otbs achs, ssi. 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
[2021-07-27] MEDS: D5 1/2 NS 1,000 ML 1,000 ML IV SCH ×4 (00:54→22:20)
[2021-07-27] MEDS: MORPHINE SULFATE INJ 2 MG INJ IVP PRN ×4 (03:28→20:13)
[2021-07-27 05:29] LABS: BASOPHILS % (AUTO) 0.5 % (0.2-1.0); EOSINOPHILS % (AUTO) 0.5 % (0.9-2.9); HEMATOCRIT 28.7 % (36.0-47.0); HEMOGLOBIN 8.9 g/dL (12.0-16.0); LYMPHOCYTES # (AUTO) 0.9 X10^3/uL (1.3-2.9); LYMPHOCYTES % (AUTO) 17.7 % (21.0-51.0); MEAN CORPUSCULAR HEMOGLOBIN 21.7 pg (27.0-34.0); MEAN CORPUSCULAR HGB CONC 31.1 g/dL (33.0-35.0); MEAN CORPUSCULAR VOLUME 69.8 fL (80.0-100.0); MEAN PLATELET VOLUME 7.2 fL (7.4-11.0); MONOCYTES # (AUTO) 0.6 x10^3/uL (0.3-0.8); MONOCYTES % (AUTO) 11.3 % (0.0-13.0); NEUTROPHILS # (AUTO) 3.4 x10^3/uL (2.2-4.8); RED BLOOD COUNT 4.11 X10^6/uL (3.5-5.4); RED CELL DISTRIBUTION WIDTH 24.4 % (11.6-16.5); WHITE BLOOD COUNT 4.9 X10^3/uL (3.6-10.0)
[2021-07-27 05:44] LABS: ALBUMIN 2.2 g/dL (3.4-5.0); ALKALINE PHOSPHATASE 44 Units/L (46-116); ASPARTATE AMINO TRANSFERASE < 6 Units/L (15-37); BLOOD UREA NITROGEN 3 mg/dL (7-18); CALCIUM 7.8 mg/dL (8.5-10.1); CARBON DIOXIDE 26.9 mmol/L (21-32); CHLORIDE 108 mmol/L (98-107); COR CA(FOR HYPOALB) 9.2 mg/dL (8.5-10.1); COR NA(FOR HYPERGLY) 146 mmol/L (136-145); CREATININE 0.48 mg/dL (0.55-1.02); SODIUM 144 mmol/L (136-145); TOTAL PROTEIN 6.1 g/dL (6.4-8.2); eGFR NON BLACK RACES > 60 (>60)
[2021-07-27 05:58] LABS: ALANINE AMINOTRANSFERASE 10 Units/L (12-78)
[2021-07-27 06:12] LABS: PLATELET MORPHOLOGY COMMENT NORMAL (NORMAL)
[2021-07-27 06:13] LABS: ANISOCYTOSIS 3+; MICROCYTOSIS 1+
[2021-07-27] MEDS: K-RIDER 10 MEQ/NS 100 ML 10 MEQ/100 ML BAG IV PRN (06:24)
[2021-07-27] MEDS: PROTONIX INJ 40 MG VIAL IVP SCH (09:00)
[2021-07-27] MEDS: LEVAQUIN PREMIX IV 750 MG 750 MG/150 ML BAG IV SCH (09:00)
[2021-07-27] MEDS: ALBUMIN HUMAN 25%- 100 ML 100 ML IV SCH (09:00)
[2021-07-27] MEDS: K-DUR TAB 20 MEQ PO PRN (11:35)
--- NOTE | 2021-07-27 13:06 | PCM.PROG ---
Progress Note Progress Note for Day of Date of Exam: 07/27/21 Subjective Subjective: Pt is a 41 year old female past medical history of DMT2. She was admitted for Abdominal/Pelvic abscess, Hypokalemia, Symptomatic anemia, COVID-19 positive, and Abdominal mass. This morning she is post colostomy day #2. For her anemia, she has received a total of four units of packed red blood cells since admission. Her hemoglobin has stabilized and improving. Labs/imaging: wbc 4.9, hgb 8.9, plt 278, sodium 144, potassium 3.3, creatinine 0.48, glucose 174, Abdominal wound culture positive for growth of e.coli, strep anginosus, staph hyicus. Stool culture is NGTD. Continue current treatments of: D51/2ns at 75 ml/hr, IV Levaquin 750mg, duonebs q6h prn, tussionex 5ml po q12h prn, morphine 2mg iv q4h prn, Zofran 4mg iv q8h prn, otbs achs, humulin r sliding scale, Tylenol 650mg po q6h prn. Continue Albumin 25% iv daily. Will advance diet per surgery recommendations. Pathology results: villous adenoma with high grade dysplasia. Will need oncology follow up when discharged. Otherwise continue with current treatment plan today. General surgery following. Continue to closely monitor and follow up labs/imaging. Past Medical Family Social History Past Med/Fam/Surg Hx: No changes since H&P Allergies: Allergies No Known Drug Allergies Allergy (Verified 07/19/21 09:09) Review of Systems ROS: No change since H&P Vital Signs and I&O's Vital Signs: Temperature 97.7 F Pulse Rate [Right Brachial] 78 Pulse Rate [Apical] 72 Pulse Rate 79 Respiratory Rate 18 Blood Pressure [Right Arm] 146/66 Blood Pressure [Left Arm] 111/64 Blood Pressure 113/68 O2 Sat by Pulse Oximetry 99 Intake and Output: Intake & Output 07/24/21 07/25/21 07/26/21 07/27/21 23:59 23:59 23:59 23:59 Intake Total 2004 / 2004 4119 / 4119 4556 / 4556 944 / 944 Output Total 265 / 265 2945 / 2945 1820 / 1820 875 / 875 Balance 1740 / 1740 1174 / 1174 2736 / 2736 Physical Exam Oriented: Normal Eyes: Normal Ear: Normal Nose: Normal Throat: Normal Respiratory: Normal Cardiovascular: Normal : Normal Auscultation: Bowel Sounds: Normal Palpation: Normal Tenderness: Normal Skin: Normal Musculoskeletal: Normal Psychiatric: Normal Mood Description: Calm Affect: Normal Speech Pattern: Clear and Appropriate Laboratory and Diagnostics Result Diagrams: 07/27/21 05:05 07/27/21 05:05 Labs: 07/20/21 14:35 Abdomen Wound Gram Stain - Final 07/20/21 14:35 Abdomen Wound Culture - Final Staphylococcus Hyicus Streptococcus Anginosus 07/20/21 11:12 Abdomen Wound Gram Stain - Final 07/20/21 11:12 Abdomen Wound Culture - Final Escherichia Coli Staphylococcus Hyicus#3 Streptococcus Anginosus 07/21/21 11:10 Stool Stool Culture - Final 07/21/21 11:10 Stool - Final Laboratory WBC 4.9 X10^3/uL (3.6-10.0) 07/27/21 05:05 RBC 4.11 X10^6/uL (3.5-5.4) 07/27/21 05:05 Hgb 8.9 g/dL (12.0-16.0) L 07/27/21 05:05 Hct 28.7 % (36.0-47.0) L 07/27/21 05:05 MCV 69.8 fL (80.0-100.0) L 07/27/21 05:05 MCH 21.7 pg (27.0-34.0) L 07/27/21 05:05 MCHC 31.1 g/dL (33.0-35.0) L 07/27/21 05:05 RDW 24.4 % (11.6-16.5) H 07/27/21 05:05 Plt Count 278 X10^3/uL (150.0-450.0) 07/27/21 05:05 Plt Count Comment Adequate (ADEQUATE) 07/27/21 05:05 MPV 7.2 fL (7.4-11.0) L 07/27/21 05:05 Neut % (Auto) 70.0 % (42.0-75.0) 07/27/21 05:05 Lymph % (Auto) 17.7 % (21.0-51.0) L 07/27/21 05:05 [place] % (Auto) 11.3 % (0.0-13.0) 07/27/21 05:05 Eos % (Auto) 0.5 % (0.9-2.9) L 07/27/21 05:05 Baso % (Auto) 0.5 % (0.2-1.0) 07/27/21 05:05 Neut # (Auto) 3.4 x10^3/uL (2.2-4.8) 07/27/21 05:05 Lymph # (Auto) 0.9 X10^3/uL (1.3-2.9) L 07/27/21 05:05 [place] # (Auto) 0.6 x10^3/uL (0.3-0.8) 07/27/21 05:05 Eos # (Auto) 0.0 x10^3/uL (0.0-0.2) 07/27/21 05:05 Baso # (Auto) 0.0 X10^3/uL (0.0-0.1) 07/27/21 05:05 Absolute Nucleated RBC 0.1 /100WBC 07/27/21 05:05 Plt Morphology Comment Normal (NORMAL) 07/27/21 05:05 RBC Morphology Abnormal (NORMAL) A 07/27/21 05:05 Dimorphic RBCs Slight 07/27/21 05:05 Hypochromasia 2+ A 07/24/21 04:45 Poikilocytosis Slight A 07/19/21 09:49 Anisocytosis 3+ A 07/27/21 05:05 Microcytosis 1+ A 07/27/21 05:05 Target Cells Present 07/24/21 04:45 Stomatocytes Present 07/24/21 04:45 Sodium 144 mmol/L (136-145) 07/27/21 05:05 Corrected Sodium 146 mmol/L (136-145) H 07/27/21 05:05 Potassium 3.3 mmol/L (3.5-5.1) L 07/27/21 05:05 Chloride 108 mmol/L (98-107) H 07/27/21 05:05 Carbon Dioxide 26.9 mmol/L (21-32) 07/27/21 05:05 BUN 3 mg/dL (7-18) L 07/27/21 05:05 Creatinine 0.48 mg/dL (0.55-1.02) L 07/27/21 05:05 Est GFR (MDRD) Af Amer > 60 (>60) 07/27/21 05:05 Est GFR (MDRD) Non-Af > 60 (>60) 07/27/21 05:05 Glucose 174 mg/dL (65-99) H 07/27/21 05:05 POC Glucose (mg/dL) 100 mg/dL (65-99) H 07/27/21 12:11 Calcium 7.8 mg/dL (8.5-10.1) L 07/27/21 05:05 Corrected Calcium 9.2 mg/dL (8.5-10.1) 07/27/21 05:05 Magnesium 2.7 mg/dL (1.7-2.9) 07/26/21 06:13 Iron 9 ug/dL (50-175) L 07/21/21 05:29 Transferrin 100 mg/dL (202-364) L 07/21/21 05:29 Ferritin 184 ng/mL (8-252) 07/21/21 05:29 Total Bilirubin 0.50 mg/dL (0.2-1.0) 07/27/21 05:05 AST < 6 Units/L (15-37) L 07/27/21 05:05 ALT 10 Units/L (12-78) L 07/27/21 05:05 Alkaline Phosphatase 44 Units/L (46-116) L 07/27/21 05:05 Total Protein 6.1 g/dL (6.4-8.2) L 07/27/21 05:05 Albumin 2.2 g/dL (3.4-5.0) L 07/27/21 05:05 Globulin 3.9 g/dL (2.5-4.5) 07/27/21 05:05 Albumin/Globulin Ratio 0.6 Ratio (1.1-2.1) L 07/27/21 05:05 Lipase 57 Units/L (73-393) L 07/19/21 09:49 Carcinoembryonic Ag 72.0 ng/mL (0.0-3.0) H 07/20/21 07:42 Vitamin B12 1254 pg/mL (193-986) H 07/21/21 05:29 Folate 4.2 ng/mL (>8.6) L 07/21/21 05:29 HCG, Qual Negative <10 mIU/mL 07/19/21 09:49 Specimen Type Clean catch urine 07/19/21 19:09 Urine Color Dark yellow (YELLOW) 07/19/21 19:09 Urine Appearance Clear (CLEAR) 07/19/21 19:09 Urine pH 6.0 (5.0 - 8.0) 07/19/21 19:09 Ur Specific [place] 1.010 (1.000-1.030) 07/19/21 19:09 Urine Protein 3+ (NEGATIVE) 07/19/21 19:09 Urine Glucose (UA) Negative (NEGATIVE) 07/19/21 19:09 Urine Ketones 4+ (NEGATIVE) 07/19/21 19:09 Urine Occult Blood 4+ (NEGATIVE) 07/19/21 19:09 Urine Nitrite Negative (NEGATIVE) 07/19/21 19:09 Urine Bilirubin Negative (NEGATIVE) 07/19/21 19:09 Urine Urobilinogen 1+ (NORMAL) 07/19/21 19:09 Ur Leukocyte Esterase 1+ (NEGATIVE) 07/19/21 19:09 Urine RBC 5-10 /HPF (0-3) A 07/19/21 19:09 Urine WBC 5-10 /HPF (0-5) A 07/19/21 19:09 Ur Squamous Epith Cells Moderate /HPF (NEGATIVE) 07/19/21 19:09 Urine Bacteria Trace /HPF (NEGATIVE) 07/19/21 19:09 Ur Culture Indicated? No/not indicated 07/19/21 19:09 Stool Description 15g 07/21/21 11:10 Stool Description 15g 07/21/21 11:10 Stl Occult Blood (IFOB) Negative (NEGATIVE) 07/21/21 11:10 Stl C. diff Tox B Gene Negative (NEGATIVE) 07/21/21 11:10 Stl C. diff [id number] Presumptive negative (NEGATIVE) 07/21/21 11:10 Cryptosporid parvum Ag Negative (NEGATIVE) 07/21/21 11:10 Giardia lamblia Ag Negative (NEGATIVE) 07/21/21 11:10 SARS CoV-2 RNA Rapid DARIEL Positive (NEGATIVE) A 07/19/21 09:56 Tissue Pathology To follow 07/22/21 07:41 Blood Type O POSITIVE 07/23/21 10:37 Antibody Screen Negative 07/23/21 10:37 Crossmatch See Detail 07/23/21 10:37 Plan (1) Abdominal mass, right lower quadrant: Status: Acute Plan: surgery consult, continue IV antibiotics, IV fluids, pain management, otbs achs, ssi. 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
--- NOTE | 2021-07-27 14:12 | DR.PROGNOT ---
Hospital Progress Notes - Progress Note for Day of: Progress Note Date: 07/27/21 - Chief Complaint Chief Complaint: s/p diverting colostomy day2. feeling better today with less abdominal pain . bowel fistula is draining moderate amount . colostomy is not functioning yet . Hgb 8.9.. normal LFTs . 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 afebrile .. - Past Medical Family Social History Past Med/Fam/Surg Hx: No changes since H&P Allergies: Allergies No Known Drug Allergies Allergy (Verified 07/19/21 09:09) - Review Of Systems ROS: No change since H&P - Vital Signs Vital Signs: Temperature 97.7 F Pulse Rate [Right Brachial] 78 Pulse Rate [Apical] 72 Pulse Rate 79 Respiratory Rate 18 Blood Pressure [Right Arm] 146/66 Blood Pressure [Left Arm] 111/64 Blood Pressure 113/68 O2 Sat by Pulse Oximetry 99 - Physical Exam Oriented: Normal Eyes: Normal Ear: Normal Nose: Normal Throat: Normal Respiratory: Normal Cardiovascular: Normal : Normal GI:Auscultation: Normal GI:Palpation: Normal GI: Tenderness: Normal, Other (less cellulitis and erythema of lower abdominal wall ) Skin: Normal Musculoskeletal: Normal Psychiatric: Normal Mood Description: Calm Affect: Normal Speech Pattern: Clear, Appropriate - Laboratory and Diagnostics Result Diagrams: 07/27/21 05:05 07/27/21 05:05 Labs: 07/20/21 14:35 Abdomen Wound Gram Stain - Final 07/20/21 14:35 Abdomen Wound Culture - Final Staphylococcus Hyicus Streptococcus Anginosus 07/20/21 11:12 Abdomen Wound Gram Stain - Final 07/20/21 11:12 Abdomen Wound Culture - Final Escherichia Coli Staphylococcus Hyicus#3 Streptococcus Anginosus 07/21/21 11:10 Stool Stool Culture - Final 07/21/21 11:10 Stool - Final Laboratory WBC 4.9 X10^3/uL (3.6-10.0) 07/27/21 05:05 RBC 4.11 X10^6/uL (3.5-5.4) 07/27/21 05:05 Hgb 8.9 g/dL (12.0-16.0) L 07/27/21 05:05 Hct 28.7 % (36.0-47.0) L 07/27/21 05:05 MCV 69.8 fL (80.0-100.0) L 07/27/21 05:05 MCH 21.7 pg (27.0-34.0) L 07/27/21 05:05 MCHC 31.1 g/dL (33.0-35.0) L 07/27/21 05:05 RDW 24.4 % (11.6-16.5) H 07/27/21 05:05 Plt Count 278 X10^3/uL (150.0-450.0) 07/27/21 05:05 Plt Count Comment Adequate (ADEQUATE) 07/27/21 05:05 MPV 7.2 fL (7.4-11.0) L 07/27/21 05:05 Neut % (Auto) 70.0 % (42.0-75.0) 07/27/21 05:05 Lymph % (Auto) 17.7 % (21.0-51.0) L 07/27/21 05:05 [place] % (Auto) 11.3 % (0.0-13.0) 07/27/21 05:05 Eos % (Auto) 0.5 % (0.9-2.9) L 07/27/21 05:05 Baso % (Auto) 0.5 % (0.2-1.0) 07/27/21 05:05 Neut # (Auto) 3.4 x10^3/uL (2.2-4.8) 07/27/21 05:05 Lymph # (Auto) 0.9 X10^3/uL (1.3-2.9) L 07/27/21 05:05 [place] # (Auto) 0.6 x10^3/uL (0.3-0.8) 07/27/21 05:05 Eos # (Auto) 0.0 x10^3/uL (0.0-0.2) 07/27/21 05:05 Baso # (Auto) 0.0 X10^3/uL (0.0-0.1) 07/27/21 05:05 Absolute Nucleated RBC 0.1 /100WBC 07/27/21 05:05 Plt Morphology Comment Normal (NORMAL) 07/27/21 05:05 RBC Morphology Abnormal (NORMAL) A 07/27/21 05:05 Dimorphic RBCs Slight 07/27/21 05:05 Hypochromasia 2+ A 07/24/21 04:45 Poikilocytosis Slight A 07/19/21 09:49 Anisocytosis 3+ A 07/27/21 05:05 Microcytosis 1+ A 07/27/21 05:05 Target Cells Present 07/24/21 04:45 Stomatocytes Present 07/24/21 04:45 Sodium 144 mmol/L (136-145) 07/27/21 05:05 Corrected Sodium 146 mmol/L (136-145) H 07/27/21 05:05 Potassium 3.3 mmol/L (3.5-5.1) L 07/27/21 05:05 Chloride 108 mmol/L (98-107) H 07/27/21 05:05 Carbon Dioxide 26.9 mmol/L (21-32) 07/27/21 05:05 BUN 3 mg/dL (7-18) L 07/27/21 05:05 Creatinine 0.48 mg/dL (0.55-1.02) L 07/27/21 05:05 Est GFR (MDRD) Af Amer > 60 (>60) 07/27/21 05:05 Est GFR (MDRD) Non-Af > 60 (>60) 07/27/21 05:05 Glucose 174 mg/dL (65-99) H 07/27/21 05:05 POC Glucose (mg/dL) 100 mg/dL (65-99) H 07/27/21 12:11 Calcium 7.8 mg/dL (8.5-10.1) L 07/27/21 05:05 Corrected Calcium 9.2 mg/dL (8.5-10.1) 07/27/21 05:05 Magnesium 2.7 mg/dL (1.7-2.9) 07/26/21 06:13 Iron 9 ug/dL (50-175) L 07/21/21 05:29 Transferrin 100 mg/dL (202-364) L 07/21/21 05:29 Ferritin 184 ng/mL (8-252) 07/21/21 05:29 Total Bilirubin 0.50 mg/dL (0.2-1.0) 07/27/21 05:05 AST < 6 Units/L (15-37) L 07/27/21 05:05 ALT 10 Units/L (12-78) L 07/27/21 05:05 Alkaline Phosphatase 44 Units/L (46-116) L 07/27/21 05:05 Total Protein 6.1 g/dL (6.4-8.2) L 07/27/21 05:05 Albumin 2.2 g/dL (3.4-5.0) L 07/27/21 05:05 Globulin 3.9 g/dL (2.5-4.5) 07/27/21 05:05 Albumin/Globulin Ratio 0.6 Ratio (1.1-2.1) L 07/27/21 05:05 Lipase 57 Units/L (73-393) L 07/19/21 09:49 Carcinoembryonic Ag 72.0 ng/mL (0.0-3.0) H 07/20/21 07:42 Vitamin B12 1254 pg/mL (193-986) H 07/21/21 05:29 Folate 4.2 ng/mL (>8.6) L 07/21/21 05:29 HCG, Qual Negative <10 mIU/mL 07/19/21 09:49 Specimen Type Clean catch urine 07/19/21 19:09 Urine Color Dark yellow (YELLOW) 07/19/21 19:09 Urine Appearance Clear (CLEAR) 07/19/21 19:09 Urine pH 6.0 (5.0 - 8.0) 07/19/21 19:09 Ur Specific [place] 1.010 (1.000-1.030) 07/19/21 19:09 Urine Protein 3+ (NEGATIVE) 07/19/21 19:09 Urine Glucose (UA) Negative (NEGATIVE) 07/19/21 19:09 Urine Ketones 4+ (NEGATIVE) 07/19/21 19:09 Urine Occult Blood 4+ (NEGATIVE) 07/19/21 19:09 Urine Nitrite Negative (NEGATIVE) 07/19/21 19: Urine Bilirubin Negative (NEGATIVE) 07/19/21 19:09 Urine Urobilinogen 1+ (NORMAL) 07/19/21 19:09 Ur Leukocyte Esterase 1+ (NEGATIVE) 07/19/21 19:09 Urine RBC 5-10 /HPF (0-3) A 07/19/21 19:09 Urine WBC 5-10 /HPF (0-5) A 07/19/21 19:09 Ur Squamous Epith Cells Moderate /HPF (NEGATIVE) 07/19/21 19:09 Urine Bacteria Trace /HPF (NEGATIVE) 07/19/21 19:09 Ur Culture Indicated? No/not indicated 07/19/21 19:09 Stool Description 15g 07/21/21 11:10 Stool Description 15g 07/21/21 11:10 Stl Occult Blood (IFOB) Negative (NEGATIVE) 07/21/21 11:10 Stl C. diff Tox B Gene Negative (NEGATIVE) 07/21/21 11:10 Stl C. diff [id number] Presumptive negative (NEGATIVE) 07/21/21 11:10 Cryptosporid parvum Ag Negative (NEGATIVE) 07/21/21 11:10 Giardia lamblia Ag Negative (NEGATIVE) 07/21/21 11:10 SARS CoV-2 RNA Rapid DARIEL Positive (NEGATIVE) A 07/19/21 09:56 Tissue Pathology To follow 07/22/21 07:41 Blood Type O POSITIVE 07/23/21 10:37 Antibody Screen Negative 07/23/21 10:37 Crossmatch See Detail 07/23/21 10:37 - Assessment and Plan 1: s/p diverting colostomy .. 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 elevated CEA 72. anemia 2nd to bleeding colon tumor . entero cutaneous fistula . lower abdomen. DM . Covid 19 . to advance diet to soft diet .. oncology follow up . - Problem Patient Problems: Patient Problems Diabetes mellitus (Chronic) E11.9 COVID-19 (Acute) U07.1 Symptomatic anemia (Acute) D64.9 Abdominal mass, right lower quadrant (Acute) R19.03 Acute hypokalemia (Acute) E87.6 Anemia (Acute) D64.9
[2021-07-28] MEDS: MORPHINE SULFATE INJ 2 MG INJ IVP PRN ×2 (02:15→15:35)
[2021-07-28 06:13] LABS: BASOPHILS % (AUTO) 0.3 % (0.2-1.0); EOSINOPHILS % (AUTO) 0.7 % (0.9-2.9); HEMATOCRIT 27.2 % (36.0-47.0); HEMOGLOBIN 8.6 g/dL (12.0-16.0); LYMPHOCYTES # (AUTO) 0.9 X10^3/uL (1.3-2.9); LYMPHOCYTES % (AUTO) 16.7 % (21.0-51.0); MEAN CORPUSCULAR HGB CONC 31.5 g/dL (33.0-35.0); MEAN CORPUSCULAR VOLUME 69.8 fL (80.0-100.0); MEAN PLATELET VOLUME 7.5 fL (7.4-11.0); MONOCYTES # (AUTO) 0.6 x10^3/uL (0.3-0.8); MONOCYTES % (AUTO) 11.4 % (0.0-13.0); NEUTROPHILS # (AUTO) 3.6 x10^3/uL (2.2-4.8); NEUTROPHILS % (AUTO) 70.9 % (42.0-75.0); RED BLOOD COUNT 3.89 X10^6/uL (3.5-5.4); RED CELL DISTRIBUTION WIDTH 24.9 % (11.6-16.5); WHITE BLOOD COUNT 5.1 X10^3/uL (3.6-10.0)
[2021-07-28 06:29] LABS: ALANINE AMINOTRANSFERASE 10 Units/L (12-78); ALBUMIN 2.2 g/dL (3.4-5.0); ALKALINE PHOSPHATASE 47 Units/L (46-116); ASPARTATE AMINO TRANSFERASE 10 Units/L (15-37); BLOOD UREA NITROGEN 1 mg/dL (7-18); CALCIUM 8.2 mg/dL (8.5-10.1); CARBON DIOXIDE 25.2 mmol/L (21-32); CHLORIDE 109 mmol/L (98-107); COR CA(FOR HYPOALB) 9.6 mg/dL (8.5-10.1); COR NA(FOR HYPERGLY) 143 mmol/L (136-145); CREATININE 0.45 mg/dL (0.55-1.02); SODIUM 142 mmol/L (136-145); TOTAL PROTEIN 6.3 g/dL (6.4-8.2); eGFR NON BLACK RACES > 60 (>60)
[2021-07-28] MEDS: D5 1/2 NS 1,000 ML 1,000 ML IV SCH ×3 (06:33→23:00)
[2021-07-28 07:29] LABS: PLATELET MORPHOLOGY COMMENT NORMAL (NORMAL)
[2021-07-28 07:30] LABS: ANISOCYTOSIS 3+; MICROCYTOSIS 1+
[2021-07-28] MEDS: ALBUMIN HUMAN 25%- 100 ML 100 ML IV SCH ×2 (08:36→10:59)
[2021-07-28] MEDS: LEVAQUIN PREMIX IV 750 MG 750 MG/150 ML BAG IV SCH (08:38)
[2021-07-28] MEDS: PROTONIX INJ 40 MG VIAL IVP SCH (08:38)
--- NOTE | 2021-07-28 08:48 | DR.PROGNOT ---
Hospital Progress Notes - Progress Note for Day of: Progress Note Date: 07/28/21 - Chief Complaint Chief Complaint: s/p diverting colostomy day3. feeling better today with no abdominal pain . bowel fistula is draining moderate amount . colostomy is not functioning yet . Hgb 8.9.. normal LFTs . 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 afebrile .. - Past Medical Family Social History Past Med/Fam/Surg Hx: No changes since H&P Allergies: Allergies No Known Drug Allergies Allergy (Verified 07/19/21 09:09) - Review Of Systems ROS: No change since H&P - Vital Signs Vital Signs: Temperature 97.7 F Pulse Rate [Right Brachial] 81 Pulse Rate [Apical] 72 Pulse Rate 79 Respiratory Rate 18 Blood Pressure [Right Arm] 128/72 Blood Pressure [Left Arm] 111/64 Blood Pressure 113/68 O2 Sat by Pulse Oximetry 99 - Physical Exam Oriented: Normal Eyes: Normal Ear: Normal Nose: Normal Throat: Normal Respiratory: Normal Cardiovascular: Normal : Normal GI:Auscultation: Normal GI:Palpation: Normal GI: Tenderness: Normal, Other (less cellulitis and erythema of lower abdominal wall ) Skin: Normal Musculoskeletal: Normal Psychiatric: Normal Mood Description: Calm Affect: Normal Speech Pattern: Clear, Appropriate - Laboratory and Diagnostics Result Diagrams: 07/28/21 04:10 07/28/21 04:10 Labs: 07/20/21 14:35 Abdomen Wound Gram Stain - Final 07/20/21 14:35 Abdomen Wound Culture - Final Staphylococcus Hyicus Streptococcus Anginosus 07/20/21 11:12 Abdomen Wound Gram Stain - Final 07/20/21 11:12 Abdomen Wound Culture - Final Escherichia Coli Staphylococcus Hyicus#3 Streptococcus Anginosus 07/21/21 11:10 Stool Stool Culture - Final 07/21/21 11:10 Stool - Final Laboratory WBC 5.1 X10^3/uL (3.6-10.0) 07/28/21 04:10 RBC 3.89 X10^6/uL (3.5-5.4) 07/28/21 04:10 Hgb 8.6 g/dL (12.0-16.0) L 07/28/21 04:10 Hct 27.2 % (36.0-47.0) L 07/28/21 04:10 MCV 69.8 fL (80.0-100.0) L 07/28/21 04:10 MCH 22.0 pg (27.0-34.0) L 07/28/21 04:10 MCHC 31.5 g/dL (33.0-35.0) L 07/28/21 04:10 RDW 24.9 % (11.6-16.5) H 07/28/21 04:10 Plt Count 272 X10^3/uL (150.0-450.0) 07/28/21 04:10 Plt Count Comment Adequate (ADEQUATE) 07/28/21 04:10 MPV 7.5 fL (7.4-11.0) 07/28/21 04:10 Neut % (Auto) 70.9 % (42.0-75.0) 07/28/21 04:10 Lymph % (Auto) 16.7 % (21.0-51.0) L 07/28/21 04:10 [place] % (Auto) 11.4 % (0.0-13.0) 07/28/21 04:10 Eos % (Auto) 0.7 % (0.9-2.9) L 07/28/21 04:10 Baso % (Auto) 0.3 % (0.2-1.0) 07/28/21 04:10 Neut # (Auto) 3.6 x10^3/uL (2.2-4.8) 07/28/21 04:10 Lymph # (Auto) 0.9 X10^3/uL (1.3-2.9) L 07/28/21 04:10 [place] # (Auto) 0.6 x10^3/uL (0.3-0.8) 07/28/21 04:10 Eos # (Auto) 0.0 x10^3/uL (0.0-0.2) 07/28/21 04:10 Baso # (Auto) 0.0 X10^3/uL (0.0-0.1) 07/28/21 04:10 Absolute Nucleated RBC 0.1 /100WBC 07/28/21 04:10 Plt Morphology Comment Normal (NORMAL) 07/28/21 04:10 RBC Morphology Abnormal (NORMAL) A 07/28/21 04:10 Dimorphic RBCs Slight 07/28/21 04:10 Hypochromasia 2+ A 07/24/21 04:45 Poikilocytosis Slight A 07/19/21 09:49 Anisocytosis 3+ A 07/28/21 04:10 Microcytosis 1+ A 07/28/21 04:10 Target Cells Present 07/24/21 04:45 Stomatocytes Present 07/24/21 04:45 Sodium 142 mmol/L (136-145) 07/28/21 04:10 Corrected Sodium 143 mmol/L (136-145) 07/28/21 04:10 Potassium 4.0 mmol/L (3.5-5.1) 07/28/21 04:10 Chloride 109 mmol/L (98-107) H 07/28/21 04:10 Carbon Dioxide 25.2 mmol/L (21-32) 07/28/21 04:10 BUN 1 mg/dL (7-18) L 07/28/21 04:10 Creatinine 0.45 mg/dL (0.55-1.02) L 07/28/21 04:10 Est GFR (MDRD) Af Amer > 60 (>60) 07/28/21 04:10 Est GFR (MDRD) Non-Af > 60 (>60) 07/28/21 04:10 Glucose 151 mg/dL (65-99) H 07/28/21 04:10 POC Glucose (mg/dL) 142 mg/dL (65-99) H 07/27/21 19:04 Calcium 8.2 mg/dL (8.5-10.1) L 07/28/21 04:10 Corrected Calcium 9.6 mg/dL (8.5-10.1) 07/28/21 04:10 Magnesium 2.7 mg/dL (1.7-2.9) 07/26/21 06:13 Iron 9 ug/dL (50-175) L 07/21/21 05:29 Transferrin 100 mg/dL (202-364) L 07/21/21 05:29 Ferritin 184 ng/mL (8-252) 07/21/21 05:29 Total Bilirubin 0.50 mg/dL (0.2-1.0) 07/28/21 04:10 AST 10 Units/L (15-37) L 07/28/21 04:10 ALT 10 Units/L (12-78) L 07/28/21 04:10 Alkaline Phosphatase 47 Units/L (46-116) 07/28/21 04:10 Total Protein 6.3 g/dL (6.4-8.2) L 07/28/21 04:10 Albumin 2.2 g/dL (3.4-5.0) L 07/28/21 04:10 Globulin 4.1 g/dL (2.5-4.5) 07/28/21 04:10 Albumin/Globulin Ratio 0.5 Ratio (1.1-2.1) L 07/28/21 04:10 Lipase 57 Units/L (73-393) L 07/19/21 09:49 Carcinoembryonic Ag 72.0 ng/mL (0.0-3.0) H 07/20/21 07:42 Vitamin B12 1254 pg/mL (193-986) H 07/21/21 05:29 Folate 4.2 ng/mL (>8.6) L 07/21/21 05:29 HCG, Qual Negative <10 mIU/mL 07/19/21 09:49 Specimen Type Clean catch urine 07/19/21 19:09 Urine Color Dark yellow (YELLOW) 07/19/21 19:09 Urine Appearance Clear (CLEAR) 07/19/21 19:09 Urine pH 6.0 (5.0 - 8.0) 07/19/21 19:09 Ur Specific [place] 1.010 (1.000-1.030) 07/19/21 19:09 Urine Protein 3+ (NEGATIVE) 07/19/21 19:09 Urine Glucose (UA) Negative (NEGATIVE) 07/19/21 19:09 Urine Ketones 4+ (NEGATIVE) 07/19/21 19:09 Urine Occult Blood 4+ (NEGATIVE) 07/19/21 19:09 Urine Nitrite Negative (NEGATIVE) 07/19/21 19:09 Urine Bilirubin Negative (NEGATIVE) 07/19/21 19:09 Urine Urobilinogen 1+ (NORMAL) 07/19/21 19:09 Ur Leukocyte Esterase 1+ (NEGATIVE) 07/19/21 19:09 Urine RBC 5-10 /HPF (0-3) A 07/19/21 19:09 Urine WBC 5-10 /HPF (0-5) A 07/19/21 19:09 Ur Squamous Epith Cells Moderate /HPF (NEGATIVE) 07/19/21 19:09 Urine Bacteria Trace /HPF (NEGATIVE) 07/19/21 19:09 Ur Culture Indicated? No/not indicated 07/19/21 19:09 Stool Description 15g 07/21/21 11:10 Stool Description 15g 07/21/21 11:10 Stl Occult Blood (IFOB) Negative (NEGATIVE) 07/21/21 11:10 Stl C. diff Tox B Gene Negative (NEGATIVE) 07/21/21 11:10 Stl C. diff [id number]-BI Presumptive negative (NEGATIVE) 07/21/21 11:10 Cryptosporid parvum Ag Negative (NEGATIVE) 07/21/21 11:10 Giardia lamblia Ag Negative (NEGATIVE) 07/21/21 11:10 SARS CoV-2 RNA Rapid DARIEL Positive (NEGATIVE) A 07/19/21 09:56 Tissue Pathology To follow 07/22/21 07:41 Blood Type O POSITIVE 07/23/21 10:37 Antibody Screen Negative 07/23/21 10:37 Crossmatch See Detail 07/23/21 10:37 - Assessment and Plan 1: s/p diverting colostomy .. recto sigmoid cancer . anemia 2nd to bleeding colon tumor . entero cutaneous fistula . lower abdomen. DM . Covid 19 . to advance diet to soft diet .. oncology follow up . - Problem Patient Problems: Patient Problems Diabetes mellitus (Chronic) E11.9 COVID-19 (Acute) U07.1 Symptomatic anemia (Acute) D64.9 Abdominal mass, right lower quadrant (Acute) R19.03 Acute hypokalemia (Acute) E87.6 Anemia (Acute) D64.9
[2021-07-28] MEDS: ZOFRAN INJ 4 MG VIAL IVP PRN (10:59)
[2021-07-29 06:02] LABS: BASOPHILS % (AUTO) 0.6 % (0.2-1.0); EOSINOPHILS # (AUTO) 0.1 x10^3/uL (0.0-0.2); EOSINOPHILS % (AUTO) 1.6 % (0.9-2.9); HEMATOCRIT 26.9 % (36.0-47.0); HEMOGLOBIN 8.5 g/dL (12.0-16.0); LYMPHOCYTES % (AUTO) 23.3 % (21.0-51.0); MEAN CORPUSCULAR HGB CONC 31.7 g/dL (33.0-35.0); MEAN CORPUSCULAR VOLUME 69.4 fL (80.0-100.0); MONOCYTES # (AUTO) 0.5 x10^3/uL (0.3-0.8); MONOCYTES % (AUTO) 10.2 % (0.0-13.0); NEUTROPHILS # (AUTO) 2.8 x10^3/uL (2.2-4.8); NEUTROPHILS % (AUTO) 64.3 % (42.0-75.0); RED BLOOD COUNT 3.87 X10^6/uL (3.5-5.4); RED CELL DISTRIBUTION WIDTH 24.1 % (11.6-16.5); WHITE BLOOD COUNT 4.4 X10^3/uL (3.6-10.0)
[2021-07-29 06:07] LABS: ALANINE AMINOTRANSFERASE 8 Units/L (12-78); ALBUMIN 2.4 g/dL (3.4-5.0); ALKALINE PHOSPHATASE 45 Units/L (46-116); ASPARTATE AMINO TRANSFERASE 16 Units/L (15-37); BLOOD UREA NITROGEN 1 mg/dL (7-18); CALCIUM 8.1 mg/dL (8.5-10.1); CARBON DIOXIDE 26.5 mmol/L (21-32); CHLORIDE 110 mmol/L (98-107); COR CA(FOR HYPOALB) 9.4 mg/dL (8.5-10.1); COR NA(FOR HYPERGLY) 142 mmol/L (136-145); CREATININE 0.46 mg/dL (0.55-1.02); SODIUM 141 mmol/L (136-145); TOTAL PROTEIN 6.1 g/dL (6.4-8.2); eGFR NON BLACK RACES > 60 (>60)
[2021-07-29 06:44] LABS: MICROCYTOSIS 1+; PLATELET MORPHOLOGY COMMENT NORMAL (NORMAL)
[2021-07-29 06:45] LABS: ANISOCYTOSIS 3+
[2021-07-29] MEDS: LEVAQUIN PREMIX IV 750 MG 750 MG/150 ML BAG IV SCH (08:42)
[2021-07-29] MEDS: ALBUMIN HUMAN 25%- 100 ML 100 ML IV SCH (08:42)
[2021-07-29] MEDS: PROTONIX INJ 40 MG VIAL IVP SCH (08:43)
--- NOTE | 2021-07-29 08:49 | PCM.PROG ---
Progress Note Progress Note for Day of Date of Exam: 07/28/21 Subjective Subjective: Pt is a 41 year old female past medical history of DMT2. 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 This morning she is post colostomy day #3. For her anemia, she has received a total of four units of packed red blood cells since admission. Her hemoglobin has stabilized. This morning she reports some abdominal discomfort. She tolerated full liquid diet and will be transitioned to soft diet today. Labs/imaging: wbc 5.1, hgb 8.6, plt 272, sodium 142, potassium 4.0, creatinine 0.45, glucose 151, Abdominal wound culture positive for growth of e.coli, strep anginosus, staph hyicus. Stool culture is NGTD. Continue current treatments of: D51/2ns at 75 ml/hr, IV Levaquin 750mg, duonebs q6h prn, tussionex 5ml po q12h prn, morphine 2mg iv q4h prn, Zofran 4mg iv q8h prn, otbs achs, humulin r sliding scale, Tylenol 650mg po q6h prn. Continue Albumin 25% iv daily. Will advance diet per surgery recommendations. Pathology results: villous adenoma with high grade dysplasia. Will need oncology follow up when discharged. Otherwise continue with current treatment plan today. General surgery following. Continue to closely monitor and follow up labs/imaging. Past Medical Family Social History Past Med/Fam/Surg Hx: No changes since H&P Allergies: Allergies No Known Drug Allergies Allergy (Verified 07/19/21 09:09) Review of Systems ROS: No change since H&P Vital Signs and I&O's Vital Signs: Temperature 98.2 F Pulse Rate [Right Brachial] 76 Pulse Rate [Apical] 72 Pulse Rate 79 Respiratory Rate 20 Blood Pressure [Right Arm] 146/70 Blood Pressure [Left Arm] 111/64 Blood Pressure 113/68 O2 Sat by Pulse Oximetry 97 Intake and Output: Intake & Output 07/26/21 07/27/21 07/28/21 07/29/21 23:59 23:59 23:59 23:59 Intake Total 4556 / 4556 4213 / 4213 3675 / 3675 1075 / 1075 Output Total 1820 / 1820 875 / 875 100 / 100 70 / 70 Balance 2736 / 2736 3338 / 3338 3575 / 3575 1005 / 1005 Physical Exam Oriented: Normal Eyes: Normal Ear: Normal Nose: Normal Throat: Normal Respiratory: Normal Cardiovascular: Normal : Normal Auscultation: Bowel Sounds: Normal Tenderness: Normal and Other (less cellulitis and erythema of lower abdominal wall ) Skin: Normal Musculoskeletal: Normal Psychiatric: Normal Mood Description: Calm Affect: Normal Speech Pattern: Clear and Appropriate Laboratory and Diagnostics Result Diagrams: 07/29/21 05:00 07/29/21 05:00 Labs: 07/20/21 14:35 Abdomen Wound Gram Stain - Final 07/20/21 14:35 Abdomen Wound Culture - Final Staphylococcus Hyicus Streptococcus Anginosus 07/20/21 11:12 Abdomen Wound Gram Stain - Final 07/20/21 11:12 Abdomen Wound Culture - Final Escherichia Coli Staphylococcus Hyicus#3 Streptococcus Anginosus 07/21/21 11:10 Stool Stool Culture - Final 07/21/21 11:10 Stool - Final Laboratory WBC 4.4 X10^3/uL (3.6-10.0) 07/29/21 05:00 RBC 3.87 X10^6/uL (3.5-5.4) 07/29/21 05:00 Hgb 8.5 g/dL (12.0-16.0) L 07/29/21 05:00 Hct 26.9 % (36.0-47.0) L 07/29/21 05:00 MCV 69.4 fL (80.0-100.0) L 07/29/21 05:00 MCH 22.0 pg (27.0-34.0) L 07/29/21 05:00 MCHC 31.7 g/dL (33.0-35.0) L 07/29/21 05:00 RDW 24.1 % (11.6-16.5) H 07/29/21 05:00 Plt Count 212 X10^3/uL (150.0-450.0) 07/29/21 05:00 Plt Count Comment Adequate (ADEQUATE) 07/29/21 05:00 MPV 8.0 fL (7.4-11.0) 07/29/21 05:00 Neut % (Auto) 64.3 % (42.0-75.0) 07/29/21 05:00 Lymph % (Auto) 23.3 % (21.0-51.0) 07/29/21 05:00 [place] % (Auto) 10.2 % (0.0-13.0) 07/29/21 05:00 Eos % (Auto) 1.6 % (0.9-2.9) 07/29/21 05:00 Baso % (Auto) 0.6 % (0.2-1.0) 07/29/21 05:00 Neut # (Auto) 2.8 x10^3/uL (2.2-4.8) 07/29/21 05:00 Lymph # (Auto) 1.0 X10^3/uL (1.3-2.9) L 07/29/21 05:00 [place] # (Auto) 0.5 x10^3/uL (0.3-0.8) 07/29/21 05:00 Eos # (Auto) 0.1 x10^3/uL (0.0-0.2) 07/29/21 05:00 Baso # (Auto) 0.0 X10^3/uL (0.0-0.1) 07/29/21 05:00 Absolute Nucleated RBC 0.1 /100WBC 07/29/21 05:00 Plt Morphology Comment Normal (NORMAL) 07/29/21 05:00 RBC Morphology Abnormal (NORMAL) A 07/29/21 05:00 Dimorphic RBCs Slight 07/29/21 05:00 Hypochromasia 2+ A 07/24/21 04:45 Poikilocytosis Slight A 07/19/21 09:49 Anisocytosis 3+ A 07/29/21 05:00 Microcytosis 1+ A 07/29/21 05:00 Target Cells Present 07/24/21 04:45 Stomatocytes Present 07/24/21 04:45 Sodium 141 mmol/L (136-145) 07/29/21 05:00 Corrected Sodium 142 mmol/L (136-145) 07/29/21 05:00 Potassium 3.8 mmol/L (3.5-5.1) 07/29/21 05:00 Chloride 110 mmol/L (98-107) H 07/29/21 05:00 Carbon Dioxide 26.5 mmol/L (21-32) 07/29/21 05:00 BUN 1 mg/dL (7-18) L 07/29/21 05:00 Creatinine 0.46 mg/dL (0.55-1.02) L 07/29/21 05:00 Est GFR (MDRD) Af Amer > 60 (>60) 07/29/21 05:00 Est GFR (MDRD) Non-Af > 60 (>60) 07/29/21 05:00 Glucose 141 mg/dL (65-99) H 07/29/21 05:00 POC Glucose (mg/dL) 146 mg/dL (65-99) H 07/28/21 20:45 Calcium 8.1 mg/dL (8.5-10.1) L 07/29/21 05:00 Corrected Calcium 9.4 mg/dL (8.5-10.1) 07/29/21 05:00 Magnesium 2.2 mg/dL (1.7-2.9) 07/29/21 05:00 Iron 9 ug/dL (50-175) L 07/21/21 05:29 Transferrin 100 mg/dL (202-364) L 07/21/21 05:29 Ferritin 184 ng/mL (8-252) 07/21/21 05:29 Total Bilirubin 0.50 mg/dL (0.2-1.0) 07/29/21 05:00 AST 16 Units/L (15-37) 07/29/21 05:00 ALT 8 Units/L (12-78) L 07/29/21 05:00 Alkaline Phosphatase 45 Units/L (46-116) L 07/29/21 05:00 Total Protein 6.1 g/dL (6.4-8.2) L 07/29/21 05:00 Albumin 2.4 g/dL (3.4-5.0) L 07/29/21 05:00 Globulin 3.7 g/dL (2.5-4.5) 07/29/21 05:00 Albumin/Globulin Ratio 0.6 Ratio (1.1-2.1) L 07/29/21 05:00 Lipase 57 Units/L (73-393) L 07/19/21 09:49 Carcinoembryonic Ag 72.0 ng/mL (0.0-3.0) H 07/20/21 07:42 Vitamin B12 1254 pg/mL (193-986) H 07/21/21 05:29 Folate 4.2 ng/mL (>8.6) L 07/21/21 05:29 HCG, Qual Negative <10 mIU/mL 07/19/21 09:49 Specimen Type Clean catch urine 07/19/21 19:09 Urine Color Dark yellow (YELLOW) 07/19/21 19:09 Urine Appearance Clear (CLEAR) 07/19/21 19:09 Urine pH 6.0 (5.0 - 8.0) 07/19/21 19:09 Ur Specific [place] 1.010 (1.000-1.030) 07/19/21 19:09 Urine Protein 3+ (NEGATIVE) 07/19/21 19:09 Urine Glucose (UA) Negative (NEGATIVE) 07/19/21 19:09 Urine Ketones 4+ (NEGATIVE) 07/19/21 19:09 Urine Occult Blood 4+ (NEGATIVE) 07/19/21 19:09 Urine Nitrite Negative (NEGATIVE) 07/19/21 19:09 Urine Bilirubin Negative (NEGATIVE) 07/19/21 19:09 Urine Urobilinogen 1+ (NORMAL) 07/19/21 19:09 Ur Leukocyte Esterase 1+ (NEGATIVE) 07/19/21 19:09 Urine RBC 5-10 /HPF (0-3) A 07/19/21 19:09 Urine WBC 5-10 /HPF (0-5) A 07/19/21 19:09 Ur Squamous Epith Cells Moderate /HPF (NEGATIVE) 07/19/21 19:09 Urine Bacteria Trace /HPF (NEGATIVE) 07/19/21 19:09 Ur Culture Indicated? No/not indicated 07/19/21 19:09 Stool Description 15g 07/21/21 11:10 Stool Description 15g 07/21/21 11:10 Stl Occult Blood (IFOB) Negative (NEGATIVE) 07/21/21 11:10 Stl C. diff Tox B Gene Negative (NEGATIVE) 07/21/21 11:10 Stl C. diff [id number]-BI Presumptive negative (NEGATIVE) 07/21/21 11:10 Cryptosporid parvum Ag Negative (NEGATIVE) 07/21/21 11:10 Giardia lamblia Ag Negative (NEGATIVE) 07/21/21 11:10 SARS CoV-2 RNA Rapid DARIEL Positive (NEGATIVE) A 07/19/21 09:56 Tissue Pathology To follow 07/22/21 07:41 Blood Type O POSITIVE 07/23/21 10:37 Antibody Screen Negative 07/23/21 10:37 Crossmatch See Detail 07/23/21 10:37 Plan (1) Abdominal mass, right lower quadrant: Status: Acute Plan: surgery consult, continue IV antibiotics, IV fluids, pain management, otbs achs, ssi. (2) Symptomatic anemia: Status: Acute Plan: transfuse prbc (3) Acute hypokalemia: Status: Acute (4) COVID-19: Status: Acute (5) Diabetes mellitus: Status: Chronic Qualifiers: Diabetes mellitus complication status: with hyperglycemia Diabetes mellitus environmental epidemiologist insulin use: with residential use Diabetes mellitus type: type 2 Qualified Code(s): E11.65 - Type 2 diabetes mellitus with hyperglycemia; Z79.4 - card tender (current) use of insulin
[2021-07-29 09:51] VITALS: BP 152/63
[2021-07-29] MEDS: ZOFRAN INJ 4 MG VIAL IVP PRN (12:05)
[2021-07-29] MEDS: D5 1/2 NS 1,000 ML 1,000 ML IV SCH (12:05)
--- NOTE | 2021-07-29 18:38 | W.DIS.FURT ---
Summary of Discharge Discharge Summary of Date Date of Exam: 07/29/21 Admission Date Date of Admission: 07/19/21 Admission Diagnosis Patient Problems (Updated 07/22/21 @ 11:27 by Saurav Acuña) Diabetes mellitus (Chronic) E11.9 COVID-19 (Acute) U07.1 Symptomatic anemia (Acute) D64.9 Abdominal mass, right lower quadrant (Acute) R19.03 Acute hypokalemia (Acute) E87.6 Anemia (Acute) D64.9 Hospital Course: Pt is a 41 year old female past medical history of DMT2. 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 Patient underwent colonoscopy and was found to have colon mass that was biopsied. She did have colostomy by surgery that was functioning on discharge and received a total of four units of packed red blood cells for anemia. Her hemoglobin stabilized. Abdominal wound culture positive for growth of e.coli, strep anginosus, staph hyicus. Her other treatments included: D51/2ns at 75 ml/hr, IV Levaquin 750mg, duonebs q6h prn, tussionex 5ml po q12h prn, morphine 2mg iv q4h prn, Zofran 4mg iv q8h prn, otbs achs, humulin r sliding scale, Tylenol 650mg po q6h prn. Albumin 25% iv daily. Patient responded well to treatments. Pathology results: villous adenoma with high grade dysplasia. Pt discharged in stable condition. She will be referred to oncology and instructed to follow up with pcp, general surgery, and oncology. Vital Signs: Vital Signs (72 hours) 07/26/21 20:00 07/27/21 00:00 07/27/21 03:28 Temperature 97.7 F 97.6 F Pulse Rate [Right Brachial] 75 74 Respiratory Rate 22 20 18 Blood Pressure [Right Arm] 123/67 123/82 O2 Sat by Pulse Oximetry 97 97 07/27/21 03:58 07/27/21 04:00 07/27/21 08:00 Temperature 97.7 F 98.3 F Pulse Rate [Right Brachial] 80 77 Respiratory Rate 16 22 20 Blood Pressure [Right Arm] 138/71 134/65 O2 Sat by Pulse Oximetry 96 95 07/27/21 08:35 07/27/21 09:05 07/27/21 12:00 Temperature 97.7 F Pulse Rate [Right Brachial] 78 Respiratory Rate 18 20 18 Blood Pressure [Right Arm] 146/66 O2 Sat by Pulse Oximetry 99 07/27/21 12:59 07/27/21 13:29 07/27/21 16:00 Temperature 97.6 F Pulse Rate [Right Brachial] 82 Respiratory Rate 18 18 18 Blood Pressure [Right Arm] 139/69 O2 Sat by Pulse Oximetry 97 07/27/21 20:00 07/27/21 20:13 07/27/21 20:43 Temperature 97.7 F Pulse Rate [Right Brachial] 83 Respiratory Rate 20 18 18 Blood Pressure [Right Arm] 126/70 O2 Sat by Pulse Oximetry 99 07/28/21 00:00 07/28/21 02:15 07/28/21 02:45 Temperature 97.6 F Pulse Rate [Right Brachial] 81 Respiratory Rate 18 20 20 Blood Pressure [Right Arm] 127/76 O2 Sat by Pulse Oximetry 97 07/28/21 04:00 07/28/21 08:00 07/28/21 08:32 Temperature 97.7 F 97.7 F Pulse Rate [Right Brachial] 81 90 Respiratory Rate 18 18 Blood Pressure [Right Arm] 128/72 122/61 O2 Sat by Pulse Oximetry 96 99 99 07/28/21 12:00 07/28/21 15:35 07/28/21 16:00 Temperature 98.0 F 97.8 F Pulse Rate [Right Brachial] 86 72 Respiratory Rate 20 20 18 Blood Pressure [Right Arm] 124/74 138/78 O2 Sat by Pulse Oximetry 99 98 07/28/21 16:05 07/28/21 20:00 07/29/21 00:00 Temperature 97.9 F 98.1 F Pulse Rate [Right Brachial] 77 81 Respiratory Rate 20 20 18 Blood Pressure [Right Arm] 145/73 132/71 O2 Sat by Pulse Oximetry 96 97 07/29/21 04:00 07/29/21 08:00 Temperature 98.2 F 98.1 F Pulse Rate [Right Brachial] 76 73 Respiratory Rate 20 20 Blood Pressure [Right Arm] 146/70 152/63 O2 Sat by Pulse Oximetry 97 97 Labs: Laboratory Last Values WBC 4.4 X10^3/uL (3.6-10.0) 07/29/21 05:00 RBC 3.87 X10^6/uL (3.5-5.4) 07/29/21 05:00 Hgb 8.5 g/dL (12.0-16.0) L 07/29/21 05:00 Hct 26.9 % (36.0-47.0) L 07/29/21 05:00 MCV 69.4 fL (80.0-100.0) L 07/29/21 05:00 MCH 22.0 pg (27.0-34.0) L 07/29/21 05:00 MCHC 31.7 g/dL (33.0-35.0) L 07/29/21 05:00 RDW 24.1 % (11.6-16.5) H 07/29/21 05:00 Plt Count 212 X10^3/uL (150.0-450.0) 07/29/21 05:00 Plt Count Comment Adequate (ADEQUATE) 07/29/21 05:00 MPV 8.0 fL (7.4-11.0) 07/29/21 05:00 Neut % (Auto) 64.3 % (42.0-75.0) 07/29/21 05:00 Lymph % (Auto) 23.3 % (21.0-51.0) 07/29/21 05:00 [place] % (Auto) 10.2 % (0.0-13.0) 07/29/21 05:00 Eos % (Auto) 1.6 % (0.9-2.9) 07/29/21 05:00 Baso % (Auto) 0.6 % (0.2-1.0) 07/29/21 05:00 Neut # (Auto) 2.8 x10^3/uL (2.2-4.8) 07/29/21 05:00 Lymph # (Auto) 1.0 X10^3/uL (1.3-2.9) L 07/29/21 05:00 [place] # (Auto) 0.5 x10^3/uL (0.3-0.8) 07/29/21 05:00 Eos # (Auto) 0.1 x10^3/uL (0.0-0.2) 07/29/21 05:00 Baso # (Auto) 0.0 X10^3/uL (0.0-0.1) 07/29/21 05:00 Absolute Nucleated RBC 0.1 /100WBC 07/29/21 05:00 Plt Morphology Comment Normal (NORMAL) 07/29/21 05:00 RBC Morphology Abnormal (NORMAL) A 07/29/21 05:00 Dimorphic RBCs Slight 07/29/21 05:00 Hypochromasia 2+ A 07/24/21 04:45 Poikilocytosis Slight A 07/19/21 09:49 Anisocytosis 3+ A 07/29/21 05:00 Microcytosis 1+ A 07/29/21 05:00 Target Cells Present 07/24/21 04:45 Stomatocytes Present 07/24/21 04:45 Sodium 141 mmol/L (136-145) 07/29/21 05:00 Corrected Sodium 142 mmol/L (136-145) 07/29/21 05:00 Potassium 3.8 mmol/L (3.5-5.1) 07/29/21 05:00 Chloride 110 mmol/L (98-107) H 07/29/21 05:00 Carbon Dioxide 26.5 mmol/L (21-32) 07/29/21 05:00 BUN 1 mg/dL (7-18) L 07/29/21 05:00 Creatinine 0.46 mg/dL (0.55-1.02) L 07/29/21 05:00 Est GFR (MDRD) Af Amer > 60 (>60) 07/29/21 05:00 Est GFR (MDRD) Non-Af > 60 (>60) 07/29/21 05:00 Glucose 141 mg/dL (65-99) H 07/29/21 05:00 POC Glucose (mg/dL) 146 mg/dL (65-99) H 07/28/21 20:45 Calcium 8.1 mg/dL (8.5-10.1) L 07/29/21 05:00 Corrected Calcium 9.4 mg/dL (8.5-10.1) 07/29/21 05:00 Magnesium 2.2 mg/dL (1.7-2.9) 07/29/21 05:00 Iron 9 ug/dL (50-175) L 07/21/21 05:29 Transferrin 100 mg/dL (202-364) L 07/21/21 05:29 Ferritin 184 ng/mL (8-252) 07/21/21 05:29 Total Bilirubin 0.50 mg/dL (0.2-1.0) 07/29/21 05:00 AST 16 Units/L (15-37) 07/29/21 05:00 ALT 8 Units/L (12-78) L 07/29/21 05:00 Alkaline Phosphatase 45 Units/L (46-116) L 07/29/21 05:00 Total Protein 6.1 g/dL (6.4-8.2) L 07/29/21 05:00 Albumin 2.4 g/dL (3.4-5.0) L 07/29/21 05:00 Globulin 3.7 g/dL (2.5-4.5) 07/29/21 05:00 Albumin/Globulin Ratio 0.6 Ratio (1.1-2.1) L 07/29/21 05:00 Lipase 57 Units/L (73-393) L 07/19/21 09:49 Carcinoembryonic Ag 72.0 ng/mL (0.0-3.0) H 07/20/21 07:42 Vitamin B12 1254 pg/mL (193-986) H 07/21/21 05:29 Folate 4.2 ng/mL (>8.6) L 07/21/21 05:29 HCG, Qual Negative <10 mIU/mL 07/19/21 09:49 Specimen Type Clean catch urine 07/19/21 19:09 Urine Color Dark yellow (YELLOW) 07/19/21 19:09 Urine Appearance Clear (CLEAR) 07/19/21 19:09 Urine pH 6.0 (5.0 - 8.0) 07/19/21 19:09 Ur Specific [place] 1.010 (1.000-1.030) 07/19/21 19:09 Urine Protein 3+ (NEGATIVE) 07/19/21 19:09 Urine Glucose (UA) Negative (NEGATIVE) 07/19/21 19:09 Urine Ketones 4+ (NEGATIVE) 07/19/21 19:09 Urine Occult Blood 4+ (NEGATIVE) 07/19/21 19:09 Urine Nitrite Negative (NEGATIVE) 07/19/21 19:09 Urine Bilirubin Negative (NEGATIVE) 07/19/21 19:09 Urine Urobilinogen 1+ (NORMAL) 07/19/21 19:09 Ur Leukocyte Esterase 1+ (NEGATIVE) 07/19/21 19:09 Urine RBC 5-10 /HPF (0-3) A 07/19/21 19:09 Urine WBC 5-10 /HPF (0-5) A 07/19/21 19:09 Ur Squamous Epith Cells Moderate /HPF (NEGATIVE) 07/19/21 19:09 Urine Bacteria Trace /HPF (NEGATIVE) 07/19/21 19:09 Ur Culture Indicated? No/not indicated 07/19/21 19:09 Stool Description 15g 07/21/21 11:10 Stool Description 15g 07/21/21 11:10 Stl Occult Blood (IFOB) Negative (NEGATIVE) 07/21/21 11:10 Stl C. diff Tox B Gene Negative (NEGATIVE) 07/21/21 11:10 Stl C. diff [id number] Presumptive negative (NEGATIVE) 07/21/21 11:10 Cryptosporid parvum Ag Negative (NEGATIVE) 07/21/21 11:10 Giardia lamblia Ag Negative (NEGATIVE) 07/21/21 11:10 SARS CoV-2 RNA Rapid DARIEL Positive (NEGATIVE) A 07/19/21 09:56 Tissue Pathology To follow 07/22/21 07:41 Blood Type O POSITIVE 07/23/21 10:37 Antibody Screen Negative 07/23/21 10:37 Crossmatch See Detail 07/23/21 10:37 Reason For Visit: HYPOKALEMIA, ANEMIA, R ABDOMINAL MASS Discharge Date Discharge Date: 07/29/21 Discharge Diagnosis All Active Problems (Updated 07/22/21 @ 11:27 by Saurav Acuña) Diabetes mellitus (Chronic) Abdominal abscess (Acute) COVID-19 (Acute) Symptomatic anemia (Acute) Abdominal mass, right lower quadrant (Acute) Acute hypokalemia (Acute) Anemia (Acute) Folic acid deficiency (Acute) MILVIA (iron deficiency anemia) (Acute) Febrile illness (Acute) Viral illness (Acute) Dehydration (Acute) Sinus tachycardia (Acute) Hyperglycemia (Acute) New onset type 2 diabetes mellitus (Acute) Hyponatremia (Acute) Plan of Treatment: Continue with present treatment and follow up plan. Pt is to keep follow up appointment as instructed and take medications as ordered. Discharge Medications Discharge Medications: No Known Drug Allergies Allergy (Verified 07/19/21 09:09) CONTINUE taking the following medications glipizide 2.5 mg PO DAILY 07/19/21 [History] ivermectin 12 mg PO HS 07/19/21 [History] Follow up and Referral Follow Up: 1 Week Discharge Disposition Assessment: No acute distress noted at time of discharge. Discharge Disposition: Home Discharge Condition: Stable Discharge Plan Discharge Plan Hospital Course: Pt is a 41 year old female past medical history of DMT2. 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 Patient underwent colonoscopy and was found to have colon mass that was biopsied. She did have colostomy by surgery that was functioning on discharge and received a total of four units of packed red blood cells for anemia. Her hemoglobin stabilized. Abdominal wound culture positive for growth of e.coli, strep anginosus, staph hyicus. Her other treatments included: D51/2ns at 75 ml/hr, IV Levaquin 750mg, duonebs q6h prn, tussionex 5ml po q12h prn, morphine 2mg iv q4h prn, Zofran 4mg iv q8h prn, otbs achs, humulin r sliding scale, Tylenol 650mg po q6h prn. Albumin 25% iv daily. Patient responded well to treatments. Pathology results: villous adenoma with high grade dysplasia. Pt discharged in stable condition. She will be referred to oncology and instructed to follow up with pcp, general surgery, and oncology. Patient Disposition: 01 HOME, SELF-CARE Condition: Stable Health Concerns: Post Hospitalization: new medications and changes needed to prevent readmission or further decline. Pt educated and given instructions on all concerns. Care Plan Goals: Problem: Infection Goal: Temperature within normal limits. Resolved infection. Instructions: Follow provided instructions. Follow up with primary physician as directed. Contact primary care physician or report to the closest Emergency Room if condition worsens. Plan of Treatment: Continue with present treatment and follow up plan. Pt is to keep follow up appointment as instructed and take medications as ordered. Assessment: No acute distress noted at time of discharge. Prescriptions: Continued ivermectin 3 mg Tablet 12 mg PO HS RF: 0 glipizide 2.5 mg Tablet Extended Release 24 Hr 2.5 mg PO DAILY RF: 0 Follow ups/Referrals Follow ups/Referrals: MATHEW ANDRADE [REFERRING] - 1 WEEK (Referral made. Office will notify patient of appointment day and time.) TARYN RODRIGUES [STAFF PHYSICIAN] - 08/04/21 10:00 am BRIDGETT WOODY [Primary Care Provider] - 08/08/21 10:30 am Instructions Instructions: Anemia, Colostomy Home Guide, Adult, Colonoscopy, Adult, Care After, [id number], Dehydration, Adult, [id number], Colostomy Surgery, Adult, Care After, Prone Position Therapy, How to Wear and Take Off Your Mask - [facility] (09/16/2020), Colostomy With Mucous Fistula, 10 Things You Can Do to Manage Your COVID-19 Symptoms at Home - [facility] (12/17/2019), Type 2 Diabetes Mellitus, Diagnosis, Adult, [id number], Iron Deficiency Anemia, Adult, [id number] Stand Alone Forms: Precautions for COVID19, [facility], Patient Portal, Social Distancing
== END 2021-07-29 12:34 | disposition home or self-care (01) | DRG 329 ==
LOC: ER 09:09 → OBS 12:31 → MED/SURG 07-20 14:54
PROVIDERS: ADMIT Family Medicine; ATTEND Family Medicine
PROC: SIGMOID (2021-07-20 09:50)

== ENCOUNTER 2021-10-26 09:45 | Observation (INO) ==
[2021-10-26] MEDS ORDERED: NovoLIN R (or HumuLIN R) SUBCUT PRN (10:39)
[2021-10-26 10:52] VITALS: BMI 28.9
[2021-10-26] MEDS: INVanz INJ 1 GRAM VIAL 1 G in NS 100 ML IV 100 ML IV SCH (11:32)
[2021-10-26] MEDS: ZOFRAN INJ 4 MG VIAL IVP PRN ×3 (11:32→22:41)
[2021-10-26] MEDS: NS 1,000 ML IV 1,000 ML IV SCH ×2 (11:32→19:18)
[2021-10-26 11:36] LABS: BASOPHILS % (AUTO) 0.8 % (0.2-1.0); EOSINOPHILS # (AUTO) 0.1 x10^3/uL (0.0-0.2); EOSINOPHILS % (AUTO) 2.3 % (0.9-2.9); HEMATOCRIT 30.7 % (36.0-47.0); HEMOGLOBIN 10.2 g/dL (12.0-16.0); LYMPHOCYTES # (AUTO) 0.6 X10^3/uL (1.3-2.9); LYMPHOCYTES % (AUTO) 18.7 % (21.0-51.0); MEAN CORPUSCULAR HEMOGLOBIN 25.1 pg (27.0-34.0); MEAN CORPUSCULAR HGB CONC 33.1 g/dL (33.0-35.0); MEAN CORPUSCULAR VOLUME 75.8 fL (80.0-100.0); MEAN PLATELET VOLUME 7.7 fL (7.4-11.0); MONOCYTES # (AUTO) 0.7 x10^3/uL (0.3-0.8); MONOCYTES % (AUTO) 22.1 % (0.0-13.0); NEUTROPHILS # (AUTO) 1.8 x10^3/uL (2.2-4.8); NEUTROPHILS % (AUTO) 56.1 % (42.0-75.0); RED BLOOD COUNT 4.05 X10^6/uL (3.5-5.4); RED CELL DISTRIBUTION WIDTH 18.8 % (11.6-16.5); WHITE BLOOD COUNT 3.2 X10^3/uL (3.6-10.0)
[2021-10-26 11:51] LABS: ALANINE AMINOTRANSFERASE 14 Units/L (12-78); ALBUMIN 2.5 g/dL (3.4-5.0); ALKALINE PHOSPHATASE 90 Units/L (46-116); ASPARTATE AMINO TRANSFERASE 19 Units/L (15-37); BLOOD UREA NITROGEN 13 mg/dL (7-18); CARBON DIOXIDE 24.7 mmol/L (21-32); CHLORIDE 100 mmol/L (98-107); COR CA(FOR HYPOALB) 10.2 mg/dL (8.5-10.1); COR NA(FOR HYPERGLY) 135 mmol/L (136-145); CREATININE 0.79 mg/dL (0.55-1.02); SODIUM 134 mmol/L (136-145); eGFR NON BLACK RACES > 60 (>60)
[2021-10-26 12:02] LABS: BAND NEUTROPHILS % 8 % (0-10); METAMYELOCYTES % 2; MYELOCYTES % 3
[2021-10-26 12:03] LABS: ANISOCYTOSIS SLIGHT; HYPOCHROMASIA SLIGHT; PLATELET MORPHOLOGY COMMENT NORMAL (NORMAL)
[2021-10-26 12:07] LABS: SERUM PREGNANCY TEST, QUAL NEGATIVE <10 mIU/mL
[2021-10-26 12:45] LABS: APPEARANCE,URINE CLEAR (CLEAR); BACTERIA,URINE TRACE /HPF (NEGATIVE); COLOR,URINE ORANGE (YELLOW); RBC,URINE 30-50 /HPF (0-3); SQUAMOUS EPITHELIAL CELL,UR MODERATE /HPF (NEGATIVE)
--- NOTE | 2021-10-26 13:11 | RAD ---
HISTORYNausea vomitingSTUDYKUBCOMPARISONCT abdomen 09/05/2021FINDINGSIntestinal gas pattern is nonobstructing and nonspecific. No focal ileus identified. No organ enlargement is identified although the spleen is prominent. There is no evidence for ascites or abnormal calcification.IMPRESSIONNo acute intestinal abnormality identified.Electronically signed by: JAVIER WILKINS (October 26, 2021 13:09:53)
[2021-10-26] MEDS: NORCO 5/325 MG TAB PO PRN ×3 (13:16→22:10)
[2021-10-26] MEDS: PYRIDIUM PO PRN ×2 (15:39→23:00)
[2021-10-26] MEDS: PHENERGAN INJ 25 MG IM PRN (18:22)
[2021-10-26] MEDS: SNACK - Diabetic Appropriate PO SCH (20:02)
[2021-10-26] MEDS: XANAX PO SCH (20:51)
[2021-10-26] MEDS: ELIQUIS PO SCH (20:51)
[2021-10-27] MEDS: PHENERGAN INJ 25 MG IM PRN (01:54)
[2021-10-27] MEDS: NORCO 5/325 MG TAB PO PRN ×4 (01:54→20:39)
[2021-10-27] MEDS: NS 1,000 ML IV 1,000 ML IV SCH ×3 (04:11→22:12)
[2021-10-27 04:21] LABS: BASOPHILS % (AUTO) 0.8 % (0.2-1.0); EOSINOPHILS # (AUTO) 0.1 x10^3/uL (0.0-0.2); EOSINOPHILS % (AUTO) 3.7 % (0.9-2.9); HEMATOCRIT 26.6 % (36.0-47.0); HEMOGLOBIN 8.8 g/dL (12.0-16.0); LYMPHOCYTES # (AUTO) 0.8 X10^3/uL (1.3-2.9); LYMPHOCYTES % (AUTO) 23.1 % (21.0-51.0); MEAN CORPUSCULAR HEMOGLOBIN 24.8 pg (27.0-34.0); MEAN CORPUSCULAR VOLUME 75.1 fL (80.0-100.0); MEAN PLATELET VOLUME 7.5 fL (7.4-11.0); MONOCYTES # (AUTO) 0.9 x10^3/uL (0.3-0.8); MONOCYTES % (AUTO) 24.3 % (0.0-13.0); NEUTROPHILS # (AUTO) 1.8 x10^3/uL (2.2-4.8); NEUTROPHILS % (AUTO) 48.1 % (42.0-75.0); RED BLOOD COUNT 3.55 X10^6/uL (3.5-5.4); RED CELL DISTRIBUTION WIDTH 18.5 % (11.6-16.5); WHITE BLOOD COUNT 3.7 X10^3/uL (3.6-10.0)
[2021-10-27 04:31] LABS: ALANINE AMINOTRANSFERASE 9 Units/L (12-78); ALBUMIN 2.1 g/dL (3.4-5.0); ALKALINE PHOSPHATASE 74 Units/L (46-116); ASPARTATE AMINO TRANSFERASE 17 Units/L (15-37); BLOOD UREA NITROGEN 11 mg/dL (7-18); CALCIUM 8.4 mg/dL (8.5-10.1); CARBON DIOXIDE 26.4 mmol/L (21-32); CHLORIDE 102 mmol/L (98-107); COR CA(FOR HYPOALB) 9.9 mg/dL (8.5-10.1); CREATININE 0.71 mg/dL (0.55-1.02); SODIUM 135 mmol/L (136-145); TOTAL PROTEIN 6.8 g/dL (6.4-8.2); eGFR NON BLACK RACES > 60 (>60)
[2021-10-27 04:37] LABS: ANISOCYTOSIS SLIGHT; BAND NEUTROPHILS % 2 % (0-10); HYPOCHROMASIA SLIGHT; MICROCYTOSIS SLIGHT; PLATELET MORPHOLOGY COMMENT NORMAL (NORMAL)
[2021-10-27] MEDS ORDERED: TYLENOL 325 MG TAB PO PRN (05:13)
[2021-10-27] MEDS ORDERED: TYLENOL 325 MG TAB PO ONE (05:19)
[2021-10-27] MEDS: PYRIDIUM PO PRN ×2 (08:23→16:24)
[2021-10-27] MEDS: XANAX PO SCH ×2 (08:23→20:38)
[2021-10-27] MEDS: INVanz INJ 1 GRAM VIAL 1 G in NS 100 ML IV 100 ML IV SCH (08:23)
[2021-10-27] MEDS: ELIQUIS PO SCH ×2 (08:23→20:38)
[2021-10-27] MEDS ORDERED: CLINIMIX 4.25%-5% 1,000 ML with MVI INJ (ADULT) 10 ML IV SCH ×2 (10:00)
[2021-10-27] MEDS ORDERED: NovoLIN R (or HumuLIN R) SUBCUT PRN (10:14)
[2021-10-27] MEDS: ZOFRAN INJ 4 MG VIAL IVP PRN (10:36)
--- NOTE | 2021-10-27 10:43 | DR.H&P ---
H&P - History & Physical for Day of: H&P Date: 10/26/21 - Chief Complaint Chief Complaint: NAUSEA, VOMITING, WEAKNESS, DYSURIA - History of Present Illness History of Present Illness: IS A 41 YEAR OLD PATIENT OF [facility]. WE WERE CONSUTLED FOR DIRECT ADMISSION OF PATIENT DUE TO INTRACTABLE NAUSEA, VOMITING, AND UTI. PATIENT WAS PRESCRIBED BACTRIM ON 10/24/21. SHE REPORTS COMPLIANCE WITH ANTIBIOTICS, HOWEVER, NAUSEA AND VOMITING AND PERSISTENTLY GOTTEN WORSE. PATIENT REPORTS GENERALIZED WEAKNESS AND FEVER WELL. TEMPERATURE AT HOME THIS MORNING WAS 102. PATIENT HAS A RECENT DIAGNOSIS OF COLON CANCER. SHE IS STATUS POST BOWEL RESECTION WITH COLOSTOMY AND HAS RECENTLY STARTED CHEMOTHERAPY. ON ARRIVAL TO THE HOSPITAL TODAY, VITALS WERE 98.0-305-81-100%-135/79. LABS WERE OBTAINED. WBC 3.2, RBC 4.05, HGB 10.2, HCT 30.7, SODIUM 134, POTASSIUM 4.1, CHLORIDE 100, BUN 13, CREATININE 0.79, GLUCOSE 144, CALCIUM 9.0, AST 19, ALT 14, ALK PHOS 90, TOTAL PROTEIN 8.0, ALBUMIN 2.5, GLOBULIN 5.5. URINALYSIS WAS OBTAINED AND REVEALED: WBC 3-5, RBC 30-50, BACTERIA TRACE, MODERATE SQUAMOUS EPITH CELLS. A URINE CULTURE WAS SET UP. BLOOD CULTURES WERE ALSO SET UP. A KUB WAS OBTAINED AND REVEALED: Intestinal gas pattern is nonobstructing and nonspecific. No focal ileus identified. No organ enlargement is identified although the spleen is prominent. There is no evidence for ascites or abnormal calcification. SHE WAS STARTED ON NORMAL SALINE AT 85 ML/HR, INVANZ 1G IV DAILY, OTBS ACHS, HUMULIN R SLIDING SCALE, ZOFRAN 4MG IV Q4H PRN, PHENERGAN 25MG IM Q6H PRN, PYRIDIUM 200MG PO Q8H PRN, NORCO 5/325MG PO Q4H PRN, ELIQUIS 5MG PO BID, XANAX 0.25MG PO BID, AND TYLENOL 650M G PO Q6H PRN. OTHERWISE, WE PLAN TO FOLLOW-UP WITH AM LABS AND CONTINUE TO MONITOR. TIME SPENT ON CLINICAL ASSESSMENT, REVIEWING LABS AND IMAGING, DECISION MAKING, AND DOCUMENTATION GREATER THAN 45 MINUTES. - Past Medical History Additional Medical History: COLON CANCER - Past Surgical History Surgical History: Additional Surgical History: BOWEL RESECTION WITH COLOSTOMY - Family History Family Medical History: Diabetes Mellitus, Hypertension - Social History Does patient currently use any type of tobacco product: No Have you used tobacco products in the last 12 months: No Type of Tobacco Use: None Does any household member use tobacco: No Alcohol Use: None Drug Use: None - Medications Home Medications: No Known Drug Allergies Allergy (Verified 07/19/21 09:09) CONTINUE taking the following medications alprazolam 0.25 mg PO BID 10/26/21 [History] apixaban [Eliquis] 5 mg PO BID 10/26/21 [History] hydrocodone-acetaminophen 1 tab PO Q4H PRN 10/26/21 [History] sulfamethoxazole-trimethoprim 1 tab PO BID 10/26/21 [History] - Review of Systems Constitutional: Fever, Weakness Eyes: No Symptoms Reported ENT: No Symptoms Reported Respiratory: No Symptoms Reported Cardiovascular: No Symptoms Reported Gastrointestinal: See HPI, Nausea, Vomiting Genitourinary: No Symptoms Reported Musculoskeletal: No Symptoms Reported Skin: No Symptoms Reported Neurological: Weakness - Physical Exam Vital Signs: Temperature 98.2 F Pulse Rate [Bilateral Radial] 108 Pulse Rate 96 Respiratory Rate 24 Blood Pressure [Right Arm] 152/63 Blood Pressure [Left Arm] 122/70 Blood Pressure 110/67 O2 Sat by Pulse Oximetry 98 Oriented: Normal Eyes: Normal Ear: Normal Nose: Normal Throat: Normal Respiratory: Clear Throughout Cardiovascular: Normal : Normal Auscultation: Bowel Sounds: Normal Palpation: Normal Tenderness: Normal Skin: Decreased Turgur Musculoskeletal: Normal Psychiatric: Normal Mood Description: Calm Affect: Normal Speech Pattern: Clear - Assessment/Plan (1) Urinary tract infection Qualifiers: Urinary tract infection type: acute cystitis Hematuria presence: with hematuria Qualified Code(s): N30.01 - Acute cystitis with hematuria Status: Acute Plan: ADMIT, NORMAL SALINE AT 85 ML/HR, INVANZ 1G IV DAILY, OTBS ACHS, HUMULIN R SLIDING SCALE, ZOFRAN 4MG IV Q4H PRN, PHENERGAN 25MG IM Q6H PRN, PYRIDIUM 200MG PO Q8H PRN, NORCO 5/325MG PO Q4H PRN, ELIQUIS 5MG PO BID, XANAX 0.25MG PO BID, AND TYLENOL 650M G PO Q6H PRN. (2) Intractable nausea and vomiting Status: Acute (3) Fever Qualifiers: Fever type: unspecified Qualified Code(s): R50.9 - Fever, unspecified Status: Acute (4) Generalized weakness Status: Acute (5) Hypoalbuminemia Status: Acute (6) Colon cancer Qualifiers: Colon location: unspecified part of colon Qualified Code(s): C18.9 - Malignant neoplasm of colon, unspecified Status: Acute - Allergies Allergies/Adverse Reactions: Allergies Allergy/AdvReac Type Severity Reaction Status Date / Time No Known Drug Allergies Allergy Verified 07/19/21 09:09
[2021-10-27] MEDS ORDERED: ALBUMIN HUMAN 25%- 100 ML 100 ML IV SCH (11:00)
[2021-10-27] MEDS ORDERED: COLACE CAP 100 MG PO PRN (19:07)
[2021-10-27] MEDS: SNACK - Diabetic Appropriate PO SCH (20:38)
[2021-10-28] MEDS: PYRIDIUM PO PRN (00:10)
[2021-10-28 05:01] LABS: BASOPHILS # (AUTO) 0.1 X10^3/uL (0.0-0.1); BASOPHILS % (AUTO) 1.3 % (0.2-1.0); EOSINOPHILS # (AUTO) 0.1 x10^3/uL (0.0-0.2); EOSINOPHILS % (AUTO) 3.5 % (0.9-2.9); HEMATOCRIT 26.3 % (36.0-47.0); HEMOGLOBIN 8.8 g/dL (12.0-16.0); LYMPHOCYTES % (AUTO) 22.9 % (21.0-51.0); MEAN CORPUSCULAR HEMOGLOBIN 25.2 pg (27.0-34.0); MEAN CORPUSCULAR HGB CONC 33.4 g/dL (33.0-35.0); MEAN CORPUSCULAR VOLUME 75.5 fL (80.0-100.0); MEAN PLATELET VOLUME 7.4 fL (7.4-11.0); MONOCYTES # (AUTO) 0.7 x10^3/uL (0.3-0.8); MONOCYTES % (AUTO) 15.3 % (0.0-13.0); NEUTROPHILS # (AUTO) 2.4 x10^3/uL (2.2-4.8); RED BLOOD COUNT 3.48 X10^6/uL (3.5-5.4); RED CELL DISTRIBUTION WIDTH 18.3 % (11.6-16.5); WHITE BLOOD COUNT 4.3 X10^3/uL (3.6-10.0)
[2021-10-28 05:06] LABS: ALANINE AMINOTRANSFERASE 9 Units/L (12-78); ALBUMIN 2.3 g/dL (3.4-5.0); ALKALINE PHOSPHATASE 77 Units/L (46-116); ASPARTATE AMINO TRANSFERASE 15 Units/L (15-37); BLOOD UREA NITROGEN 8 mg/dL (7-18); CALCIUM 8.1 mg/dL (8.5-10.1); CARBON DIOXIDE 24.6 mmol/L (21-32); CHLORIDE 103 mmol/L (98-107); COR CA(FOR HYPOALB) 9.5 mg/dL (8.5-10.1); COR NA(FOR HYPERGLY) 137 mmol/L (136-145); CREATININE 0.61 mg/dL (0.55-1.02); SODIUM 136 mmol/L (136-145); TOTAL PROTEIN 6.9 g/dL (6.4-8.2); eGFR NON BLACK RACES > 60 (>60)
[2021-10-28] MEDS: NS 1,000 ML IV 1,000 ML IV SCH (06:13)
[2021-10-28 09:22] VITALS: BP 122/63
== END 2021-10-28 09:40 | disposition home or self-care (01) ==
LOC: ICU
PROVIDERS: ADMIT Internal Medicine; ATTEND Internal Medicine
DX: R53.1 Weakness; Z93.3 Colostomy status; E11.65 Type 2 diabetes mellitus with hyperglycemia; C18.9 Malignant neoplasm of colon, unspecified; E88.09 Other disorders of plasma-protein metabolism, not elsewhere classified; N30.01 Acute cystitis with hematuria; Z92.21 Personal history of antineoplastic chemotherapy; R11.2 Nausea with vomiting, unspecified